=== PATIENT | female | born 1940 | race American Indian/Alaskan Native ===

== ENCOUNTER 2017-04-14 10:12 | Emergency (ER) | payer MEDICARE, OTHER ==
[2017-04-14 10:12] VITALS: BMI 25.0
--- NOTE | 2017-04-14 10:44 | C.PDOC ---
History Of Present Illness 77-year-old female, PMHx includes Anemia, Hypertension, CAD, Asthma, Hypothyroidism, Diabetes, and ESRD, brought to the emergency department for evaluation of light headedness during her dialysis (dialysis was completed). Patient's blood sugar was checked in the field - 83. She was given packets of glucose, with improvement of symptoms. She denies chest pain, shortness of breath, cough, fever, nausea, vomiting, diarrhea. Patient takes Novolog and Lantus for her DM. Nephrology- Herson Dueñas MD. Time Seen by Provider: 04/14/17 10:12 Chief Complaint (Nursing): Dizziness/Lightheaded History Per: Patient History/Exam Limitations: no limitations Onset/Duration Of Symptoms: Days Severity: Mild Past Medical History Reviewed: Historical Data, Nursing Documentation, Vital Signs Vital Signs: Last Vital Signs Temp 97.6 F 04/14/17 11:00 Pulse 75 04/14/17 12:37 Resp 16 04/14/17 12:37 BP 149/85 04/14/17 12:37 Pulse Ox 98 04/19/17 17:39 - Medical History PMH: Anemia, Asthma, CAD, Diabetes, HTN, Hypothyroidism, End Stage Renal Disease (3 x a week m-w-), Chronic Kidney Disease Surgical History: Coronary Stent - [facility] Procedures ASPIRATION SKIN & SUBQ (04/23/14) EXCISION OF RIGHT LOBE LIVER, PERCUTANEOUS APPROACH, DIAGN (04/01/16) FLUOROSCOPY OF GALLBLADDER & BILE DUCT USING L OSM CONTRAST (04/01/16) HEMODIALYSIS (02/17/15) PERFORMANCE OF URINARY FILTRATION, SINGLE (09/02/16) RESECTION OF GALLBLADDER, PERCUTANEOUS ENDOSCOPIC APPROACH (04/01/16) Family History: States: No Known Family Hx - Social History Hx Tobacco Use: No Hx Alcohol Use: No Hx Substance Use: No - Immunization History Hx Tetanus Toxoid Vaccination: No Hx Influenza Vaccination: No Hx Pneumococcal Vaccination: No Review Of Systems Except As Marked, All Systems Reviewed And Found Negative. Constitutional: Negative for: Fever Cardiovascular: Positive for: Light Headedness. Negative for: Chest Pain, Palpitations Respiratory: Negative for: Cough, Shortness of Breath Gastrointestinal: Negative for: Nausea, Vomiting, Abdominal Pain, Diarrhea Musculoskeletal: Negative for: Back Pain Skin: Negative for: Rash Neurological: Negative for: Headache, Dizziness Physical Exam - Physical Exam Appears: Well, Non-toxic, No Acute Distress Skin: Warm, Dry, No Rash Head: Normacephalic Eye(s): bilateral: Normal Inspection, PERRL, EOMI Oral Mucosa: Moist Neck: Normal, Normal ROM Cardiovascular: Rhythm Regular Respiratory: Normal Breath Sounds, No Rales, No Rhonchi, No Wheezing Gastrointestinal/Abdominal: Normal Exam, Bowel Sounds, Soft, No Tenderness Extremity: Normal ROM, Other (AV FISTULA IN RIGHT UPPER EXT WITH PALPABLE THRILL ) Pulses: Left Dorsalis Pedis: Normal, Right Dorsalis Pedis: Normal Neurological/Psych: Oriented x3 ED Course And Treatment - Laboratory Results Result Diagrams: 04/14/17 10:44 04/14/17 10:44 ECG: Interpreted By Me, Viewed By Me (sinus rhythm 66 bpm, PVCs, left axis deviation, no acute ST/T wave changes) O2 Sat by Pulse Oximetry: 98 (RA) Pulse Ox Interpretation: Normal - Radiology CXR: Interpreted by Me, Viewed By Me (no infiltrates/effusions) Progress Note: Bloodwork, EKG, Chest X-Ray ordered and reviewed. Patient requesting something to eat - fed in ED. Reevaluation Time: 12:15 Reassessment Condition: Improved (Patient reassessed, is currently resting comfortably, in no distress/pain. Patient states she feels much better and would like to be discharged home. Vitals are WNL, patient is well appearing and ambulating normally in ED. She was discharged home, instructed to follow up with PMD in 1-2 days. She understands she should return to ED if symptoms return/worsen.) Disposition Counseled Patient/Family Regarding: Studies Performed, Diagnosis, Need For Followup - Disposition Referrals: Herson Dueñas MD [Staff Provider] - Disposition: HOME/ ROUTINE Disposition Time: 12:15 Condition: STABLE Additional Instructions: FOLLOW UP WITH YOUR DOCTOR IN 1-2 DAYS EAT REGULAR MEALS RETURN TO ER IF YOU HAVE ANY CONCERNING SYMPTOMS Instructions: Lightheadedness (ED) Print Language: CYMRO - POA Present On Arrival: None - Clinical Impression Clinical Impression: Lightheadedness - Scribe Statement The provider has reviewed the documentation as recorded by the Scribhuey De León All medical record entries made by the Scribe were at my direction and personally dictated by me. I have reviewed the chart and agree that the record accurately reflects my personal performance of the history, physical exam, medical decision making, and the department course for this patient. I have also personally directed, reviewed, and agree with the discharge instructions and disposition.
--- NOTE | 2017-04-14 10:59 | RAD ---
PROCEDURE: CHEST RADIOGRAPH, 1 VIEW HISTORY: SOB COMPARISON: 09/02/2016 FINDINGS: LUNGS: Poor inspiration with low lung volumes, mild crowded bronchovascular markings and mild bibasilar atelectasis. . Previously noted mild venous congestive changes improved however there may be some mild chronic compensated pulmonary venous congestion. PLEURA: No pneumothorax or pleural fluid seen. CARDIOVASCULAR: Mild cardiomegaly. OSSEOUS STRUCTURES: Degenerative changes both shoulder girdles. Wilder VISUALIZED UPPER ABDOMEN: Normal. OTHER FINDINGS: Re- demonstrated is in situ endovascular stent within the medial aspect soft tissues right upper extremity with adjacent spur-surrounding multiple metallic vascular clips IMPRESSION: Poor inspiration with low lung volumes, mild crowded bronchovascular markings and mild bibasilar atelectasis. . Previously noted mild venous congestive changes improved however there may be some mild chronic compensated pulmonary venous congestion. Cardiomegaly.
[2017-04-14 11:12] LABS: BASO # 0.1 K/uL (0.0-0.2); BASO % 1.7 % (0.0-2.0); EOS # 0.3 K/uL (0.0-0.7); EOS % 5.9 % (0.0-4.0); HEMATOCRIT 36.3 % (34.0-47.0); LYMPH # 1.6 K/uL (1.0-4.3); LYMPH % 26.7 % (20.0-40.0); MEAN CELL VOLUME 78.7 fL (81.0-99.0); MEAN CORPUSCULAR HEMOGLOBIN 25.1 pg (27.0-31.0); MEAN CORPUSCULAR HGB CONC 31.9 g/dL (33.0-37.0); MEAN PLATELET VOLUME 8.9 fL (7.2-11.7); MONO # 0.7 K/uL (0.0-0.8); MONO % 12.5 % (0.0-10.0); NRBC % 0.2 % (0.0-2.0); RED CELL DISTRIBUTION WIDTH 19.8 % (11.5-14.5); WHITE BLOOD COUNT 5.8 K/uL (4.8-10.8)
[2017-04-14 11:27] LABS: POTASSIUM 3.9 mmol/L (3.6-5.2)
[2017-04-14 11:29] LABS: ALB/GLOB RATIO 1.2 (1.0-2.1); TOTAL PROTEIN 8.3 g/dL (6.3-8.3)
[2017-04-14 11:30] LABS: CALCIUM 8.7 mg/dl (8.6-10.4)
[2017-04-14 11:39] VITALS: PULSE 75; TEMP 97.6
[2017-04-14 11:39] LABS: TROPONIN I 0.064 ng/mL (0.00-0.120)
[2017-04-14 12:38] VITALS: BP 149/85; RESP 16; O2SAT 98
--- NOTE | 2017-04-15 18:41 | CARD ---
APPROVED REPORT EKG Measurement Heart [id number] <Conclusion> Sinus rhythm with occasional premature ventricular complexes Cannot rule out Anterior infarct, age undetermined Prolonged QT Abnormal ECG
== END 2017-04-14 12:37 | disposition home or self-care (01) ==
LOC: C.ER 10:12
DX: R42 Dizziness and giddiness (principal); I12.0 Hypertensive chronic kidney disease with stage 5 chronic kidney disease or end stage renal disease; E11.22 Type 2 diabetes mellitus with diabetic chronic kidney disease; N18.6 End stage renal disease; Z99.2 Dependence on renal dialysis

== ENCOUNTER 2017-05-14 09:42 | Observation (INO) | payer MEDICARE, OTHER ==
[2017-05-14 09:42] VITALS: BMI 25.0
--- NOTE | 2017-05-14 10:52 | C.PDOC ---
History Of Present Illness 77 year old patient, with a past medical history of Anemia, Asthma, CAD, Diabetes, HTN, Hypothyroidism, End Stage Renal Disease (M,W,F), BIBA for evaluation of left sided chest pain that began prior to arrival. Patient was at the end of her dialysis session when the pain began (approx 30 min left). She was given Aspirin and SL nitro ICT SECURITY SPECIALIST. Patient states she still has chest pain, but it has decreased in intensity. Patient denies shortness of breath, cough, fever, palpitations, nausea/vomiting. She states she was scheduled for a stress test today by Dr. Lenore Castellanos. Time Seen by Provider: 05/14/17 09:47 Chief Complaint (Nursing): Chest Pain History Per: Patient History/Exam Limitations: no limitations Onset/Duration Of Symptoms: Hrs (prior to arrival) Current Symptoms Are (Timing): Still Present Context: Other Severity: Mild Quality: "Pain" Exacerbating Factors: None Nitro Therapy Administered: 1 (at dialysis), Partial Relief Recent travel outside of the [place]: No Additional History Per: EMS Past Medical History Reviewed: Historical Data, Nursing Documentation, Vital Signs Vital Signs: Last Vital Signs Temp 98.2 F 05/16/17 14:40 Pulse 54 L 05/16/17 16:00 Resp 17 05/16/17 16:00 BP 118/82 05/16/17 16:00 Pulse Ox 97 05/16/17 16:00 - Medical History PMH: Anemia, Asthma, CAD, Diabetes, HTN, Hypothyroidism, End Stage Renal Disease (3 x a week m-w-f), Chronic Kidney Disease Surgical History: Coronary Stent - [facility] Procedures ASPIRATION SKIN & SUBQ (04/23/14) EXCISION OF RIGHT LOBE LIVER, PERCUTANEOUS APPROACH, DIAGN (04/01/16) FLUOROSCOPY OF GALLBLADDER & BILE DUCT USING L OSM CONTRAST (04/01/16) HEMODIALYSIS (02/17/15) PERFORMANCE OF URINARY FILTRATION, SINGLE (09/02/16) RESECTION OF GALLBLADDER, PERCUTANEOUS ENDOSCOPIC APPROACH (04/01/16) Family History: States: No Known Family Hx - Social History Hx Tobacco Use: No Hx Alcohol Use: No Hx Substance Use: No - Immunization History Hx Tetanus Toxoid Vaccination: No Hx Influenza Vaccination: No Hx Pneumococcal Vaccination: No Review Of Systems Except As Marked, All Systems Reviewed And Found Negative. Constitutional: Negative for: Fever Cardiovascular: Positive for: Chest Pain. Negative for: Palpitations Respiratory: Negative for: Cough, Shortness of Breath Gastrointestinal: Negative for: Nausea, Vomiting, Abdominal Pain, Diarrhea Physical Exam - Physical Exam Appears: Well, Non-toxic, No Acute Distress Skin: Warm, Dry Head: Normacephalic Eye(s): bilateral: Normal Inspection Oral Mucosa: Moist Neck: Normal ROM, Supple Cardiovascular: Rhythm Regular Respiratory: Normal Breath Sounds, No Rales, No Rhonchi, No Wheezing Gastrointestinal/Abdominal: Normal Exam, Bowel Sounds, Soft, No Tenderness Extremity: Normal ROM, No Tenderness, No Pedal Edema, No Calf Tenderness, No Swelling Neurological/Psych: Oriented x3, Other (speaking in full sentences) ED Course And Treatment - Laboratory Results Result Diagrams: 05/16/17 08:27 05/16/17 08:27 ECG: Interpreted By Me, Viewed By Me (sinus tachycardia 119 bpm, left axis deviation, PVCs, nonspecific ST elevation V2 - unchanged from prior EKG 04/14/17) ECG Rhythm: Sinus Tachycardia, PVC ECG Interpretation: No Changes From Prior, Abnormal Rate From EC (bpm) O2 Sat by Pulse Oximetry: 100 (room air) Pulse Ox Interpretation: Normal - Other Rad chest x-ray X-Ray: Read By Radiologist (Dilip Daly MD) Interpretation: PROCEDURE: CHEST RADIOGRAPH, 1 VIEW. HISTORY: cp. COMPARISON : Comparison chest 04/14/2017. Comparison chest. FINDINGS: LUNGS: The right lung apex partially obscured by overlying facial soft tissue and mandible artifact. Lung alejandro are otherwise clear. PLEURA: No pneumothorax or pleural fluid seen. CARDIOVASCULAR: Heart size is upper limits of normal/ borderline enlarged. Aorta is slightly ectatic and uncoiled. OSSEOUS STRUCTURES: No significant abnormalities. VISUALIZED UPPER ABDOMEN: Normal. OTHER FINDINGS: Re- demonstrated is in situ vascular stent medial soft tissues proximal right upper extremity. IMPRESSION: Slightly limited study demonstrating no acute cardiopulmonary disease. Progress Note: Blood work, EKG, CXR ordered and reviewed. Patient already given SL nitro and ASA prior to ED arrival. Discussed patient with Dr. Castellanos , patient to be admitted to hospitalist service for chest pain, r/o ACS. - Physician Consult Information Physician Contacted: Justyna Reyez Outcome Of Conversation: Hospitalist accepts patient for obs tele - chest pain, r/o ACS. Disposition - Disposition Disposition: HOSPITALIZED Disposition Time: 13:46 Condition: STABLE - Clinical Impression Clinical Impression: ESRD (end stage renal disease), Chest pain - Scribe Statement The provider has reviewed the documentation as recorded by the Scribe Melony Garcia Provider Attestation: All medical record entries made by the Scribe were at my direction and personally dictated by me. I have reviewed the chart and agree that the record accurately reflects my personal performance of the history, physical exam, medical decision making, and the department course for this patient. I have also personally directed, reviewed, and agree with the discharge instructions and disposition. Decision To Admit - Pt Status Changed To: Hospital Disposition Of: Observation - . Bed Request Type: Telemetry Admitting Physician: Justyna Reyez Patient Diagnosis: Chest pain, ESRD (end stage renal disease)
--- NOTE | 2017-05-14 11:02 | RAD ---
PROCEDURE: CHEST RADIOGRAPH, 1 VIEW HISTORY: cp COMPARISON: Comparison chest 04/14/2017. Comparison chest FINDINGS: LUNGS: The right lung apex partially obscured by overlying facial soft tissue and mandible artifact. Lung alejandro are otherwise clear PLEURA: No pneumothorax or pleural fluid seen. CARDIOVASCULAR: Heart size is upper limits of normal/ borderline enlarged. Aorta is slightly ectatic and uncoiled. OSSEOUS STRUCTURES: No significant abnormalities. VISUALIZED UPPER ABDOMEN: Normal. OTHER FINDINGS: Re- demonstrated is in situ vascular stent medial soft tissues proximal right upper extremity IMPRESSION: Slightly limited study demonstrating no acute cardiopulmonary disease.
[2017-05-14 11:11] LABS: BASO # 0.1 K/uL (0.0-0.2); BASO % 1.6 % (0.0-2.0); EOS # 0.2 K/uL (0.0-0.7); EOS % 5.8 % (0.0-4.0); HEMATOCRIT 37.9 % (34.0-47.0); LYMPH # 0.9 K/uL (1.0-4.3); LYMPH % 21.8 % (20.0-40.0); MEAN CELL VOLUME 82.1 fL (81.0-99.0); MEAN CORPUSCULAR HEMOGLOBIN 25.9 pg (27.0-31.0); MEAN CORPUSCULAR HGB CONC 31.5 g/dL (33.0-37.0); MEAN PLATELET VOLUME 8.2 fL (7.2-11.7); MONO # 0.4 K/uL (0.0-0.8); MONO % 11.1 % (0.0-10.0); NRBC % 0.1 % (0.0-2.0); RED CELL DISTRIBUTION WIDTH 18.3 % (11.5-14.5)
[2017-05-14 11:28] LABS: POTASSIUM 3.9 mmol/L (3.6-5.2)
[2017-05-14 11:31] LABS: ALB/GLOB RATIO 1.3 (1.0-2.1); CALCIUM 8.1 mg/dl (8.6-10.4); TOTAL PROTEIN 7.7 g/dL (6.3-8.3)
[2017-05-14 11:42] LABS: TROPONIN I 0.047 ng/mL (0.00-0.120)
--- NOTE | 2017-05-14 14:10 | CP.PCM.HP ---
<Carole Heart - Last Filed: 05/14/17 16:08> History of Present Illness - History of Present Illness History of Present Illness: CC: chest pain HPI: 77 year old female with extensive PMHx significant for coronary stent placement, HTN, DM, ESRD on HD and CVA presents with chief complaint of chest pain earlier today while at dialysis. Patient states that she was at hemodialysis center when she passed out on the bed. Patient states that she was experiencing some chest pain at the time and was administered 4 baby aspirins . The pain was described as a sharp 9/10 pain without radiation. She denied associations with ambulation, respirations or body positions. EMS was called and patient was brought for evaluation. Patient states that she has never experienced such an occurrence. She states that her symptoms have now resolved. Patient now denies chest pain, palpitaitons, shortness of breath, vision changes, headaches, abdominal pain, nausea paresthesias at this time. PMH: as stated above PSH: AV fistula, AV graft, coronary stent, cholecystectomy, liver cyst drainage Home meds: Amlodipine 10 mg daily, ASA 81 mg daily, Lipitor 20 mg daily, Coreg 3.125 mg daily, Sensipar 30 mg daily, Catapres 0.3 mg PO BID, Nexium 40 mg daily , Cozaar 50 mg PO daily, Trileptal 150 mg PO daily, Calcium acetate 667 mg Po daily, Crestor 10 mg Po daily, Crestor 0 mg daily, Megestrol Acetate 40 mg daily FMH: father had DM and ESRD Social: denied ETOH, ever smoking or drug use Allergies: NKDA PMD: Dr. Liz Alexander Present on Admission - Present on Admission Any Indicators Present on Admission: No Review of Systems - Cardiovascular Cardiovascular: Chest Pain, Syncope. absent: Palpitations - Respiratory Respiratory: absent: Cough - Gastrointestinal Gastrointestinal: Vomiting. absent: Abdominal Pain - Genitourinary Genitourinary: absent: Change in Urinary Stream - Musculoskeletal Musculoskeletal: absent: Muscle Weakness, Numbness - Integumentary Integumentary: Dry Skin - Neurological Neurological: absent: Confusion, Numbness - Psychiatric Psychiatric: absent: Anxiety Past Patient History - Infectious Disease Hx of Infectious Diseases: None - Tetanus Immunizations Tetanus Immunization: Unknown - Past Medical History & Family History Past Medical History?: Yes - Past Social History Smoking Status: Never Smoked Alcohol: None Drugs: Denies Home Situation {Lives}: Alone - CARDIAC Hx Hypertension: Yes - PULMONARY Hx Asthma: Yes - NEUROLOGICAL Hx Neurological Disorder: No - HEENT Hx HEENT Problems: No - RENAL Hx Chronic Kidney Disease: Yes - ENDOCRINE/METABOLIC Hx Hypothyroidism: Yes - HEMATOLOGICAL/ONCOLOGICAL Hx Anemia: Yes - INTEGUMENTARY Hx Dermatological Problems: No - MUSCULOSKELETAL/RHEUMATOLOGICAL Hx Musculoskeletal Disorders: No Hx Falls: No - GASTROINTESTINAL Hx Gastrointestinal Disorders: No - GENITOURINARY/GYNECOLOGICAL Hx Genitourinary Disorders: No - PSYCHIATRIC Hx Substance Use: No - SURGICAL HISTORY Hx Coronary Stent: Yes - ANESTHESIA Hx Anesthesia: Yes Hx Anesthesia Reactions: No Hx Malignant Hyperthermia: No Meds Allergies/Adverse Reactions: Allergies Allergy/AdvReac Type Severity Reaction Status Date / Time No Known Allergies Allergy Verified 04/14/17 10:20 Physical Exam - Constitutional Appears: Non-toxic - Head Exam Head Exam: ATRAUMATIC, NORMAL INSPECTION, NORMOCEPHALIC - Eye Exam Eye Exam: EOMI, Normal appearance, PERRL Pupil Exam: NORMAL ACCOMODATION - ENT Exam ENT Exam: Mucous Membranes Moist, Normal Exam - Neck Exam Neck exam: Positive for: Full Rom - Respiratory Exam Respiratory Exam: NORMAL BREATHING PATTERN. absent: Wheezes - Cardiovascular Exam Cardiovascular Exam: REGULAR RHYTHM, +S1, +S2 - GI/Abdominal Exam GI & Abdominal Exam: Normal Bowel Sounds, Soft - Extremities Exam Extremities exam: Positive for: full ROM, pedal edema (trace), pedal pulses present - Back Exam Back exam: FULL ROM - Neurological Exam Neurological exam: Alert, CN II-XII Intact, Oriented x3 - Psychiatric Exam Psychiatric exam: Normal Affect, Normal Mood - Skin Skin Exam: Dry, Intact, Normal Color, Warm Results - Vital Signs Recent Vital Signs: Last Vital Signs Temp 98.4 F 05/14/17 09:49 Pulse 73 05/14/17 13:25 Resp 18 05/14/17 13:25 BP 159/69 H 05/14/17 13:25 Pulse Ox 100 05/14/17 13:50 - Labs Result Diagrams: 05/14/17 10:48 05/14/17 10:48 Assessment & Plan (1) Chest pain, rule out acute myocardial infarction Assessment and Plan: EKG:Sinus tachy with premature supraventricular complexes noted Troponin 1 negative Hx of coronary stent placement years ago (Pt could not quantify when) ASA 81 mg, Crestor 10 mg F/U HSAWNA 2 and 3 with EKGS F/U Echo, Lipid Panel, Hgb A1c, Thyroid studies Status: Acute (2) ESRD on hemodialysis Assessment and Plan: ESRD on HD M,W,F Had HD on 05/14 Calcium Acetate 667 mg PO TID Consult to Nephrology Dr. Dueñas- F/U Status: Chronic (3) DM type 2 (diabetes mellitus, type 2) Assessment and Plan: Accuchecks ISS F/U Hgb A1c ESRD on HD M,W,F Had HD on 05/14 Status: Chronic (4) Hypertension Assessment and Plan: Continue Home Meds at this time: Amlodipine, Coreg, Cozaar, Catapres Hold parameters for SBP under 110 Continue to monitor BP Status: Chronic (5) Prophylactic measure Assessment and Plan: Heparin SC Q12 PPI 40 mg daily SCDs Status: Acute <Justyna Reyez V - Last Filed: 05/16/17 10:53> Results - Vital Signs Recent Vital Signs: Last Vital Signs Temp 98.1 F 05/16/17 07:10 Pulse 59 L 05/16/17 07:10 Resp 20 05/16/17 07:10 BP 155/69 H 05/16/17 07:10 Pulse Ox 97 05/16/17 07:10 - Labs Result Diagrams: 05/16/17 08:27 05/16/17 08:27 Labs: Laboratory Results - last 24 hr 05/15/17 05/15/17 05/15/17 07:37 11:31 16:02 WBC RBC Hgb Hct MCV MCH MCHC RDW Plt Count MPV Neut % (Auto) Lymph % (Auto) White % (Auto) Eos % (Auto) Baso % (Auto) Neut # Lymph # White # Eos # Baso # Sodium Potassium Chloride Carbon Dioxide Anion Gap BUN Creatinine 7.4 H* D Est GFR ( Amer) Est GFR (Non-Af Amer) POC Glucose (mg/dL) 152 H 94 Random Glucose Calcium Phosphorus Magnesium Total Bilirubin AST ALT Alkaline Phosphatase Total Protein Albumin Globulin Albumin/Globulin Ratio 05/15/17 05/15/17 05/16/17 17:59 21:40 06:44 WBC RBC Hgb Hct MCV MCH MCHC RDW Plt Count MPV Neut % (Auto) Lymph % (Auto) White % (Auto) Eos % (Auto) Baso % (Auto) Neut # Lymph # White # Eos # Baso # Sodium Potassium Chloride Carbon Dioxide Anion Gap BUN Creatinine Est GFR ( Amer) Est GFR (Non-Af Amer) POC Glucose (mg/dL) 206 H 218 H 165 H Random Glucose Calcium Phosphorus Magnesium Total Bilirubin AST ALT Alkaline Phosphatase Total Protein Albumin Globulin Albumin/Globulin Ratio 05/16/17 05/16/17 08:27 08:27 WBC 4.1 L RBC 4.14 Hgb 11.0 Hct 34.4 MCV 82.9 MCH 26.6 L MCHC 32.1 L RDW 18.0 H Plt Count 200 MPV 8.5 Neut % (Auto) 40.9 L Lymph % (Auto) 33.2 White % (Auto) 14.6 H Eos % (Auto) 9.1 H Baso % (Auto) 2.2 H Neut # 1.7 L Lymph # 1.4 White # 0.6 Eos # 0.4 Baso # 0.1 Sodium 134 Potassium 4.9 Chloride 95 L Carbon Dioxide 29 Anion Gap 15 BUN 29 H Creatinine 5.8 H Est GFR ( Amer) 9 Est GFR (Non-Af Amer) 7 POC Glucose (mg/dL) Random Glucose 131 H Calcium 8.2 L Phosphorus 4.8 H Magnesium 2.2 Total Bilirubin 0.6 AST 35 ALT 12 Alkaline Phosphatase 112 Total Protein 6.8 Albumin 3.5 D Globulin 3.3 Albumin/Globulin Ratio 1.1 Attending/Attestation - Attestation I have personally seen and examined this patient.: Yes I have fully participated in the care of the patient.: Yes I have reviewed all pertinent clinical information: Yes Notes (Text): This is late computer entry for 05/14/17. Patient seen, examined and case discussed with day-time resident. Patient seen at bedside, reporting she had chest pain during her dialysis session, which prompted the dialysis to send her to the emergency room for evaluation. Patient's PMD/Secondary Market Manager informed by the emergency room; and was actually scheduled for outpatient stress test the day after but came into the emergency room. Patient has history of CAD with stents, Diabetes, and Hypertension. Discussed admitting orders with admitting resident. Observe patient on telemetry. Consult patient's host hostess for dialysis orders. Will follow-up with patient's production sound mixer/PMD if further cardiac is needed. Assessment & Plan (1) Chest pain Assessment and Plan: * EKG:Sinus tachy with premature supraventricular complexes noted * Troponin 1 negative * Hx of coronary stent placement years ago (Pt could not quantify when) * ASA 81 mg PO daily * Crestor 10 mg PO qHS * F/U SHAWNA 2 and 3 with EKGS * F/U Echo, Lipid Panel, Hgb A1c, Thyroid studies Status: Acute (2) CAD with stent Assessment and Plan: * ASA 81 mg PO daily * Crestor 10 mg PO qHS * F/U SHAWNA 2 and 3 with EKGS * F/U Echo, Lipid Panel, Hgb A1c, Thyroid studies * Amlodipine 10mg PO qdaily * Coreg 6.25mg PO bid * Clonidine 0.3mg PO bid Status: Acute (3) ESRD on hemodialysis Assessment and Plan: * ESRD on HD M,W,F as outpatient * Had HD on 05/14 * Calcium Acetate 667 mg PO TID * Consult to Nephrology Dr. Dueñas- patient's host hostess Status: Chronic (4) DM type 2 (diabetes mellitus, type 2) Assessment and Plan: * Accuchecks QAC and HS * ISS * F/U Hgb A1c Status: Chronic (5) Hypertension Assessment and Plan: * Amlodipine 10mg PO qdaily * Coreg 6.25mg PO bid * Clonidine 0.3mg PO bid * ESRD on MWF * Completed dialysis on admission Status: Chronic (6) Prophylactic measure Assessment and Plan: * Heparin 5000 unit SC Q12 * Protonix 40 mg daily * SCDS b/l Status: Acute
--- NOTE | 2017-05-14 15:54 | CP.PCM.CON ---
History of Present Illness - History of Present Illness History of Present Illness: CC: chest pain HPI: 77 year old female with extensive PMHx significant for coronary stent placement, HTN, DM, ESRD on HD and CVA presents with chief complaint of chest pain earlier today while at dialysis. Patient states that she was at hemodialysis center when she passed out on the bed. Patient states that she was experiencing some chest pain at the time and was administered 4 baby aspirins . The pain was described as a sharp 9/10 pain without radiation. She denied associations with ambulation, respirations or body positions. EMS was called and patient was brought for evaluation. Patient states that she has never experienced such an occurrence. She states that her symptoms have now resolved. Patient now denies chest pain, palpitaitons, shortness of breath, vision changes, headaches, abdominal pain, nausea paresthesias at this time. PMH: as stated above PSH: AV fistula, AV graft, coronary stent, cholecystectomy, liver cyst drainage Home meds: Amlodipine 10 mg daily, ASA 81 mg daily, Lipitor 20 mg daily, Coreg 3.125 mg daily, Sensipar 30 mg daily, Catapres 0.3 mg PO BID, Nexium 40 mg daily , Cozaar 50 mg PO daily, Trileptal 150 mg PO daily, Calcium acetate 667 mg Po daily, Crestor 10 mg Po daily, Crestor 0 mg daily, Megestrol Acetate 40 mg daily FMH: father had DM and ESRD Social: denied ETOH, ever smoking or drug use Allergies: NKDA Dialysis done today. For cardiac evaluation. Will reschedule dialysis as needed. Consult dictated Past Patient History - Infectious Disease Hx of Infectious Diseases: None - Tetanus Immunizations Tetanus Immunization: Unknown - Past Medical History & Family History Past Medical History?: Yes - Past Social History Smoking Status: Never Smoked - CARDIAC Hx Hypertension: Yes - PULMONARY Hx Asthma: Yes - NEUROLOGICAL Hx Neurological Disorder: No - HEENT Hx HEENT Problems: No - RENAL Hx Chronic Kidney Disease: Yes - ENDOCRINE/METABOLIC Hx Hypothyroidism: Yes - HEMATOLOGICAL/ONCOLOGICAL Hx Anemia: Yes - INTEGUMENTARY Hx Dermatological Problems: No - MUSCULOSKELETAL/RHEUMATOLOGICAL Hx Musculoskeletal Disorders: No Hx Falls: No - GASTROINTESTINAL Hx Gastrointestinal Disorders: No - GENITOURINARY/GYNECOLOGICAL Hx Genitourinary Disorders: No - PSYCHIATRIC Hx Substance Use: No - SURGICAL HISTORY Hx Coronary Stent: Yes - ANESTHESIA Hx Anesthesia: Yes Hx Anesthesia Reactions: No Hx Malignant Hyperthermia: No Meds Allergies/Adverse Reactions: Allergies Allergy/AdvReac Type Severity Reaction Status Date / Time No Known Allergies Allergy Verified 04/14/17 10:20 - Medications Medications: Current Medications Amlodipine Besylate (Norvasc) 10 mg PO DAILY [facility] Aspirin (Ecotrin) 81 mg PO DAILY [facility] Carvedilol (Coreg) 3.125 mg PO DAILY [facility] Cinacalcet (Sensipar) 30 mg PO DAILY [facility] Clonidine HCl (Catapres) 0.3 mg PO BID [facility] Heparin Sodium (Porcine) (Heparin) 5,000 units SC Q12 [facility] Home Med (Atorvastatin [Lipitor]) 20 mg PO DAILY [facility] Home Med (Calcium Acetate [Phoslo]) 667 mg PO DAILY [facility] Home Med (Esomeprazole Magnesium [Nexium]) 40 mg PO DAILY [facility] Insulin Aspart (Novolog) 0 unit SC ACHS [facility] PRN Reason: Protocol Oxcarbazepine (Trileptal) 150 mg PO DAILY [facility] Results - Vital Signs Recent Vital Signs: Last Vital Signs Temp 98.4 F 05/14/17 09:49 Pulse 73 05/14/17 13:25 Resp 18 05/14/17 13:25 BP 159/69 H 05/14/17 13:25 Pulse Ox 100 05/14/17 13:50 - Labs Result Diagrams: 05/14/17 10:48 05/14/17 10:48
[2017-05-14] MEDS: (Novolog) Insulin Aspart, Recombinant 100 u/ml 10 ml vial SC SCH ×2 (17:37→22:00)
--- NOTE | 2017-05-14 18:42 | CON ---
DATE: 05/14/2017 HISTORY OF PRESENT ILLNESS: The patient is a 77-year-old female with past medical history of end-sta ge renal disease and known coronary artery disease. She presented with initially chest pain at dialy [facility], received nitroglycerin at dialysis. She had a syncopal episode. It is unclear if this preceded the chest pain or afterwards. She was brought into the Emergency Department by EMS from the dialysi s unit. She received almost a full dialysis today. PAST MEDICAL HISTORY: End-stage renal disease, coronary artery disease for which she is status post coronary stent placement, diabetes mellitus type 2, hypertension, diabetic nephropathy and is status post cerebrovascular accident. PAST SURGICAL HISTORY: Cholecystectomy, the coronary stent, AV graft, a previous AV fistula which fa iled, and liver cyst drainage. MEDICATIONS: Include amlodipine, aspirin, Lipitor, Coreg, Sensipar, Catapres, Nexium, Cozaar, Trilep lenin, calcium acetate, Crestor, Megace recently for poor nutrition. FAMILY HISTORY: Has several children with chronic kidney disease. REVIEW OF SYSTEMS: Significant for chest pain at times with increased activity, but not recently. S he has dyspnea on exertion at 2-3 blocks. No new rashes, no visual disturbances, hearing deficits. No nausea, vomiting, diarrhea. She has little urine output. Other review of systems are all negativ e. PHYSICAL EXAMINATION: VITAL SIGNS: Blood pressure 159/69, pulse 73, temperature 98.4, pulse ox was 100%. HEENT: Anicteric. Mouth was clear. NECK: No JVD. LUNGS: Lung alejandro were clear. HEART: Regular rhythm, no murmur. ABDOMEN: Soft, benign, no mass or organomegaly. EXTREMITIES: She had an upper extremity AV graft with a thrill and bruit. No peripheral edema. NEUROLOGIC: No focal deficits. BLOOD WORK: Showed hemoglobin 11.9, potassium of 3.9, creatinine of 4.8 (that is post-dialysis), emiliano cium 8.1. ProBNP is 30,700. The one troponin was negative. DIAGNOSTIC DATA: She had a chest x-ray. It was a limited study, but no congestive heart failure see n or infiltrate. IMPRESSION: The patient has had a syncopal episode and chest pain earlier. She has end-stage renal disease, history of coronary artery disease, hypertension, diabetes mellitus and a prior history of c erebrovascular accident. PLAN: Will be cardiac workup, possibly a stress test and/or cardiac catheterization and likely echoc ardiogram as well. We will arrange for dialysis on Friday, Friday and Friday. We will follow up. Herson Dueñas MD cc: [id number] TT: 05/14/2017 18:41:45 Confirmation # [id number] Dictation # [id number] kevin
[2017-05-15 07:49] LABS: BASO # 0.1 K/uL (0.0-0.2); EOS # 0.3 K/uL (0.0-0.7); EOS % 6.4 % (0.0-4.0); LYMPH # 1.7 K/uL (1.0-4.3); LYMPH % 32.5 % (20.0-40.0); MEAN CELL VOLUME 81.8 fL (81.0-99.0); MEAN CORPUSCULAR HEMOGLOBIN 26.5 pg (27.0-31.0); MEAN CORPUSCULAR HGB CONC 32.4 g/dL (33.0-37.0); MEAN PLATELET VOLUME 7.7 fL (7.2-11.7); MONO # 0.6 K/uL (0.0-0.8); NRBC % 0.1 % (0.0-2.0); RED CELL DISTRIBUTION WIDTH 18.5 % (11.5-14.5); WHITE BLOOD COUNT 5.4 K/uL (4.8-10.8)
[2017-05-15 08:33] LABS: BILIRUBIN,TOTAL 0.8 mg/dL (0.2-1.3); POTASSIUM 5.5 mmol/L (3.6-5.2)
[2017-05-15 08:34] LABS: ALB/GLOB RATIO 1.2 (1.0-2.1); CALCIUM 8.4 mg/dl (8.6-10.4); PHOSPHOROUS 5.6 mg/dL (2.5-4.5); TOTAL PROTEIN 7.9 g/dL (6.3-8.3)
[2017-05-15 08:35] LABS: MAGNESIUM 2.2 mg/dL (1.6-2.3)
--- NOTE | 2017-05-15 09:12 | CP.PCM.PN ---
<SlyElenaoli - Last Filed: 05/15/17 11:53> Subjective - Date & Time of Evaluation Date of Evaluation: 05/15/17 Time of Evaluation: 07:47 - Subjective Subjective: PGY 1 Medicine Note- Dr. Reyez's service Pt seen and examined in no acute distress. Patient states that she is aware that her blood pressure is elevated. She just received a phone call regarding an appointment that she was to have today. Patient states that she forgot to reschedule yesterday upon arrival here at the hospital. In addition, she just spoke with daughter on the phone who was asking many questions regarding patient 's current stay at the hospital. Patient stated, " I'm dealing with several issues at the moment. You know how family can be". Patient denies subjective fevers or chills, nausea, vomiting, diarrhea or constipation at this time. Objective - Vital Signs/Intake and Output Vital Signs (last 24 hours): Temp Pulse Resp BP Pulse Ox 98.3 F 69 20 186/82 H 96 05/15/17 07:00 05/15/17 07:00 05/15/17 07:00 05/15/17 07:00 05/15/17 07:00 Intake and Output: 05/15/17 05/15/17 06:59 18:59 Intake Total 250 Balance 250 - Medications Medications: Current Medications Amlodipine Besylate (Norvasc) 10 mg PO DAILY [facility] Aspirin (Ecotrin) 81 mg PO DAILY [facility] Calcium Acetate (Phoslo) 667 mg PO TID [facility] Last Admin: 05/14/17 20:24 Dose: 667 mg Carvedilol (Coreg) 3.125 mg PO DAILY [facility] Cinacalcet (Sensipar) 30 mg PO DAILY [facility] Clonidine HCl (Catapres) 0.3 mg PO BID [facility] Last Admin: 05/14/17 20:24 Dose: 0.3 mg Heparin Sodium (Porcine) (Heparin) 5,000 units SC Q12 [facility] Last Admin: 05/14/17 21:56 Dose: 5,000 units Hydralazine HCl (Apresoline) 10 mg IVP Q6H PRN PRN Reason: Systolic Blood Pressure Insulin Aspart (Novolog) 0 unit SC ACHS [facility] PRN Reason: Protocol Last Admin: 05/14/17 22:00 Dose: Not Given Oxcarbazepine (Trileptal) 150 mg PO DAILY [facility] Pantoprazole Sodium (Protonix Ec Tab) 40 mg PO DAILY [facility] Rosuvastatin Calcium (Crestor) 10 mg PO HS [facility] Last Admin: 05/14/17 21:55 Dose: Not Given - Labs Labs: 05/15/17 07:37 05/15/17 07:37 PT 11.0 SECONDS (9.7-12.2) 05/15/17 07:37 INR 1.0 05/15/17 07:37 APTT 29 SECONDS (21-34) 05/15/17 07:37 - Constitutional Appears: Non-toxic, No Acute Distress - Head Exam Head Exam: ATRAUMATIC, NORMAL INSPECTION, NORMOCEPHALIC - Eye Exam Eye Exam: EOMI, Normal appearance, PERRL Pupil Exam: NORMAL ACCOMODATION - ENT Exam ENT Exam: Mucous Membranes Moist - Neck Exam Neck Exam: Full ROM - Respiratory Exam Respiratory Exam: NORMAL BREATHING PATTERN. absent: Wheezes - Cardiovascular Exam Cardiovascular Exam: +S1, +S2 - GI/Abdominal Exam GI & Abdominal Exam: Soft, Normal Bowel Sounds - Extremities Exam Extremities Exam: Full ROM, Normal Capillary Refill - Back Exam Back Exam: Full ROM - Neurological Exam Neurological Exam: Alert, Awake, CN II-XII Intact, Oriented x3 - Psychiatric Exam Psychiatric exam: Normal Affect, Normal Mood - Skin Skin Exam: Dry, Intact, Normal Color, Warm Assessment and Plan (1) Chest pain, rule out acute myocardial infarction Status: Acute (2) ESRD on hemodialysis Status: Chronic (3) DM type 2 (diabetes mellitus, type 2) Status: Chronic (4) Hypertension Status: Chronic (5) Prophylactic measure Status: Acute - Assessment and Plan (Free Text) Assessment: (1) Chest pain, rule out acute myocardial infarction Assessment and Plan: EKG:Sinus tachy with premature supraventricular complexes noted Hx of coronary stent placement years ago (Pt could not quantify when) ASA 81 mg, Crestor 10 mg ROMIs negative x3 EKGS F/U Echo official reading. Lipid Panel WNL, F/U Hgb A1c, Thyroid studies WNL Status: Acute (2) ESRD on hemodialysis Assessment and Plan: ESRD typically on HD M,W,F . Will need dialysis today due to elevated electrolytes. Had HD on 05/14 though likely not complete due to syncopal event. Calcium Acetate 667 mg PO TID Consult to Nephrology Dr. Dueñas- F/U Status: Chronic (3) DM type 2 (diabetes mellitus, type 2) Assessment and Plan: Accbabatunderustam CARBAJAL F/U Hgb A1c Had HD on 05/14 Status: Chronic (4) Hypertension Assessment and Plan: Continue Home Meds at this time: Amlodipine, Coreg, Cozaar, Catapres Hold parameters for SBP under 110 Hydralazine 10 mg IVP Q6 PRN for SBP above 160 Continue to monitor BP Patient BP elevated early this morning- Likely situational in nature. Gave norvasc dose early. Discussed the effects of life stressors on patient. Status: Chronic (5) Prophylactic measure Assessment and Plan: Heparin SC Q12 PPI 40 mg daily [facility] <Justyna Reyez V - Last Filed: 05/16/17 11:02> Objective - Vital Signs/Intake and Output Vital Signs (last 24 hours): Temp Pulse Resp BP Pulse Ox 98.1 F 59 L 20 155/69 H 97 05/16/17 07:10 05/16/17 07:10 05/16/17 07:10 05/16/17 07:10 05/16/17 07:10 - Medications Medications: Current Medications Amlodipine Besylate (Norvasc) 10 mg PO DAILY [facility] Last Admin: 05/15/17 11:50 Dose: Not Given Aspirin (Ecotrin) 81 mg PO DAILY [facility] Last Admin: 05/16/17 09:58 Dose: 81 mg Calcium Acetate (Phoslo) 667 mg PO TID [facility] Last Admin: 05/16/17 09:58 Dose: 667 mg Carvedilol (Coreg) 6.25 mg PO BID [facility] Last Admin: 05/16/17 09:58 Dose: 6.25 mg Cinacalcet (Sensipar) 30 mg PO DAILY [facility] Last Admin: 05/16/17 09:58 Dose: 30 mg Clonidine HCl (Catapres) 0.3 mg PO BID [facility] Last Admin: 05/16/17 09:57 Dose: 0.3 mg Heparin Sodium (Porcine) (Heparin) 5,000 units SC Q12 [facility] Last Admin: 05/16/17 09:57 Dose: 5,000 units Hydralazine HCl (Apresoline) 10 mg IVP Q6H PRN PRN Reason: Systolic Blood Pressure Insulin Aspart (Novolog) 0 unit SC ACHS [facility] PRN Reason: Protocol Last Admin: 05/16/17 08:23 Dose: 2 unit Oxcarbazepine (Trileptal) 150 mg PO DAILY [facility] Last Admin: 05/16/17 09:58 Dose: 150 mg Pantoprazole Sodium (Protonix Ec Tab) 40 mg PO DAILY [facility] Last Admin: 05/16/17 09:58 Dose: 40 mg Rosuvastatin Calcium (Crestor) 10 mg PO HS [facility] Last Admin: 05/15/17 22:22 Dose: 10 mg - Labs Labs: 05/16/17 08:27 05/16/17 08:27 PT 11.0 SECONDS (9.7-12.2) 05/15/17 07:37 INR 1.0 05/15/17 07:37 APTT 29 SECONDS (21-34) 05/15/17 07:37 Attending/Attestation - Attestation I have personally seen and examined this patient.: Yes I have fully participated in the care of the patient.: Yes I have reviewed all pertinent clinical information, including history, physical exam and plan: Yes Notes (Text): This is a late computer entry for 05/15/17. Patient seen this morning. Patient reports she had stressful conversation with her daughter which will influence her blood pressure. Patient denies chest pain , denies shortness of breathe, denies palpitations. Patient scheduled for additional dialysis session given mildly elevated hyperkalemia by nephrology. Patient has completed echocardiogram, awaiting report. Assessment & Plan (1) Chest pain Assessment and Plan: * EKG:Sinus tachy with premature supraventricular complexes noted * Hx of coronary stent placement years ago (Pt could not quantify when) * ASA 81 mg PO daily * Crestor 10 mg PO qHS * SHAWNA X3: negative * F/U Echo: pending * Hgb A1c: 6.1 * Thyroid studies * Lipid Panel: T, chol: 166, LDL: 62, HDL: 66 Status: Acute (2) CAD with stent Assessment and Plan: * ASA 81 mg PO daily * Crestor 10 mg PO qHS * F/U SHAWNA 2 and 3 with EKGS * F/U Echo, Lipid Panel, Hgb A1c, Thyroid studies * Amlodipine 10mg PO qdaily * Coreg 6.25mg PO bid * Clonidine 0.3mg PO bid * Hgb A1c: 6.1 * Lipid Panel: T, chol: 166, LDL: 62, HDL: 66 Status: Acute (3) ESRD on hemodialysis Assessment and Plan: * ESRD on HD M,W,F as outpatient * Had HD on 05/14 * Calcium Acetate 667 mg PO TID * 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
[2017-05-15] MEDS: Pantoprazole 40 mg EC Tab PO SCH (09:28)
[2017-05-15] MEDS: (Novolog) Insulin Aspart, Recombinant 100 u/ml 10 ml vial SC SCH ×3 (09:29→18:00)
[2017-05-15 09:44] LABS: THYROID STIMULATING HORMONE 0.89 mIU/L (0.46-4.68)
--- NOTE | 2017-05-15 09:56 | CP.PCM.PN ---
Subjective - Date & Time of Evaluation Date of Evaluation: 05/15/17 Time of Evaluation: 09:54 - Subjective Subjective: Feels better; no more CPs, no dyspnea. No new complaint For echo now K=5.5 despite HD on 05/14 Objective - Vital Signs/Intake and Output Vital Signs (last 24 hours): Temp Pulse Resp BP Pulse Ox 98.3 F 69 20 186/82 H 96 05/15/17 07:00 05/15/17 07:00 05/15/17 07:00 05/15/17 07:00 05/15/17 07:00 Intake and Output: 05/15/17 05/15/17 06:59 18:59 Intake Total 250 Balance 250 - Medications Medications: Current Medications Amlodipine Besylate (Norvasc) 10 mg PO DAILY [facility] Aspirin (Ecotrin) 81 mg PO DAILY [facility] Last Admin: 05/15/17 09:28 Dose: 81 mg Calcium Acetate (Phoslo) 667 mg PO TID [facility] Last Admin: 05/15/17 09:28 Dose: 667 mg Carvedilol (Coreg) 3.125 mg PO DAILY [facility] Last Admin: 05/15/17 09:28 Dose: 3.125 mg Cinacalcet (Sensipar) 30 mg PO DAILY [facility] Last Admin: 05/15/17 09:28 Dose: 30 mg Clonidine HCl (Catapres) 0.3 mg PO BID [facility] Last Admin: 05/15/17 09:28 Dose: 0.3 mg Heparin Sodium (Porcine) (Heparin) 5,000 units SC Q12 [facility] Last Admin: 05/15/17 09:30 Dose: 5,000 units Hydralazine HCl (Apresoline) 10 mg IVP Q6H PRN PRN Reason: Systolic Blood Pressure Insulin Aspart (Novolog) 0 unit SC ACHS [facility] PRN Reason: Protocol Last Admin: 05/15/17 09:29 Dose: Not Given Oxcarbazepine (Trileptal) 150 mg PO DAILY [facility] Last Admin: 05/15/17 09:28 Dose: 150 mg Pantoprazole Sodium (Protonix Ec Tab) 40 mg PO DAILY [facility] Last Admin: 05/15/17 09:28 Dose: 40 mg Rosuvastatin Calcium (Crestor) 10 mg PO HS [facility] Last Admin: 05/14/17 21:55 Dose: Not Given - Labs Labs: 05/15/17 07:37 05/15/17 07:37 PT 11.0 SECONDS (9.7-12.2) 05/15/17 07:37 INR 1.0 05/15/17 07:37 APTT 29 SECONDS (21-34) 05/15/17 07:37 - Constitutional Appears: No Acute Distress, Chronically Ill - Head Exam Head Exam: ATRAUMATIC, NORMAL INSPECTION - Eye Exam Eye Exam: EOMI, Normal appearance - Neck Exam Neck Exam: Full ROM. absent: Tenderness - Respiratory Exam Respiratory Exam: Clear to Ausculation Bilateral, NORMAL BREATHING PATTERN - Cardiovascular Exam Cardiovascular Exam: REGULAR RHYTHM, +S1 - GI/Abdominal Exam GI & Abdominal Exam: Soft. absent: Tenderness - Extremities Exam Extremities Exam: Normal Inspection. absent: Tenderness - Neurological Exam Neurological Exam: Alert, CN II-XII Intact - Skin Skin Exam: Dry, Warm Assessment and Plan - Assessment and Plan (Free Text) Assessment: ESRD DM 2 HTN CAD New onset CPs Plan: Dialysis today for elevated K Cardio workup
[2017-05-15] MEDS ORDERED: CALCIUM ACETATE 667 MG PO SCH (10:00)
--- NOTE | 2017-05-15 23:17 | CARD ---
APPROVED REPORT EKG Measurement Heart [id number] CT 194P89 [id number] <Conclusion> Normal sinus rhythm Cannot rule out Inferior infarct, age undetermined Abnormal ECG
--- NOTE | 2017-05-15 23:17 | CARD ---
APPROVED REPORT EKG Measurement Heart [id number] MD [id number] <Conclusion> Normal sinus rhythm Left axis deviation Anterior infarct, age undetermined Abnormal ECG
--- NOTE | 2017-05-15 23:18 | CARD ---
APPROVED REPORT EKG Measurement Heart [id number] MN 162P [id number] <Conclusion> Sinus tachycardia with premature supraventricular complexes and with occasional premature ventricular complexes Nonspecific ST abnormality Abnormal ECG
--- NOTE | 2017-05-16 07:09 | CP.PCM.PN ---
Subjective - Date & Time of Evaluation Date of Evaluation: 05/16/17 Time of Evaluation: 07:09 - Subjective Subjective: PGY 1 Medicine Note- Dr. Reyez's service Pt seen and examined at bedside. She is found resting comfortably, in no acute distress. Nursing reports no acute events overnight. Pt denies any episodes of chest pain or palpitations since admission. Pt noted on tele monitor to be bradycardic overnight. BP well controlled. Pt is normally dialysis MWF, but had extra dialysis yesterday due to elevated K. She has no complaints at this time. She admits tolerating diet and moving bowels without issue. Objective - Vital Signs/Intake and Output Vital Signs (last 24 hours): Temp Pulse Resp BP Pulse Ox 97.7 F 53 L 20 121/65 95 05/15/17 23:29 05/16/17 04:29 05/15/17 23:29 05/15/17 23:29 05/15/17 23:29 - Medications Medications: Current Medications Amlodipine Besylate (Norvasc) 10 mg PO DAILY [facility] Last Admin: 05/15/17 11:50 Dose: Not Given Aspirin (Ecotrin) 81 mg PO DAILY [facility] Last Admin: 05/15/17 09:28 Dose: 81 mg Calcium Acetate (Phoslo) 667 mg PO TID [facility] Last Admin: 05/15/17 18:00 Dose: 667 mg Carvedilol (Coreg) 6.25 mg PO BID [facility] Last Admin: 05/15/17 18:01 Dose: 6.25 mg Cinacalcet (Sensipar) 30 mg PO DAILY [facility] Last Admin: 05/15/17 09:28 Dose: 30 mg Clonidine HCl (Catapres) 0.3 mg PO BID [facility] Last Admin: 05/15/17 18:02 Dose: 0.3 mg Heparin Sodium (Porcine) (Heparin) 5,000 units SC Q12 [facility] Last Admin: 05/15/17 22:22 Dose: 5,000 units Hydralazine HCl (Apresoline) 10 mg IVP Q6H PRN PRN Reason: Systolic Blood Pressure Insulin Aspart (Novolog) 0 unit SC ACHS [facility] PRN Reason: Protocol Last Admin: 05/15/17 18:00 Dose: Not Given Oxcarbazepine (Trileptal) 150 mg PO DAILY [facility] Last Admin: 05/15/17 09:28 Dose: 150 mg Pantoprazole Sodium (Protonix Ec Tab) 40 mg PO DAILY [facility] Last Admin: 05/15/17 09:28 Dose: 40 mg Rosuvastatin Calcium (Crestor) 10 mg PO HS [facility] Last Admin: 05/15/17 22:22 Dose: 10 mg - Labs Labs: 05/15/17 07:37 05/15/17 07:37 PT 11.0 SECONDS (9.7-12.2) 05/15/17 07:37 INR 1.0 05/15/17 07:37 APTT 29 SECONDS (21-34) 05/15/17 07:37 - Additional Findings Additional findings: - Constitutional Appears: Non-toxic, No Acute Distress - Head Exam Head Exam: ATRAUMATIC, NORMAL INSPECTION, NORMOCEPHALIC - Eye Exam Eye Exam: EOMI, Normal appearance, PERRL Pupil Exam: NORMAL ACCOMODATION - ENT Exam ENT Exam: Mucous Membranes Moist - Neck Exam Neck Exam: Full ROM - Respiratory Exam Respiratory Exam: NORMAL BREATHING PATTERN. absent: Wheezes - Cardiovascular Exam Cardiovascular Exam: +S1, +S2 - GI/Abdominal Exam GI & Abdominal Exam: Soft, Normal Bowel Sounds - Extremities Exam Extremities Exam: Full ROM, Normal Capillary Refill - Back Exam Back Exam: Full ROM - Neurological Exam Neurological Exam: Alert, Awake, CN II-XII Intact, Oriented x3 - Psychiatric Exam Psychiatric exam: Normal Affect, Normal Mood - Skin Skin Exam: Dry, Intact, Normal Color, Warm Assessment and Plan - Assessment and Plan (Free Text) Plan: (1) Chest pain, rule out acute myocardial infarction Assessment and Plan: EKG:Sinus tachy with premature supraventricular complexes noted Hx of coronary stent placement years ago (Pt could not quantify when) ASA 81 mg, Crestor 10 mg ROMIs negative x3 EKGS Echo (05/16/17): f/u official read Lipid Panel WNL Hgb A1c: 6.2 Thyroid studies WNL (2) ESRD on hemodialysis Assessment and Plan: ESRD typically on HD M,W,F . Had dialysis yesterday due to elevated electrolytes. Calcium Acetate 667 mg PO TID Consult to Nephrology Dr. Dueñas- F/U (3) DM type 2 (diabetes mellitus, type 2) Assessment and Plan: Accuchecks ISS Hgb A1c: 6.1, well controlled Had HD on 05/14 (4) Hypertension Assessment and Plan: Continue Home Meds at this time: Amlodipine, Coreg, Cozaar, Catapres Hold parameters for SBP under 110 Hydralazine 10 mg IVP Q6 PRN for SBP above 160 Continue to monitor BP Discussed the effects of life stressors on patient. (5) Prophylactic measure Assessment and Plan: Heparin SC Q12 PPI 40 mg daily SCDs
[2017-05-16] MEDS: (Novolog) Insulin Aspart, Recombinant 100 u/ml 10 ml vial SC SCH ×3 (08:23→18:54)
[2017-05-16 08:54] LABS: BASO # 0.1 K/uL (0.0-0.2); BASO % 2.2 % (0.0-2.0); EOS # 0.4 K/uL (0.0-0.7); EOS % 9.1 % (0.0-4.0); HEMATOCRIT 34.4 % (34.0-47.0); LYMPH # 1.4 K/uL (1.0-4.3); LYMPH % 33.2 % (20.0-40.0); MEAN CELL VOLUME 82.9 fL (81.0-99.0); MEAN CORPUSCULAR HEMOGLOBIN 26.6 pg (27.0-31.0); MEAN CORPUSCULAR HGB CONC 32.1 g/dL (33.0-37.0); MEAN PLATELET VOLUME 8.5 fL (7.2-11.7); MONO # 0.6 K/uL (0.0-0.8); MONO % 14.6 % (0.0-10.0); WHITE BLOOD COUNT 4.1 K/uL (4.8-10.8)
[2017-05-16 09:40] LABS: POTASSIUM 4.9 mmol/L (3.6-5.2)
[2017-05-16 09:42] LABS: BILIRUBIN,TOTAL 0.6 mg/dL (0.2-1.3)
[2017-05-16 09:43] LABS: ALB/GLOB RATIO 1.1 (1.0-2.1); PHOSPHOROUS 4.8 mg/dL (2.5-4.5); TOTAL PROTEIN 6.8 g/dL (6.3-8.3)
[2017-05-16 09:44] LABS: CALCIUM 8.2 mg/dl (8.6-10.4); MAGNESIUM 2.2 mg/dL (1.6-2.3)
[2017-05-16] MEDS: Pantoprazole 40 mg EC Tab PO SCH (09:58)
--- NOTE | 2017-05-16 13:42 | CP.PCM.PN ---
Subjective - Date & Time of Evaluation Date of Evaluation: 05/16/17 Time of Evaluation: 13:39 - Subjective Subjective: No CPs, no SOB,n, v, d, chills, HAs s/p echo- results pending BP controlled Labs acceptable For dialysis now- limit UF rate as BP drops post HD Objective - Vital Signs/Intake and Output Vital Signs (last 24 hours): Temp Pulse Resp BP Pulse Ox 98.1 F 59 L 20 155/69 H 97 05/16/17 07:10 05/16/17 07:10 05/16/17 07:10 05/16/17 07:10 05/16/17 07:10 - Medications Medications: Current Medications Amlodipine Besylate (Norvasc) 10 mg PO DAILY [facility] Last Admin: 05/15/17 11:50 Dose: Not Given Aspirin (Ecotrin) 81 mg PO DAILY [facility] Last Admin: 05/16/17 09:58 Dose: 81 mg Calcium Acetate (Phoslo) 667 mg PO TID [facility] Last Admin: 05/16/17 09:58 Dose: 667 mg Carvedilol (Coreg) 6.25 mg PO BID [facility] Last Admin: 05/16/17 09:58 Dose: 6.25 mg Cinacalcet (Sensipar) 30 mg PO DAILY [facility] Last Admin: 05/16/17 09:58 Dose: 30 mg Clonidine HCl (Catapres) 0.3 mg PO BID [facility] Last Admin: 05/16/17 09:57 Dose: 0.3 mg Heparin Sodium (Porcine) (Heparin) 5,000 units SC Q12 [facility] Last Admin: 05/16/17 09:57 Dose: 5,000 units Hydralazine HCl (Apresoline) 10 mg IVP Q6H PRN PRN Reason: Systolic Blood Pressure Insulin Aspart (Novolog) 0 unit SC ACHS [facility] PRN Reason: Protocol Last Admin: 05/16/17 12:13 Dose: 1 unit Oxcarbazepine (Trileptal) 150 mg PO DAILY [facility] Last Admin: 05/16/17 09:58 Dose: 150 mg Pantoprazole Sodium (Protonix Ec Tab) 40 mg PO DAILY [facility] Last Admin: 05/16/17 09:58 Dose: 40 mg Rosuvastatin Calcium (Crestor) 10 mg PO HS [facility] Last Admin: 05/15/17 22:22 Dose: 10 mg - Labs Labs: 05/16/17 08:27 05/16/17 08:27 PT 11.0 SECONDS (9.7-12.2) 05/15/17 07:37 INR 1.0 05/15/17 07:37 APTT 29 SECONDS (21-34) 05/15/17 07:37 - Constitutional Appears: No Acute Distress, Chronically Ill - Head Exam Head Exam: ATRAUMATIC, NORMAL INSPECTION - Eye Exam Eye Exam: EOMI, Normal appearance - Neck Exam Neck Exam: Normal Inspection. absent: Tenderness - Respiratory Exam Respiratory Exam: Clear to Ausculation Bilateral, NORMAL BREATHING PATTERN - Cardiovascular Exam Cardiovascular Exam: REGULAR RHYTHM, +S1 - GI/Abdominal Exam GI & Abdominal Exam: Soft. absent: Tenderness - Extremities Exam Extremities Exam: Normal Inspection. absent: Tenderness - Neurological Exam Neurological Exam: Alert, CN II-XII Intact - Skin Skin Exam: Dry, Warm Assessment and Plan (1) Type 2 diabetes mellitus with diabetic nephropathy Status: Acute (2) ESRD on hemodialysis Status: Chronic (3) CAD (coronary artery disease) Status: Acute (4) Chest pain of uncertain etiology Status: Acute - Assessment and Plan (Free Text) Plan: For dialysis now Check echo results Further cardiac workup as per medicine
[2017-05-16 18:53] VITALS: BP 174/70; RESP 20; TEMP 98.4; O2SAT 99
[2017-05-16 19:10] VITALS: PULSE 78
--- NOTE | 2017-05-16 19:56 | CP.PCM.DIS ---
Provider - Provider Date of Admission: 05/14/17 13:46 Attending physician: Justyna Reyez DO Primary care physician: Dr. Petra Alexander (PMD/Cardio) Dr. Reyez (Hospitalist) Consults: Nephrology: Spenser Time Spent in preparation of Discharge (in minutes): 45 Diagnosis - Discharge Diagnosis (1) Chest pain, rule out acute myocardial infarction Status: Acute Comment: Hx of coronary stent. SHAWNA negative x 3; EKG: no acute ST changes (2) ESRD (end stage renal disease) Status: Chronic Comment: Nephro: Dr. Dueñas consulted. MWF dialysis + for elevated K (3) Type 2 diabetes mellitus with diabetic nephropathy Status: Acute Comment: A1C: 6.2, adequate control for diabetic Hospital Course - Lab Results Lab Results: Most Recent Lab Values WBC 4.1 K/uL (4.8-10.8) L 05/16/17 08:27 RBC 4.14 Mil/uL (3.80-5.20) 05/16/17 08:27 Hgb 11.0 g/dL (11.0-16.0) 05/16/17 08:27 Hct 34.4 % (34.0-47.0) 05/16/17 08:27 MCV 82.9 fL (81.0-99.0) 05/16/17 08:27 MCH 26.6 pg (27.0-31.0) L 05/16/17 08:27 MCHC 32.1 g/dL (33.0-37.0) L 05/16/17 08:27 RDW 18.0 % (11.5-14.5) H 05/16/17 08:27 Plt Count 200 K/uL (130-400) 05/16/17 08:27 MPV 8.5 fL (7.2-11.7) 05/16/17 08:27 Neut % (Auto) 40.9 % (50.0-75.0) L 05/16/17 08:27 Lymph % (Auto) 33.2 % (20.0-40.0) 05/16/17 08:27 [place] % (Auto) 14.6 % (0.0-10.0) H 05/16/17 08:27 Eos % (Auto) 9.1 % (0.0-4.0) H 05/16/17 08:27 Baso % (Auto) 2.2 % (0.0-2.0) H 05/16/17 08:27 Neut # 1.7 K/uL (1.8-7.0) L 05/16/17 08:27 Lymph # 1.4 K/uL (1.0-4.3) 05/16/17 08:27 [place] # 0.6 K/uL (0.0-0.8) 05/16/17 08:27 Eos # 0.4 K/uL (0.0-0.7) 05/16/17 08:27 Baso # 0.1 K/uL (0.0-0.2) 05/16/17 08:27 PT 11.0 SECONDS (9.7-12.2) 05/15/17 07:37 INR 1.0 05/15/17 07:37 APTT 29 SECONDS (21-34) 05/15/17 07:37 Sodium 134 mmol/L (132-148) 05/16/17 08:27 Potassium 4.9 mmol/L (3.6-5.2) 05/16/17 08:27 Chloride 95 mmol/L (98-107) L 05/16/17 08:27 Carbon Dioxide 29 mmol/L (22-30) 05/16/17 08:27 Anion Gap 15 (10-20) 05/16/17 08:27 BUN 29 mg/dL (7-17) H 05/16/17 08:27 Creatinine 5.8 MG/DL (0.7-1.2) H 05/16/17 08:27 Est GFR ( Amer) 9 05/16/17 08:27 Est GFR (Non-Af Amer) 7 05/16/17 08:27 POC Glucose (mg/dL) 114 mg/dL (65-110) H 05/16/17 17:35 Random Glucose 131 mg/dL (65-105) H 05/16/17 08:27 Hemoglobin A1c 6.1 % (4.2-6.5) 05/15/17 07:37 Calcium 8.2 mg/dl (8.6-10.4) L 05/16/17 08:27 Phosphorus 4.8 mg/dL (2.5-4.5) H 05/16/17 08:27 Magnesium 2.2 mg/dL (1.6-2.3) 05/16/17 08:27 Total Bilirubin 0.6 mg/dL (0.2-1.3) 05/16/17 08:27 AST 35 U/L (14-36) 05/16/17 08:27 ALT 12 U/L (9-52) 05/16/17 08:27 Alkaline Phosphatase 112 U/L (38-126) 05/16/17 08:27 Total Creatine Kinase 68 U/L (30-135) 05/14/17 23:11 CK-MB (Mass) 2.44 ng/mL (0.0-3.38) 05/14/17 23:11 Troponin I 0.0470 ng/mL (0.00-0.120) 05/14/17 10:48 Troponin I, Quant 0.1150 ng/mL (0.00-0.120) 05/14/17 23:11 NT-Pro-B Natriuret Pep 52361 pg/mL (0-900) H 05/14/17 10:48 Total Protein 6.8 g/dL (6.3-8.3) 05/16/17 08:27 Albumin 3.5 g/dL (3.5-5.0) D 05/16/17 08:27 Globulin 3.3 gm/dL (2.2-3.9) 05/16/17 08:27 Albumin/Globulin Ratio 1.1 (1.0-2.1) 05/16/17 08:27 Triglycerides 66 mg/dL (0-149) 05/15/17 07:37 Cholesterol 148 mg/dL (0-199) 05/15/17 07:37 LDL Cholesterol Direct 62 mg/dL (0-129) 05/15/17 07:37 HDL Cholesterol 60 mg/dL (30-70) 05/15/17 07:37 Free T4 1.22 ng/dL (0.78-2.19) 05/15/17 07:37 TSH 3rd Generation 0.89 mIU/L (0.46-4.68) 05/15/17 07:37 - Hospital Course Hospital Course: On admission: 77 year old female with extensive PMHx significant for coronary stent placement , HTN, DM, ESRD on HD and CVA presents with chief complaint of chest pain earlier today while at dialysis. Patient states that she was at hemodialysis center when she passed out on the bed. Patient states that she was experiencing some chest pain at the time and was administered 4 baby aspirins . The pain was described as a sharp 9/10 pain without radiation. She denied associations with ambulation, respirations or body positions. EMS was called and patient was brought for evaluation. Patient states that she has never experienced such an occurrence. She states that her symptoms have now resolved. Patient now denies chest pain, palpitaitons, shortness of breath, vision changes, headaches, abdominal pain, nausea paresthesias at this time. Hospital course: Pt admitted on 05/14/17 for chest pain. EKG on presentation showed sinus tach w/ premature supraventricular complexes. SHAWNA panel negative x 3. Pt given 325mg ASA in field, 81mg daily. Chronic HTN controlled with Amlodipine, Coreg, Clonidine, over course. Chronic T2DM treated with insulin sliding scale over course. Pt was maintained on MWF dialysis schedule, with additional dialysis on due to high serum potassium, supervised by nephrology cosmetic sales consultant, Dr. Dueñas. ECHO showed moderate concentric LVH, EF was WNL. With no additional chest pain, pt was discharged on 05/16, after dialysis. - Date & Time of H&P Date of H&P: 05/14/17 Time of H&P: 14:10 Discharge Exam - Additional Findings Additional findings: - Constitutional Appears: Non-toxic, No Acute Distress - Head Exam Head Exam: ATRAUMATIC, NORMAL INSPECTION, NORMOCEPHALIC - Eye Exam Eye Exam: EOMI, Normal appearance, PERRL Pupil Exam: NORMAL ACCOMODATION - ENT Exam ENT Exam: Mucous Membranes Moist - Neck Exam Neck Exam: Full ROM - Respiratory Exam Respiratory Exam: NORMAL BREATHING PATTERN. absent: Wheezes - Cardiovascular Exam Cardiovascular Exam: +S1, +S2 - GI/Abdominal Exam GI & Abdominal Exam: Soft, Normal Bowel Sounds - Extremities Exam Extremities Exam: Full ROM, Normal Capillary Refill - Back Exam Back Exam: Full ROM - Neurological Exam Neurological Exam: Alert, Awake, CN II-XII Intact, Oriented x3 - Psychiatric Exam Psychiatric exam: Normal Affect, Normal Mood - Skin Skin Exam: Dry, Intact, Normal Color, Warm Discharge Plan - Follow Up Plan Condition: GOOD Disposition: HOME/ ROUTINE Instructions: Chest Pain (DC), Hemodialysis (DC), Renal Failure Diet (DC), Dialysis Diet (DC), End Stage Kidney Disease (DC) Additional Instructions: Patient is stable for discharge per Dr. Reyez. Patient may resume her home medications. She has not been prescribed any medications. Patient is make an appointment with her PMD/Pit Inspector Dr. Castellanos, within one week of discharge for follow-up. She should also make an appointment to follow up with specialist, Dr. Dueñas to continue evaluation of her end stage renal disease. She is advised to return to the emergency department if symptoms return or worsen. These instructions were given to the pt in [place]ian. Patient expressed verbal understanding of these instructions. Prescribed medications: NONE Referrals: Herson Dueñas MD [Staff Provider] - Liz Castellanos MD [Staff Provider] -
--- NOTE | 2017-05-17 09:45 | CARD ---
APPROVED REPORT EXAM: Two-dimensional and M-mode echocardiogram with Doppler and color Doppler. Other Information Quality : Rhythm : NSR INDICATION CAD Chest Pain Congestive Heart Failure RISK FACTORS Hypertension Hyperlipidemia Diabetes M-Mode DIMENSIONS RVDd2.50 (2.1-3.2cm)Left Atrium (MM)4.65 (2.5-4.0cm) IVSd1.48 (0.7-1.1cm)Aortic Root2.77 (2.2-3.7cm) LVDd5.15 (4.0-5.6cm)Aortic Cusp Exc.1.64 (1.5-2.0cm) PWd1.52 (0.7-1.1cm)FS (%) 38 % LVDs3.20 (2.0-3.8cm)LVEF (%)68 (>50%) Aortic Valve AoV Peak Wkxsdekb389.1cm/Margareth Peak GR.12mmHg Mitral Valve MV E Hpzjcrfz846.5cm/sMV A Uohavcoy13.2cm/sE/A ratio1.8 TDI E/Lateral E'0.0E/Medial E'0.0 Tricuspid Valve TR Peak Jdsxajsq112ts/sTR Peak Gr.79cbQnIPPZ72skXw LEFT VENTRICLE There is mild to moderate concentric left ventricular hypertrophy. Left ventricle systolic function is normal with Ejection Fraction of 65-70%. There is normal LV segmental wall motion. The left ventricular diastolic function is normal. No left ventricle thrombus noted on this study. RIGHT VENTRICLE The right ventricle is normal size. The right ventricular systolic function is normal. ATRIA The left atrium is mildly dilated. The right atrium size is normal. AORTIC VALVE The aortic valve is mildly to moderately sclerotic. The aortic valve is trileaflet. No aortic regurgitation is present. There is no aortic valvular stenosis. MITRAL VALVE Mitral annular calcification is mild to moderate. There is no evidence of mitral valve prolapse. There is no mitral valve stenosis. Mitral regurgitation is trace to mild. TRICUSPID VALVE The tricuspid valve is normal in structure. There is mild to moderate tricuspid regurgitation. Right ventricular systolic pressure is estimated at 50-60 mmHg. There is moderate pulmonary hypertension. There is no tricuspid valve prolapse or vegetation. There is no tricuspid valve stenosis. PULMONIC VALVE The pulmonic valve is not well visualized. There is trace pulmonic valvular regurgitation. GREAT VESSELS The aortic root is normal in size. The IVC is normal in size and collapses >50% with inspiration. PERICARDIAL EFFUSION There is no pericardial effusion. There is no pleural effusion. <Conclusion> There is mild to moderate concentric left ventricular hypertrophy. Left ventricle systolic function is normal with Ejection Fraction of 65-70%. The left ventricular diastolic function is normal. The right ventricular size and systolic function are normal. The left atrium is mildly dilated. The right atrium size is normal. Mitral regurgitation is trace to mild. There is mild to moderate tricuspid regurgitation. There is moderate pulmonary hypertension.
== END 2017-05-16 21:30 | disposition home or self-care (01) ==
LOC: C.ER 09:42 → C.9E 13:46 → C.6T 17:00
PROVIDERS: ADMIT Hospitalist; ATTEND Hospitalist
DX: E11.22 Type 2 diabetes mellitus with diabetic chronic kidney disease (principal); I13.11 Hypertensive heart and chronic kidney disease without heart failure, with stage 5 chronic kidney disease, or end stage renal disease; N18.6 End stage renal disease; Z79.4 Long term (current) use of insulin; I25.10 Atherosclerotic heart disease of native coronary artery without angina pectoris
CPT/HCPCS: 36415; 71010; 80053; 80061; 82550; 82553; 82948; 83036; 83735; 83880; 84100; 84439; 84443; 84484; 85025; 85610; 85730; 93005; 93306; 96372; 99285; G0257; G0378; J1644

== ENCOUNTER 2017-05-26 08:57 | Inpatient (IN) | payer MEDICARE, OTHER ==
[2017-05-26 08:57] VITALS: BMI 25.0
--- NOTE | 2017-05-26 09:55 | C.PDOC ---
History Of Present Illness 77 y/o F c PMHx DM, CAD s/p stent, ESRD on HD MWF, presents to the emergency department with complaints of chest pain, shortness of breath and nausea. Patient went to normally scheduled dialysis this morning and completed one hour , after which shedeveloped these symptoms, which lasted for a few seconds.. In ED, patient states she feels well and is hungry. Denies abdominal pain, fevers, palpitations, bleeding or black stool. Patient noted to be in atrial fibrillation by EMS, which she denies a Hx of. Time Seen by Provider: 05/26/17 09:32 Chief Complaint (Nursing): Shortness Of Breath Past Medical History Vital Signs: Last Vital Signs Temp 97.8 F 05/26/17 09:09 Pulse 63 05/26/17 14:50 Resp 20 05/26/17 14:50 BP 149/61 05/26/17 14:50 Pulse Ox 100 05/26/17 14:50 - Medical History PMH: Anemia, Asthma, CAD, Diabetes, HTN, Hypothyroidism, End Stage Renal Disease (3 x a week -w-), Chronic Kidney Disease Denies: Kidney Stones Surgical History: Coronary Stent - [facility] Procedures ASPIRATION SKIN & SUBQ (04/23/14) EXCISION OF RIGHT LOBE LIVER, PERCUTANEOUS APPROACH, DIAGN (04/01/16) FLUOROSCOPY OF GALLBLADDER & BILE DUCT USING L OSM CONTRAST (04/01/16) HEMODIALYSIS (02/17/15) PERFORMANCE OF URINARY FILTRATION, SINGLE (09/02/16) RESECTION OF GALLBLADDER, PERCUTANEOUS ENDOSCOPIC APPROACH (04/01/16) Family History: States: Unknown Family Hx - Social History Hx Tobacco Use: No Hx Alcohol Use: No Hx Substance Use: No - Immunization History Hx Tetanus Toxoid Vaccination: No Hx Influenza Vaccination: No Hx Pneumococcal Vaccination: No Review Of Systems Except As Marked, All Systems Reviewed And Found Negative. Constitutional: Negative for: Fever Cardiovascular: Positive for: Chest Pain Respiratory: Positive for: Shortness of Breath. Negative for: Cough Gastrointestinal: Positive for: Nausea. Negative for: Vomiting, Abdominal Pain Musculoskeletal: Negative for: Back Pain Skin: Negative for: Rash Neurological: Negative for: Weakness, Numbness, Headache, Dizziness Physical Exam - Physical Exam Additional Physical Exam Comments: Constitutional: No acute distress. Head: Normocephalic. Atraumatic. Eyes: PERRL. EOMI ENT: Moist mucous membranes. Neck: Supple. Cardiovascular: Irregularly irregular. Radial pulses 2+ bilaterally. Chest: No tenderness. Respiratory: Clear to auscultation bilaterally. GI: Soft. Nontender. Nondistended. Back: No CVA tenderness. No midline tenderness. Musculoskeletal: No tenderness or swelling of extremities. Skin: No rash. Neurologic: Alert, no focal deficit. ED Course And Treatment - Laboratory Results Result Diagrams: 05/26/17 10:01 05/26/17 10:01 O2 Sat by Pulse Oximetry: 100 Medical Decision Making Medical Decision Making: Plan: * EKG * Labs * Chest X-Ray * Aspirin * Reassess and Disposition EKG Rate 105bpm Rhythm Atrial Fibrillation Interpret: PVCs. No ST elevations. CXR no acute disease. Dr. Dueñas accepts consult for nephrology. Dr. Cesar Garcia accepts patient to medical service. Disposition - Disposition Disposition: HOSPITALIZED Disposition Time: 11:50 Condition: FAIR - Clinical Impression Clinical Impression: New onset atrial fibrillation - PA / LIFE TRAINER / Resident Statement MD/DO has reviewed & agrees with the documentation as recorded. - Scribe Statement The provider has reviewed the documentation as recorded by the Scribe (Darlin De León) All medical record entries made by the Scribe were at my direction and personally dictated by me. I have reviewed the chart and agree that the record accurately reflects my personal performance of the history, physical exam, medical decision making, and the department course for this patient. I have also personally directed, reviewed, and agree with the discharge instructions and disposition.
[2017-05-26 10:13] LABS: BASO # 0.1 K/uL (0.0-0.2); BASO % 1.3 % (0.0-2.0); EOS # 0.3 K/uL (0.0-0.7); EOS % 5.6 % (0.0-4.0); HEMATOCRIT 34.5 % (34.0-47.0); INR 0.9; LYMPH # 1.1 K/uL (1.0-4.3); LYMPH % 20.1 % (20.0-40.0); MEAN CORPUSCULAR HEMOGLOBIN 26.6 pg (27.0-31.0); MEAN CORPUSCULAR HGB CONC 32.8 g/dL (33.0-37.0); MEAN PLATELET VOLUME 9.2 fL (7.2-11.7); MONO # 0.7 K/uL (0.0-0.8); MONO % 12.4 % (0.0-10.0); RED CELL DISTRIBUTION WIDTH 16.9 % (11.5-14.5); WHITE BLOOD COUNT 5.6 K/uL (4.8-10.8)
[2017-05-26 10:31] LABS: POTASSIUM 3.4 mmol/L (3.6-5.2)
[2017-05-26 10:33] LABS: BILIRUBIN,TOTAL 0.8 mg/dL (0.2-1.3)
[2017-05-26 10:34] LABS: ALB/GLOB RATIO 1.1 (1.0-2.1); CALCIUM 8.6 mg/dl (8.6-10.4); TOTAL PROTEIN 7.2 g/dL (6.3-8.3)
[2017-05-26 10:45] LABS: TROPONIN I 0.047 ng/mL (0.00-0.120)
--- NOTE | 2017-05-26 11:35 | RAD ---
HISTORY: new onset afib COMPARISON: 05/14/2017 FINDINGS: LUNGS: Mild venous congestion. Patchy left basilar airspace opacity with question trace left pleural effusion. Bilateral hilar prominence. PLEURA: No significant pleural effusion identified, no pneumothorax apparent. CARDIOVASCULAR: Mild cardiomegaly. OSSEOUS STRUCTURES: No significant abnormalities. VISUALIZED UPPER ABDOMEN: Normal. OTHER FINDINGS: Right axillary stent in place. IMPRESSION: Mild venous congestion. Patchy left basilar airspace opacity with question trace left pleural effusion. Bilateral hilar prominence.
--- NOTE | 2017-05-26 13:14 | CP.PCM.CON ---
History of Present Illness - History of Present Illness History of Present Illness: 77 y/o F c PMHx DM, CAD s/p stent, ESRD on HD MWF, presents to the emergency department with complaints of chest pain, shortness of breath and nausea. Patient went to normally scheduled dialysis this morning and completed one hour , after which shedeveloped these symptoms, which lasted for a few seconds.. In ED, patient states she feels well and is hungry. Denies abdominal pain, fevers, palpitations, bleeding or black stool. Patient noted to be in atrial fibrillation by EMS, which she denies a Hx of. PMH: ESRD DIABETIC NEPHROPATHY CAD CHF EPISODES PSH: CARDIAC STENT AVF CONSULT DICTATED ADMITTED FOR NEW ONSET AFIB Past Patient History - Infectious Disease Hx of Infectious Diseases: None - Tetanus Immunizations Tetanus Immunization: Unknown - Past Medical History & Family History Past Medical History?: Yes - Past Social History Smoking Status: Never Smoked - CARDIAC Hx Hypertension: Yes - PULMONARY Hx Asthma: Yes - NEUROLOGICAL Hx Neurological Disorder: No - HEENT Hx HEENT Problems: Yes Other/Comment: wear eyeglasses - RENAL Hx Chronic Kidney Disease: Yes Hx Kidney Stones: No - ENDOCRINE/METABOLIC Hx Hypothyroidism: Yes - HEMATOLOGICAL/ONCOLOGICAL Hx Anemia: Yes - INTEGUMENTARY Hx Dermatological Problems: No - MUSCULOSKELETAL/RHEUMATOLOGICAL Hx Musculoskeletal Disorders: No Hx Falls: No - GASTROINTESTINAL Hx Gastrointestinal Disorders: No - GENITOURINARY/GYNECOLOGICAL Hx Genitourinary Disorders: No - PSYCHIATRIC Hx Substance Use: No - SURGICAL HISTORY Hx Coronary Stent: Yes - ANESTHESIA Hx Anesthesia: Yes Hx Anesthesia Reactions: No Hx Malignant Hyperthermia: No Meds Allergies/Adverse Reactions: Allergies Allergy/AdvReac Type Severity Reaction Status Date / Time No Known Allergies Allergy Verified 05/26/17 09:13 Results - Vital Signs Recent Vital Signs: Last Vital Signs Temp 97.8 F 05/26/17 09:09 Pulse 65 05/26/17 12:40 Resp 20 05/26/17 12:40 BP 144/59 L 05/26/17 12:40 Pulse Ox 97 05/26/17 12:40 - Labs Result Diagrams: 05/26/17 10:01 05/26/17 10:01 Labs: Laboratory Results - last 24 hr 05/26/17 05/26/17 05/26/17 10:01 10:01 10:01 WBC 5.6 RBC 4.26 Hgb 11.3 Hct 34.5 MCV 81.0 MCH 26.6 L MCHC 32.8 L RDW 16.9 H Plt Count 238 MPV 9.2 Neut % (Auto) 60.6 Lymph % (Auto) 20.1 [place] % (Auto) 12.4 H Eos % (Auto) 5.6 H Baso % (Auto) 1.3 Neut # 3.4 Lymph # 1.1 [place] # 0.7 Eos # 0.3 Baso # 0.1 PT 10.6 INR 0.9 APTT 29 Sodium 133 Potassium 3.4 L Chloride 88 L Carbon Dioxide 32 H Anion Gap 16 BUN 38 H Creatinine 5.4 H Est GFR ( Amer) 9 Est GFR (Non-Af Amer) 8 Random Glucose 122 H Calcium 8.6 Total Bilirubin 0.8 AST 35 ALT 20 Alkaline Phosphatase 159 H D Total Creatine Kinase 99 CK-MB (Mass) 2.27 Troponin I 0.0470 Total Protein 7.2 Albumin 3.9 Globulin 3.4 Albumin/Globulin Ratio 1.1 Lipase 132
--- NOTE | 2017-05-26 17:02 | CON ---
DATE: 05/26/2017 The patient is a 77-year-old woman with end-stage renal disease. The patient had di alysis today for approximately 2 hours, when she had some chest pain. She was found to be tachycardi c and in atrial fibrillation. This is a new onset atrial fibrillation. Was sent to the Emergency De partment. She is being admitted for new onset atrial fibrillation. PAST MEDICAL HISTORY: She has past medical history of end-stage renal disease, diabetic nephropathy, coronary artery disease, and has had recent congestive heart failure episode. PAST SURGICAL HISTORY: Cardiac stent placement, AV fistula placement. SOCIAL HISTORY: Negative for smoking, alcohol abuse, illicit drug use. FAMILY HISTORY: Significant for son on maintenance hemodialysis. REVIEW OF SYSTEMS: She was well recently, but did have dyspnea on exertion a few weeks ago, which duckworth s improved with improvement with dialysis, fluid removal. She has had no chest pain except for today . She has no new rashes. No nausea, vomiting, diarrhea. No visual disturbance, hearing deficits. Other review of systems are all negative. MEDICATIONS: Include antihyperglycemic medication, a blood pressure medication, and aspirin 325 vinicio y, and PhosLo 1 tablet t.i.d. The patient cannot remember the names for medications. PHYSICAL EXAMINATION: GENERAL: She is a well-developed female in no acute distress. VITAL SIGNS: Blood pressure 144/59, temperature 97.8, pulse now is 72 at bedside, and rhythm is regu lar. Pulse ox 97% on room air. HEENT: Anicteric. Mouth was clear. NECK: No JVD. LUNGS: Lung alejandro were clear. HEART: Regular rhythm, no murmur. ABDOMEN: Soft, benign. No mass or organomegaly. EXTREMITIES: No peripheral edema. She has a left upper extremity AV fistula with a thrill and a bru it. NEUROLOGIC: No focal deficits. LABORATORY DATA: Blood work shows hemoglobin 11.3, potassium 3.4. That is post-dialysis. Creatinin e 5.4. Troponin is normal. IMPRESSION: New onset atrial fibrillation, coronary artery disease, history of congestive heart fail ure, end-stage renal disease. PLAN: Would be workup for new onset atrial fibrillation as per cardiology. Will have dialysis done Friday, Friday, Friday. Will follow up. Herson Dueñas MD cc: [id number] TT: 05/26/2017 17:01:50 Confirmation # [id number] Dictation # [id number] dn
--- NOTE | 2017-05-26 19:30 | CP.PCM.HP ---
Past Patient History - Infectious Disease Hx of Infectious Diseases: None - Tetanus Immunizations Tetanus Immunization: Unknown - Past Medical History & Family History Past Medical History?: Yes - Past Social History Smoking Status: Never Smoked - CARDIAC Hx Cardiac Disorders: Yes Hx Hypertension: Yes - PULMONARY Hx Respiratory Disorders: Yes Hx Asthma: Yes - NEUROLOGICAL Hx Neurological Disorder: No - HEENT Hx HEENT Problems: Yes Other/Comment: wear eyeglasses - RENAL Hx Chronic Kidney Disease: Yes Date of Last Dialysis Treatment: 05/14/17 Hx Kidney Stones: No - ENDOCRINE/METABOLIC Hx Endocrine Disorders: Yes Hx Hypothyroidism: Yes - HEMATOLOGICAL/ONCOLOGICAL Hx Blood Disorders: Yes Hx Anemia: Yes - INTEGUMENTARY Hx Dermatological Problems: No - MUSCULOSKELETAL/RHEUMATOLOGICAL Hx Musculoskeletal Disorders: No Hx Falls: No - GASTROINTESTINAL Hx Gastrointestinal Disorders: No - GENITOURINARY/GYNECOLOGICAL Hx Genitourinary Disorders: No - PSYCHIATRIC Hx Psychophysiologic Disorder: No Hx Substance Use: No - SURGICAL HISTORY Hx Surgeries: Yes Hx Coronary Stent: Yes - ANESTHESIA Hx Anesthesia: Yes Hx Anesthesia Reactions: No Hx Malignant Hyperthermia: No Meds Allergies/Adverse Reactions: Allergies Allergy/AdvReac Type Severity Reaction Status Date / Time No Known Allergies Allergy Verified 05/26/17 09:13 Results - Vital Signs Recent Vital Signs: Last Vital Signs Temp 98.6 F 05/26/17 17:15 Pulse 66 05/26/17 17:15 Resp 20 05/26/17 17:15 BP 159/64 H 05/26/17 16:17 Pulse Ox 100 05/26/17 17:15 - Labs Result Diagrams: 05/26/17 10:01 05/26/17 10:01 Labs: Laboratory Results - last 24 hr 05/26/17 17:28 POC Glucose (mg/dL) 169 H Assessment & Plan - Assessment and Plan (Free Text) Plan: protonix elquis dr.cooper dr.voudourous mccray same as ordered prpotoonix home emd reconciliation as ordered
[2017-05-26] MEDS: (Novolog) Insulin Aspart, Recombinant 100 u/ml 10 ml vial SC SCH (22:04)
[2017-05-27] MEDS: (Novolog) Insulin Aspart, Recombinant 100 u/ml 10 ml vial SC SCH ×4 (07:58→21:57)
[2017-05-27] MEDS: Pantoprazole 40 mg EC Tab PO SCH (09:47)
--- NOTE | 2017-05-27 10:54 | CP.PCM.PN ---
Subjective - Date & Time of Evaluation Date of Evaluation: 05/27/17 Time of Evaluation: 10:52 - Subjective Subjective: seen and examined feels well, new onset a fib, rate controlled Objective - Vital Signs/Intake and Output Vital Signs (last 24 hours): Temp Pulse Resp BP Pulse Ox 97.7 F 60 18 145/70 97 05/27/17 07:20 05/27/17 10:21 05/27/17 07:20 05/27/17 10:21 05/27/17 07:20 Intake and Output: 05/27/17 05/27/17 06:59 18:59 Intake Total 10 Balance 10 - Medications Medications: Current Medications Amlodipine Besylate (Norvasc) 10 mg PO DAILY [facility] Last Admin: 05/27/17 10:22 Dose: 10 mg Apixaban (Eliquis) 2.5 mg PO BID [facility] Last Admin: 05/27/17 09:47 Dose: 2.5 mg Aspirin (Ecotrin) 81 mg PO DAILY [facility] Last Admin: 05/27/17 09:47 Dose: 81 mg Calcium Acetate (Phoslo) 667 mg PO DAILY [facility] Last Admin: 05/27/17 09:47 Dose: 667 mg Carvedilol (Coreg) 3.125 mg PO Q12 [facility] Last Admin: 05/27/17 09:29 Dose: Not Given Cinacalcet (Sensipar) 30 mg PO DAILY [facility] Last Admin: 05/27/17 09:47 Dose: 30 mg Clonidine HCl (Catapres) 0.3 mg PO BID [facility] Last Admin: 05/27/17 09:28 Dose: Not Given Insulin Aspart (Novolog) 0 unit SC [facility] PRN Reason: Protocol Last Admin: 05/27/17 07:58 Dose: Not Given Losartan Potassium (Cozaar) 150 mg PO DAILY [facility] Last Admin: 05/27/17 10:22 Dose: 150 mg Pantoprazole Sodium (Protonix Ec Tab) 40 mg PO DAILY [facility] Last Admin: 05/27/17 09:47 Dose: 40 mg Rosuvastatin Calcium (Crestor) 10 mg PO HS [facility] Last Admin: 05/26/17 21:22 Dose: 10 mg - Labs Labs: PT 10.6 SECONDS (9.7-12.2) 05/26/17 10:01 INR 0.9 05/26/17 10:01 APTT 29 SECONDS (21-34) 05/26/17 10:01 - Constitutional Appears: Non-toxic, No Acute Distress, Chronically Ill - Head Exam Head Exam: NORMAL INSPECTION - Eye Exam Eye Exam: Normal appearance - ENT Exam ENT Exam: Mucous Membranes Moist, Normal Exam - Neck Exam Neck Exam: Normal Inspection - Respiratory Exam Respiratory Exam: Clear to Ausculation Bilateral - Cardiovascular Exam Cardiovascular Exam: REGULAR RHYTHM, RRR - GI/Abdominal Exam GI & Abdominal Exam: Distended, Soft, Normal Bowel Sounds - Extremities Exam Extremities Exam: Normal Inspection Assessment and Plan (1) New onset atrial fibrillation Status: Acute (2) Anemia of renal disease Status: Acute (3) CAD (coronary artery disease) Status: Acute (4) ESRD (end stage renal disease) on dialysis Status: Acute (5) Hypertensive urgency Status: Acute - Assessment and Plan (Free Text) Assessment: hd tomorrow and mwf bp improved cardiac work up
--- NOTE | 2017-05-27 11:13 | CP.PCM.CON ---
History of Present Illness - History of Present Illness History of Present Illness: Consult Note for Dr. Terrazas Reason for Consult: New Onset A-fib 77 y/o F with PMH of CAD s/p stent placement, HTN, DM, ESRD, and CVA presented to the hospital on 05/26/17 for chest pain and shortness of breath. The patient was undergoing dialysis when she acutely became short of breath and began experiencing chest pain. The pain was substernal and intense. The patient denied any radiation of pain. Pt immediately stopped dialysis and was brought to the hospital. Pt states she had a similar episode 2 weeks ago in which she was brought to the hospital and stayed for several days. On admission, EKG showed A-fib with RVR. This morning, patient is no longer in A-fib on the monitor. Pt states she feels fine with no complaints. Denies CP, SOB, N/V/D. PMH: CAD s/p stent placement, HTN, DM, ESRD, and CVA PSH: AV fistula, AV graft, coronary stent, cholecystectomy FMH: DM Social Hx: Denies alcohol, tobacco, or illicit drug use Allergies: NKDA Medications: See MAR Review of Systems - Constitutional Constitutional: Fatigue. absent: Fever - EENT Eyes: absent: Blurred Vision, Change in Vision - Cardiovascular Cardiovascular: Chest Pain, Irregular Heart Rhythm - Respiratory Respiratory: Dyspnea. absent: Cough - Gastrointestinal Gastrointestinal: absent: Abdominal Pain, Diarrhea, Vomiting - Genitourinary Genitourinary: absent: Dysuria, Hematuria - Integumentary Integumentary: absent: New Lesions, Rash - Neurological Neurological: absent: Numbness, Syncope, Tingling Past Patient History - Infectious Disease Hx of Infectious Diseases: None - Tetanus Immunizations Tetanus Immunization: Unknown - Past Medical History & Family History Past Medical History?: Yes - Past Social History Smoking Status: Never Smoked - CARDIAC Hx Cardiac Disorders: Yes Hx Hypertension: Yes - PULMONARY Hx Respiratory Disorders: Yes Hx Asthma: Yes - NEUROLOGICAL Hx Neurological Disorder: No - HEENT Hx HEENT Problems: Yes Other/Comment: wear eyeglasses - RENAL Hx Chronic Kidney Disease: Yes Date of Last Dialysis Treatment: 05/14/17 Hx Kidney Stones: No - ENDOCRINE/METABOLIC Hx Endocrine Disorders: Yes Hx Hypothyroidism: Yes - HEMATOLOGICAL/ONCOLOGICAL Hx Blood Disorders: Yes Hx Anemia: Yes - INTEGUMENTARY Hx Dermatological Problems: No - MUSCULOSKELETAL/RHEUMATOLOGICAL Hx Musculoskeletal Disorders: No Hx Falls: No - GASTROINTESTINAL Hx Gastrointestinal Disorders: No - GENITOURINARY/GYNECOLOGICAL Hx Genitourinary Disorders: No - PSYCHIATRIC Hx Psychophysiologic Disorder: No Hx Substance Use: No - SURGICAL HISTORY Hx Surgeries: Yes Hx Coronary Stent: Yes - ANESTHESIA Hx Anesthesia: Yes Hx Anesthesia Reactions: No Hx Malignant Hyperthermia: No Meds Allergies/Adverse Reactions: Allergies Allergy/AdvReac Type Severity Reaction Status Date / Time No Known Allergies Allergy Verified 05/26/17 09:13 - Medications Medications: Current Medications Amlodipine Besylate (Norvasc) 10 mg PO DAILY [facility] Last Admin: 05/27/17 10:22 Dose: 10 mg Apixaban (Eliquis) 2.5 mg PO BID [facility] Last Admin: 05/27/17 09:47 Dose: 2.5 mg Aspirin (Ecotrin) 81 mg PO DAILY [facility] Last Admin: 05/27/17 09:47 Dose: 81 mg Calcium Acetate (Phoslo) 667 mg PO DAILY [facility] Last Admin: 05/27/17 09:47 Dose: 667 mg Carvedilol (Coreg) 3.125 mg PO Q12 [facility] Last Admin: 05/27/17 09:29 Dose: Not Given Cinacalcet (Sensipar) 30 mg PO DAILY [facility] Last Admin: 05/27/17 09:47 Dose: 30 mg Clonidine HCl (Catapres) 0.3 mg PO BID [facility] Last Admin: 05/27/17 09:28 Dose: Not Given Insulin Aspart (Novolog) 0 unit SC ACHS [facility] PRN Reason: Protocol Last Admin: 05/27/17 07:58 Dose: Not Given Losartan Potassium (Cozaar) 150 mg PO DAILY [facility] Last Admin: 05/27/17 10:22 Dose: 150 mg Pantoprazole Sodium (Protonix Ec Tab) 40 mg PO DAILY [facility] Last Admin: 05/27/17 09:47 Dose: 40 mg Rosuvastatin Calcium (Crestor) 10 mg PO HS [facility] Last Admin: 05/26/17 21:22 Dose: 10 mg Physical Exam - Constitutional Appears: Well, No Acute Distress - Head Exam Head Exam: ATRAUMATIC, NORMAL INSPECTION, NORMOCEPHALIC - ENT Exam ENT Exam: Mucous Membranes Moist - Respiratory Exam Respiratory Exam: Clear to Auscultation Bilateral, NORMAL BREATHING PATTERN - Cardiovascular Exam Cardiovascular Exam: RRR, +S1, +S2 - GI/Abdominal Exam GI & Abdominal Exam: Normal Bowel Sounds, Soft. absent: Tenderness - Extremities Exam Extremities exam: Positive for: normal inspection. Negative for: calf tenderness, pedal edema - Neurological Exam Neurological exam: Alert, Oriented x3 - Skin Skin Exam: Intact, Normal Color, Warm Results - Vital Signs Recent Vital Signs: Last Vital Signs Temp 97.7 F 05/27/17 07:20 Pulse 60 05/27/17 10:21 Resp 18 05/27/17 07:20 BP 145/70 05/27/17 10:21 Pulse Ox 97 05/27/17 07:20 - Labs Result Diagrams: 05/28/17 07:16 05/28/17 07:16 Labs: Laboratory Results - last 24 hr 05/26/17 05/26/17 05/27/17 17:28 21:14 06:38 POC Glucose (mg/dL) 169 H 158 H 106 Assessment & Plan (1) New onset atrial fibrillation Assessment and Plan: Pt now in sinus rhythm No further intervention needed at this time Pt is clear for discharge from cardiology perspective Status: Acute
--- NOTE | 2017-05-27 12:43 | CARD ---
APPROVED REPORT EKG Measurement Heart [id number] <Conclusion> Atrial fibrillation with rapid ventricular response with premature ventricular or aberrantly conducted complexes Cannot rule out Inferior infarct, age undetermined Abnormal ECG
--- NOTE | 2017-05-27 14:37 | CP.PCM.PN ---
Subjective - Date & Time of Evaluation Date of Evaluation: 05/27/17 Time of Evaluation: 13:00 - Subjective Subjective: clinically same Objective - Vital Signs/Intake and Output Vital Signs (last 24 hours): Temp Pulse Resp BP Pulse Ox 98.1 F 67 18 163/70 H 95 05/27/17 13:41 05/27/17 13:41 05/27/17 13:41 05/27/17 13:41 05/27/17 13:41 Intake and Output: 05/27/17 05/27/17 06:59 18:59 Intake Total 10 Balance 10 - Medications Medications: Current Medications Amlodipine Besylate (Norvasc) 10 mg PO DAILY [facility] Last Admin: 05/27/17 10:22 Dose: 10 mg Apixaban (Eliquis) 2.5 mg PO BID [facility] Last Admin: 05/27/17 09:47 Dose: 2.5 mg Aspirin (Ecotrin) 81 mg PO DAILY [facility] Last Admin: 05/27/17 09:47 Dose: 81 mg Calcium Acetate (Phoslo) 667 mg PO DAILY [facility] Last Admin: 05/27/17 09:47 Dose: 667 mg Carvedilol (Coreg) 3.125 mg PO Q12 [facility] Last Admin: 05/27/17 09:29 Dose: Not Given Cinacalcet (Sensipar) 30 mg PO DAILY [facility] Last Admin: 05/27/17 09:47 Dose: 30 mg Clonidine HCl (Catapres) 0.3 mg PO BID [facility] Last Admin: 05/27/17 09:28 Dose: Not Given Insulin Aspart (Novolog) 0 unit SC ACHS [facility] PRN Reason: Protocol Last Admin: 05/27/17 13:27 Dose: 3 unit Losartan Potassium (Cozaar) 150 mg PO DAILY [facility] Last Admin: 05/27/17 10:22 Dose: 150 mg Pantoprazole Sodium (Protonix Ec Tab) 40 mg PO DAILY [facility] Last Admin: 05/27/17 09:47 Dose: 40 mg Rosuvastatin Calcium (Crestor) 10 mg PO HS [facility] Last Admin: 05/26/17 21:22 Dose: 10 mg - Labs Labs: PT 10.6 SECONDS (9.7-12.2) 05/26/17 10:01 INR 0.9 05/26/17 10:01 APTT 29 SECONDS (21-34) 05/26/17 10:01 - Constitutional Appears: Well - Head Exam Head Exam: ATRAUMATIC, NORMAL INSPECTION, NORMOCEPHALIC - Eye Exam Eye Exam: EOMI, Normal appearance, PERRL Pupil Exam: NORMAL ACCOMODATION, PERRL - ENT Exam ENT Exam: Mucous Membranes Moist, Normal Exam - Neck Exam Neck Exam: Full ROM, Normal Inspection. absent: Lymphadenopathy - Respiratory Exam Respiratory Exam: Decreased Breath Sounds - Cardiovascular Exam Cardiovascular Exam: REGULAR RHYTHM, +S1, +S2 - GI/Abdominal Exam GI & Abdominal Exam: Soft, Diminished Bowel Sounds - Rectal Exam Rectal Exam: Deferred
[2017-05-28 07:38] LABS: BASO # 0.1 K/uL (0.0-0.2); BASO % 1.1 % (0.0-2.0); EOS # 0.6 K/uL (0.0-0.7); EOS % 8.5 % (0.0-4.0); HEMATOCRIT 33.1 % (34.0-47.0); LYMPH # 1.5 K/uL (1.0-4.3); LYMPH % 21.3 % (20.0-40.0); MEAN CELL VOLUME 80.4 fL (81.0-99.0); MEAN CORPUSCULAR HEMOGLOBIN 25.9 pg (27.0-31.0); MEAN CORPUSCULAR HGB CONC 32.2 g/dL (33.0-37.0); MONO # 0.7 K/uL (0.0-0.8); MONO % 9.8 % (0.0-10.0); NRBC % 0.1 % (0.0-2.0); RED CELL DISTRIBUTION WIDTH 16.7 % (11.5-14.5); WHITE BLOOD COUNT 7.1 K/uL (4.8-10.8)
[2017-05-28] MEDS: (Novolog) Insulin Aspart, Recombinant 100 u/ml 10 ml vial SC SCH ×4 (07:51→22:00)
[2017-05-28 08:06] LABS: POTASSIUM 5.3 mmol/L (3.6-5.2)
[2017-05-28 08:08] LABS: BILIRUBIN,TOTAL 0.6 mg/dL (0.2-1.3); TOTAL PROTEIN 6.9 g/dL (6.3-8.3)
[2017-05-28 08:09] LABS: CALCIUM 8.4 mg/dl (8.6-10.4)
[2017-05-28] MEDS: Pantoprazole 40 mg EC Tab PO SCH (14:19)
--- NOTE | 2017-05-28 14:33 | CP.PCM.PN ---
Subjective - Date & Time of Evaluation Date of Evaluation: 05/28/17 Time of Evaluation: 14:31 - Subjective Subjective: Had run of AFib again Stable dialysis today; UF 2000ml HTN still elevated not dyspneic Objective - Vital Signs/Intake and Output Vital Signs (last 24 hours): Temp Pulse Resp BP Pulse Ox 98.6 F 68 18 181/75 H 99 05/28/17 13:50 05/28/17 13:50 05/28/17 13:50 05/28/17 13:50 05/28/17 13:50 - Medications Medications: Current Medications Amlodipine Besylate (Norvasc) 10 mg PO DAILY [facility] Last Admin: 05/28/17 14:19 Dose: 10 mg Apixaban (Eliquis) 2.5 mg PO BID [facility] Last Admin: 05/28/17 14:17 Dose: 2.5 mg Aspirin (Ecotrin) 81 mg PO DAILY [facility] Last Admin: 05/28/17 14:17 Dose: 81 mg Calcium Acetate (Phoslo) 667 mg PO DAILY [facility] Last Admin: 05/28/17 14:18 Dose: 667 mg Carvedilol (Coreg) 3.125 mg PO DAILY [facility] Last Admin: 05/28/17 14:19 Dose: 3.125 mg Cinacalcet (Sensipar) 30 mg PO DAILY [facility] Last Admin: 05/28/17 14:18 Dose: 30 mg Clonidine HCl (Catapres) 0.3 mg PO BID [facility] Last Admin: 05/28/17 11:00 Dose: Not Given Insulin Aspart (Novolog) 0 unit SC ACHS [facility] PRN Reason: Protocol Last Admin: 05/28/17 13:51 Dose: 1 unit Losartan Potassium (Cozaar) 150 mg PO DAILY [facility] Last Admin: 05/28/17 14:18 Dose: 150 mg Pantoprazole Sodium (Protonix Ec Tab) 40 mg PO DAILY [facility] Last Admin: 05/28/17 14:19 Dose: 40 mg Rosuvastatin Calcium (Crestor) 10 mg PO HS [facility] Last Admin: 05/27/17 21:29 Dose: 10 mg - Labs Labs: 05/28/17 07:16 05/28/17 07:16 PT 10.6 SECONDS (9.7-12.2) 05/26/17 10:01 INR 0.9 05/26/17 10:01 APTT 29 SECONDS (21-34) 05/26/17 10:01 - Constitutional Appears: No Acute Distress, Chronically Ill - Head Exam Head Exam: ATRAUMATIC, NORMAL INSPECTION - Eye Exam Eye Exam: EOMI, Normal appearance - Respiratory Exam Respiratory Exam: Clear to Ausculation Bilateral, NORMAL BREATHING PATTERN - Cardiovascular Exam Cardiovascular Exam: REGULAR RHYTHM, +S1 - GI/Abdominal Exam GI & Abdominal Exam: Soft. absent: Tenderness - Extremities Exam Extremities Exam: Normal Inspection. absent: Tenderness - Neurological Exam Neurological Exam: Alert, CN II-XII Intact - Skin Skin Exam: Dry, Warm Assessment and Plan (1) New onset atrial fibrillation Status: Acute (2) CAD (coronary artery disease) Status: Acute (3) Type 2 diabetes mellitus with diabetic nephropathy Status: Acute (4) ESRD (end stage renal disease) on dialysis Status: Acute - Assessment and Plan (Free Text) Plan: Increase carvedilol dose Monitor AFib
--- NOTE | 2017-05-28 15:07 | CP.PCM.PN ---
Subjective - Date & Time of Evaluation Date of Evaluation: 05/28/17 Time of Evaluation: 15:05 - Subjective Subjective: Progress Note for Dr. Terrazas Pt seen and examined at bedside. Pt doing well overnight with no acute events as per nursing. Pt states she has no complaints this morning. Pt did become bradycardic in the 40's at one point, but quickly came up to a normal rate. Denies CP, SOB, N/V/D. Objective - Vital Signs/Intake and Output Vital Signs (last 24 hours): Temp Pulse Resp BP Pulse Ox 98.6 F 68 18 181/75 H 99 05/28/17 13:50 05/28/17 13:50 05/28/17 13:50 05/28/17 13:50 05/28/17 13:50 - Medications Medications: Current Medications Amlodipine Besylate (Norvasc) 10 mg PO DAILY [facility] Last Admin: 05/28/17 14:19 Dose: 10 mg Apixaban (Eliquis) 2.5 mg PO BID [facility] Last Admin: 05/28/17 14:17 Dose: 2.5 mg Aspirin (Ecotrin) 81 mg PO DAILY [facility] Last Admin: 05/28/17 14:17 Dose: 81 mg Calcium Acetate (Phoslo) 667 mg PO TIDCC [facility] Carvedilol (Coreg) 6.25 mg PO BID [facility] Cinacalcet (Sensipar) 30 mg PO DAILY [facility] Last Admin: 05/28/17 14:18 Dose: 30 mg Clonidine HCl (Catapres) 0.3 mg PO BID [facility] Last Admin: 05/28/17 11:00 Dose: Not Given Insulin Aspart (Novolog) 0 unit SC ACHS [facility] PRN Reason: Protocol Last Admin: 05/28/17 13:51 Dose: 1 unit Losartan Potassium (Cozaar) 150 mg PO DAILY [facility] Last Admin: 05/28/17 14:18 Dose: 150 mg Pantoprazole Sodium (Protonix Ec Tab) 40 mg PO DAILY [facility] Last Admin: 05/28/17 14:19 Dose: 40 mg Rosuvastatin Calcium (Crestor) 10 mg PO HS [facility] Last Admin: 05/27/17 21:29 Dose: 10 mg - Labs Labs: 05/28/17 07:16 05/28/17 07:16 PT 10.6 SECONDS (9.7-12.2) 05/26/17 10:01 INR 0.9 05/26/17 10:01 APTT 29 SECONDS (21-34) 05/26/17 10:01 - Constitutional Appears: Well, No Acute Distress - Head Exam Head Exam: ATRAUMATIC, NORMAL INSPECTION, NORMOCEPHALIC - ENT Exam ENT Exam: Mucous Membranes Moist - Respiratory Exam Respiratory Exam: Clear to Ausculation Bilateral, NORMAL BREATHING PATTERN - Cardiovascular Exam Cardiovascular Exam: RRR, +S1, +S2 - GI/Abdominal Exam GI & Abdominal Exam: Soft, Normal Bowel Sounds. absent: Tenderness - Extremities Exam Extremities Exam: absent: Calf Tenderness, Pedal Edema - Neurological Exam Neurological Exam: Alert, Awake, Oriented x3 - Skin Skin Exam: Intact, Normal Color, Warm Assessment and Plan (1) New onset atrial fibrillation Assessment & Plan: NSR on monitor Patient clear for discharge Continue home medication regimen Status: Acute
[2017-05-28 15:26] VITALS: RESP 20
--- NOTE | 2017-05-28 18:09 | CP.PCM.PN ---
Subjective - Date & Time of Evaluation Date of Evaluation: 05/28/17 Time of Evaluation: 12:00 - Subjective Subjective: clinically same Objective - Vital Signs/Intake and Output Vital Signs (last 24 hours): Temp Pulse Resp BP Pulse Ox 98 F 68 20 132/65 100 05/28/17 15:25 05/28/17 15:25 05/28/17 15:25 05/28/17 15:25 05/28/17 15:25 Intake and Output: 05/28/17 05/28/17 06:59 18:59 Intake Total 240 Balance 240 - Medications Medications: Current Medications Amlodipine Besylate (Norvasc) 10 mg PO DAILY [facility] Last Admin: 05/28/17 14:19 Dose: 10 mg Apixaban (Eliquis) 2.5 mg PO BID [facility] Last Admin: 05/28/17 17:16 Dose: 2.5 mg Aspirin (Ecotrin) 81 mg PO DAILY [facility] Last Admin: 05/28/17 14:17 Dose: 81 mg Calcium Acetate (Phoslo) 667 mg PO [facility] Last Admin: 05/28/17 17:16 Dose: 667 mg Carvedilol (Coreg) 6.25 mg PO BID [facility] Last Admin: 05/28/17 17:16 Dose: 6.25 mg Cinacalcet (Sensipar) 30 mg PO DAILY [facility] Last Admin: 05/28/17 14:18 Dose: 30 mg Clonidine HCl (Catapres) 0.3 mg PO BID [facility] Last Admin: 05/28/17 17:16 Dose: 0.3 mg Insulin Aspart (Novolog) 0 unit SC A[facility]S [facility] PRN Reason: Protocol Last Admin: 05/28/17 17:16 Dose: 3 unit Losartan Potassium (Cozaar) 150 mg PO DAILY [facility] Last Admin: 05/28/17 14:18 Dose: 150 mg Pantoprazole Sodium (Protonix Ec Tab) 40 mg PO DAILY [facility] Last Admin: 05/28/17 14:19 Dose: 40 mg Rosuvastatin Calcium (Crestor) 10 mg PO HS [facility] Last Admin: 05/27/17 21:29 Dose: 10 mg - Labs Labs: 05/28/17 07:16 05/28/17 07:16 PT 10.6 SECONDS (9.7-12.2) 05/26/17 10:01 INR 0.9 05/26/17 10:01 APTT 29 SECONDS (21-34) 05/26/17 10:01 - Constitutional Appears: Well - Head Exam Head Exam: ATRAUMATIC, NORMAL INSPECTION, NORMOCEPHALIC - Eye Exam Eye Exam: EOMI, Normal appearance, PERRL Pupil Exam: NORMAL ACCOMODATION, PERRL - ENT Exam ENT Exam: Mucous Membranes Moist, Normal Exam - Neck Exam Neck Exam: Full ROM, Normal Inspection. absent: Lymphadenopathy - Respiratory Exam Respiratory Exam: Decreased Breath Sounds - Cardiovascular Exam Cardiovascular Exam: REGULAR RHYTHM, +S1, +S2 - GI/Abdominal Exam GI & Abdominal Exam: Soft, Diminished Bowel Sounds - Rectal Exam Rectal Exam: Deferred
[2017-05-29] MEDS: (Novolog) Insulin Aspart, Recombinant 100 u/ml 10 ml vial SC SCH ×2 (08:12→12:57)
--- NOTE | 2017-05-29 09:22 | CP.PCM.PN ---
Subjective - Date & Time of Evaluation Date of Evaluation: 05/29/17 Time of Evaluation: 09:21 - Subjective Subjective: PGY2 Medicine Note- Dr. Garcia's service: Patient seen and examined. Patient denies palpitations. Patient states she feels well, ready for DC. Objective - Vital Signs/Intake and Output Vital Signs (last 24 hours): Temp Pulse Resp BP Pulse Ox 98.2 F 73 20 169/75 H 96 05/28/17 23:15 05/29/17 06:16 05/28/17 23:15 05/29/17 06:16 05/28/17 23:15 Intake and Output: 05/29/17 05/29/17 06:59 18:59 Intake Total 100 Balance 100 - Medications Medications: Current Medications Amlodipine Besylate (Norvasc) 10 mg PO DAILY [facility] Last Admin: 05/28/17 14:19 Dose: 10 mg Apixaban (Eliquis) 2.5 mg PO BID [facility] Last Admin: 05/28/17 17:16 Dose: 2.5 mg Aspirin (Ecotrin) 81 mg PO DAILY [facility] Last Admin: 05/28/17 14:17 Dose: 81 mg Calcium Acetate (Phoslo) 667 mg PO TIDCC [facility] Last Admin: 05/29/17 08:23 Dose: 667 mg Carvedilol (Coreg) 6.25 mg PO BID [facility] Last Admin: 05/28/17 17:16 Dose: 6.25 mg Cinacalcet (Sensipar) 30 mg PO DAILY [facility] Last Admin: 05/28/17 14:18 Dose: 30 mg Clonidine HCl (Catapres) 0.3 mg PO BID [facility] Last Admin: 05/28/17 17:16 Dose: 0.3 mg Insulin Aspart (Novolog) 0 unit SC [facility] PRN Reason: Protocol Last Admin: 05/29/17 08:12 Dose: Not Given Losartan Potassium (Cozaar) 150 mg PO DAILY [facility] Last Admin: 05/28/17 14:18 Dose: 150 mg Pantoprazole Sodium (Protonix Ec Tab) 40 mg PO DAILY [facility] Last Admin: 05/28/17 14:19 Dose: 40 mg Rosuvastatin Calcium (Crestor) 10 mg PO HS [facility] Last Admin: 05/28/17 21:31 Dose: 10 mg - Labs Labs: 05/28/17 07:16 05/28/17 07:16 PT 10.6 SECONDS (9.7-12.2) 05/26/17 10:01 INR 0.9 05/26/17 10:01 APTT 29 SECONDS (21-34) 05/26/17 10:01 - Constitutional Appears: Non-toxic, No Acute Distress - Head Exam Head Exam: ATRAUMATIC, NORMOCEPHALIC - Eye Exam Eye Exam: EOMI - ENT Exam ENT Exam: Mucous Membranes Moist - Respiratory Exam Respiratory Exam: Clear to Ausculation Bilateral, NORMAL BREATHING PATTERN - Cardiovascular Exam Cardiovascular Exam: +S1, +S2 - GI/Abdominal Exam GI & Abdominal Exam: Soft, Normal Bowel Sounds. absent: Tenderness - Extremities Exam Extremities Exam: Normal Inspection. absent: Pedal Edema Additional comments: AVF with palpable thrill - Neurological Exam Neurological Exam: Alert, Awake - Psychiatric Exam Psychiatric exam: Normal Affect - Skin Skin Exam: Warm Assessment and Plan - Assessment and Plan (Free Text) Assessment: (1) New onset atrial fibrillation Assessment & Plan: NSR on monitor Patient clear for discharge per cardiology Continue home medication regimen: coreg 6.25mg BID continue eliquis 2.5mg PO BID, ASA 81mg daily (2) HTN Assessment & Plan: continue clonidine 0.3mg PO BID, cozaar 150mg daily, norvasc 10mg (3) ESRD on HD Assessment & Plan: continue dialysis MWF nephrology, Dr. Dueñas on board- help appreciated continue sensipar 30mg PO daily, phoslo 667mg PO TIDCC (4) HLD Assessment & Plan: continue crestor 10mg PO HS (5) Diabetes Assessment & Plan: continue ISS, monitor (6) Prophylaxis Assessment & Plan: continue protonix 40mg daily All medical management per Dr. Garcia Patient is stable for discharge home per Dr. Garcia. Patient is to follow up wither Dr. Garcia and her PMD Dr. Liz Castellanos. Patient is to stop taking coreg 3.125mg twice a day and instead take 6.25mg twice a day. Patient is also being given Eliquis 2.5mg BID. Patient is to resume other home medications. Patient is to resume home dialysis schedule and follow up with her manufacturer's service representative. This was explained to the patient who understands and agrees.
--- NOTE | 2017-05-29 10:53 | CP.PCM.PN ---
Subjective - Date & Time of Evaluation Date of Evaluation: 05/29/17 Time of Evaluation: 10:40 - Subjective Subjective: clinically same Objective - Vital Signs/Intake and Output Vital Signs (last 24 hours): Temp Pulse Resp BP Pulse Ox 98.2 F 73 20 169/75 H 96 05/28/17 23:15 05/29/17 06:16 05/28/17 23:15 05/29/17 06:16 05/28/17 23:15 Intake and Output: 05/29/17 05/29/17 06:59 18:59 Intake Total 100 Balance 100 - Medications Medications: Current Medications Amlodipine Besylate (Norvasc) 10 mg PO DAILY [facility] Last Admin: 05/28/17 14:19 Dose: 10 mg Apixaban (Eliquis) 2.5 mg PO BID [facility] Last Admin: 05/28/17 17:16 Dose: 2.5 mg Aspirin (Ecotrin) 81 mg PO DAILY [facility] Last Admin: 05/28/17 14:17 Dose: 81 mg Calcium Acetate (Phoslo) 667 mg PO TIDCC [facility] Last Admin: 05/29/17 08:23 Dose: 667 mg Carvedilol (Coreg) 6.25 mg PO BID [facility] Last Admin: 05/28/17 17:16 Dose: 6.25 mg Cinacalcet (Sensipar) 30 mg PO DAILY [facility] Last Admin: 05/28/17 14:18 Dose: 30 mg Clonidine HCl (Catapres) 0.3 mg PO BID [facility] Last Admin: 05/28/17 17:16 Dose: 0.3 mg Insulin Aspart (Novolog) 0 unit SC [facility] PRN Reason: Protocol Last Admin: 05/29/17 08:12 Dose: Not Given Losartan Potassium (Cozaar) 150 mg PO DAILY [facility] Last Admin: 05/28/17 14:18 Dose: 150 mg Pantoprazole Sodium (Protonix Ec Tab) 40 mg PO DAILY [facility] Last Admin: 05/28/17 14:19 Dose: 40 mg Rosuvastatin Calcium (Crestor) 10 mg PO HS [facility] Last Admin: 05/28/17 21:31 Dose: 10 mg - Labs Labs: 05/28/17 07:16 05/28/17 07:16 PT 10.6 SECONDS (9.7-12.2) 05/26/17 10:01 INR 0.9 05/26/17 10:01 APTT 29 SECONDS (21-34) 05/26/17 10:01 - Constitutional Appears: Well - Head Exam Head Exam: ATRAUMATIC, NORMAL INSPECTION, NORMOCEPHALIC - Eye Exam Eye Exam: EOMI, Normal appearance, PERRL Pupil Exam: NORMAL ACCOMODATION, PERRL - ENT Exam ENT Exam: Mucous Membranes Moist, Normal Exam - Neck Exam Neck Exam: Full ROM, Normal Inspection. absent: Lymphadenopathy - Respiratory Exam Respiratory Exam: Decreased Breath Sounds - Cardiovascular Exam Cardiovascular Exam: REGULAR RHYTHM, +S1, +S2 - GI/Abdominal Exam GI & Abdominal Exam: Soft, Diminished Bowel Sounds - Rectal Exam Rectal Exam: Deferred
[2017-05-29] MEDS: Pantoprazole 40 mg EC Tab PO SCH (11:16)
[2017-05-29 13:55] VITALS: BP 137/69; PULSE 56; TEMP 97.6; O2SAT 98
--- NOTE | 2017-05-29 14:49 | CP.PCM.PN ---
Subjective - Date & Time of Evaluation Date of Evaluation: 05/29/17 Time of Evaluation: 14:46 - Subjective Subjective: feels well no complaints palpitations resolved Objective - Vital Signs/Intake and Output Vital Signs (last 24 hours): Temp Pulse Resp BP Pulse Ox 97.6 F 56 L 20 137/69 98 05/29/17 13:54 05/29/17 13:54 05/29/17 13:54 05/29/17 13:54 05/29/17 13:54 Intake and Output: 05/29/17 05/29/17 06:59 18:59 Intake Total 100 Balance 100 - Medications Medications: Current Medications Amlodipine Besylate (Norvasc) 10 mg PO DAILY [facility] Last Admin: 05/29/17 11:16 Dose: 10 mg Apixaban (Eliquis) 2.5 mg PO BID [facility] Last Admin: 05/29/17 11:17 Dose: 2.5 mg Aspirin (Ecotrin) 81 mg PO DAILY [facility] Last Admin: 05/29/17 11:16 Dose: 81 mg Calcium Acetate (Phoslo) 667 mg PO TIDCC [facility] Last Admin: 05/29/17 12:58 Dose: 667 mg Carvedilol (Coreg) 6.25 mg PO BID [facility] Last Admin: 05/29/17 11:16 Dose: 6.25 mg Cinacalcet (Sensipar) 30 mg PO DAILY [facility] Last Admin: 05/29/17 11:16 Dose: 30 mg Clonidine HCl (Catapres) 0.3 mg PO BID [facility] Last Admin: 05/29/17 11:21 Dose: 0.3 mg Insulin Aspart (Novolog) 0 unit SC [facility] PRN Reason: Protocol Last Admin: 05/29/17 12:57 Dose: 1 unit Losartan Potassium (Cozaar) 150 mg PO DAILY [facility] Last Admin: 05/29/17 11:16 Dose: 150 mg Pantoprazole Sodium (Protonix Ec Tab) 40 mg PO DAILY [facility] Last Admin: 05/29/17 11:16 Dose: 40 mg Rosuvastatin Calcium (Crestor) 10 mg PO HS [facility] Last Admin: 05/28/17 21:31 Dose: 10 mg - Labs Labs: 05/28/17 07:16 05/28/17 07:16 PT 10.6 SECONDS (9.7-12.2) 05/26/17 10:01 INR 0.9 05/26/17 10:01 APTT 29 SECONDS (21-34) 05/26/17 10:01 - Constitutional Appears: Non-toxic, No Acute Distress - Head Exam Head Exam: NORMAL INSPECTION - Eye Exam Eye Exam: Normal appearance - ENT Exam ENT Exam: Mucous Membranes Moist, Normal Exam - Neck Exam Neck Exam: Normal Inspection - Respiratory Exam Respiratory Exam: Clear to Ausculation Bilateral, NORMAL BREATHING PATTERN - Cardiovascular Exam Cardiovascular Exam: RRR - GI/Abdominal Exam GI & Abdominal Exam: Distended, Soft - Extremities Exam Extremities Exam: Normal Inspection - Neurological Exam Neurological Exam: Alert, Oriented x3 - Psychiatric Exam Psychiatric exam: Normal Affect Assessment and Plan (1) New onset atrial fibrillation Status: Acute (2) Anemia of renal disease Status: Acute (3) CAD (coronary artery disease) Status: Acute (4) ESRD (end stage renal disease) on dialysis Status: Acute (5) Hypertensive urgency Status: Acute - Assessment and Plan (Free Text) Assessment: maintain hd mwf stable from renal standpoint
== END 2017-05-29 15:25 | disposition home or self-care (01) | DRG 308 ==
LOC: C.ER 08:57 → C.6T 14:06 → C.5T 16:40 → C.9E 16:53 → C.6T 16:54
PROVIDERS: ADMIT Internal Medicine Nephrology; ATTEND Internal Medicine Nephrology
PROC: 5A1D60Z (ICD-10-PCS; principal; 2017-05-26)
DX: I48.91 Unspecified atrial fibrillation (principal); N18.6 End stage renal disease; I13.2 Hypertensive heart and chronic kidney disease with heart failure and with stage 5 chronic kidney disease, or end stage renal disease; E11.21 Type 2 diabetes mellitus with diabetic nephropathy; D64.9 Anemia, unspecified; I25.10 Atherosclerotic heart disease of native coronary artery without angina pectoris; E11.22 Type 2 diabetes mellitus with diabetic chronic kidney disease; E03.9 Hypothyroidism, unspecified; I50.9 Heart failure, unspecified; I16.0 Hypertensive urgency; Z99.2 Dependence on renal dialysis; J45.909 Unspecified asthma, uncomplicated

== ENCOUNTER 2017-08-06 00:30 | Emergency (ER) | payer MEDICARE, OTHER ==
[2017-08-06 00:30] VITALS: BMI 25.0
--- NOTE | 2017-08-06 02:08 | C.PDOC ---
History Of Present Illness 77 y/o female c/o pain and swelling to the right wrist after falling [employer]. Denies LOC, head injury, weakness, numbness, or any other complaints. Time Seen by Provider: 08/06/17 01:02 Chief Complaint (Nursing): Finger,Hand,&Wrist History Per: Patient History/Exam Limitations: no limitations Onset/Duration Of Symptoms: Hrs Current Symptoms Are (Timing): Still Present Severity: Mild Exacerbating Factor(s): Movement Recent travel outside of the [place]: No Additional History Per: Patient Past Medical History Reviewed: Historical Data, Nursing Documentation, Vital Signs Vital Signs: Last Vital Signs Temp 97.5 F L 08/06/17 02:24 Pulse 79 08/06/17 02:24 Resp 18 08/06/17 02:24 BP 129/74 08/06/17 02:24 Pulse Ox 96 08/06/17 06:14 - Medical History PMH: Anemia, Asthma, CAD, Diabetes, HTN, Hypothyroidism, End Stage Renal Disease , Chronic Kidney Disease Denies: Kidney Stones Surgical History: Coronary Stent - [facility] Procedures ASPIRATION SKIN & SUBQ (04/23/14) EXCISION OF RIGHT LOBE LIVER, PERCUTANEOUS APPROACH, DIAGN (04/01/16) FLUOROSCOPY OF GALLBLADDER & BILE DUCT USING L OSM CONTRAST (04/01/16) HEMODIALYSIS (02/17/15) PERFORMANCE OF URINARY FILTRATION, MULTIPLE (05/26/17) PERFORMANCE OF URINARY FILTRATION, SINGLE (09/02/16) RESECTION OF GALLBLADDER, PERCUTANEOUS ENDOSCOPIC APPROACH (04/01/16) Family History: States: Unknown Family Hx - Social History Hx Tobacco Use: No Hx Alcohol Use: No Hx Substance Use: No - Immunization History Hx Tetanus Toxoid Vaccination: No Hx Influenza Vaccination: Yes Hx Pneumococcal Vaccination: Yes Review Of Systems Constitutional: Negative for: Other (Head injury) Musculoskeletal: Positive for: Hand Pain (Pain and swelling to the right wrist) Neurological: Negative for: Weakness, Numbness, Other (LOC) Physical Exam - Physical Exam Appears: Non-toxic, No Acute Distress Skin: Warm, Dry Head: Atraumatic, Normacephalic Eye(s): bilateral: Normal Inspection Extremity: Tenderness (Tenderness to the dorsal aspect of the right wrist.), Capillary Refill (<2secs), No Deformity, Swelling (to dorsal aspect of right wrist) Pulses: Left Radial: Normal, Right Radial: Normal Neurological/Psych: Oriented x3, Normal Motor, Normal Sensation ED Course And Treatment O2 Sat by Pulse Oximetry: 96 (RA) Pulse Ox Interpretation: Normal Progress Note: Plans: XRAy right wrist, Tylenol. XRAY right wrist shows questionable fracture to the distal radius. Pt placed in a volar splint and sling by CP and checked by me. Patient is in no acute distress and was instructed to follow up with Orthopedist for further evaluation and to return if symptoms worsens. Orthopedic Time Out: Side verified Procedure: Splint Type: Short, Volar Location: Right, Hand Consent obtained: Verbal Performed by: Mid-level Provider (by CP and checked by me) Diagnosis: Fracture Type: Non-displaced Location: Right, Volar Disposition Counseled Patient/Family Regarding: Studies Performed, Diagnosis, Need For Followup, Rx Given - Disposition Referrals: Yuriy Jimenez MD [Staff Provider] - Disposition: HOME/ ROUTINE Disposition Time: 02:05 Condition: STABLE Additional Instructions: Keep splnt until Hand doctor follwo up Apply ICE Tylenol for pain Wear sling for support Return to ER if worse Instructions: SUSPECTED FRACTURE (ED) Forms: Simple Admit (Slovak) - Clinical Impression Clinical Impression: Suspected fracture of bone, Right wrist injury - Scribe Statement The provider has reviewed the documentation as recorded by the Scribe Helio og All medical record entries made by the Scribe were at my direction and personally dictated by me. I have reviewed the chart and agree that the record accurately reflects my personal performance of the history, physical exam, medical decision making, and the department course for this patient. I have also personally directed, reviewed, and agree with the discharge instructions and disposition.
[2017-08-06 02:25] VITALS: BP 129/74; PULSE 79; RESP 18; TEMP 97.5
[2017-08-06 06:09] VITALS: O2SAT 96
--- NOTE | 2017-08-06 10:40 | RAD ---
PROCEDURE: Right Wrist Radiographs. HISTORY: pain, s/p fall COMPARISON: None. FINDINGS: BONES: Cortical lucency is questioned parallel to the plane of the the shaft of the distal right radius at the level of the epiphysis and metaphysis, potentially comminuted. Follow-up CT or MRI is advised for better characterization. A present this is likely an articular fracture. Degenerative cysts are identified at the trapezium and base of the 1st metacarpal bone which are likely degenerative. 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 The navicular bone appears intact. SOFT TISSUES: Creche Attendant calcification is seen at the renals ulnar side of the distal forearm and wrist soft tissues. OTHER FINDINGS: None. IMPRESSION: There is a likely nondisplaced articular fracture of the distal radius which is likely affecting the radiocarpal joint. No dislocation. Follow-up CT is advised for confirmation or MRI.
== END 2017-08-06 02:24 | disposition home or self-care (01) ==
LOC: C.ER 00:30
DX: S69.91XA Unspecified injury of right wrist, hand and finger(s), initial encounter (principal); W19.XXXA Unspecified fall, initial encounter

== ENCOUNTER 2017-08-06 08:05 | Emergency (ER) | payer MEDICARE, OTHER ==
[2017-08-06 08:06] VITALS: BMI 25.0
[2017-08-06] MEDS ORDERED: Acetaminophen-Codeine 300/30 mg Tab PO STA (08:42)
[2017-08-06 08:55] LABS: BASO # 0.1 K/uL (0.0-0.2); BASO % 1.4 % (0.0-2.0); EOS # 0.6 K/uL (0.0-0.7); EOS % 5.7 % (0.0-4.0); HEMATOCRIT 36.3 % (34.0-47.0); LYMPH # 1.5 K/uL (1.0-4.3); LYMPH % 15.7 % (20.0-40.0); MEAN CORPUSCULAR HEMOGLOBIN 25.1 pg (27.0-31.0); MEAN CORPUSCULAR HGB CONC 32.3 g/dL (33.0-37.0); MEAN PLATELET VOLUME 8.8 fL (7.2-11.7); MONO # 1.2 K/uL (0.0-0.8); MONO % 12.2 % (0.0-10.0); NRBC % 0.1 % (0.0-2.0); RED CELL DISTRIBUTION WIDTH 17.6 % (11.5-14.5); WHITE BLOOD COUNT 9.6 K/uL (4.8-10.8)
[2017-08-06 08:59] LABS: MEAN CELL VOLUME 77.8 fL (81.0-99.0)
[2017-08-06] MEDS ORDERED: Acetaminophen-Codeine 300/30 mg Tab PO ONE (09:03)
[2017-08-06 09:06] LABS: POTASSIUM 3.4 mmol/L (3.6-5.2)
[2017-08-06 09:09] LABS: ALB/GLOB RATIO 1.2 (1.0-2.1); BILIRUBIN,TOTAL 0.7 mg/dL (0.2-1.3); CALCIUM 8.9 mg/dl (8.6-10.4); TOTAL PROTEIN 8.1 g/dL (6.3-8.3)
--- NOTE | 2017-08-06 09:58 | C.PDOC ---
History Of Present Illness 77 year old female, with PMHx of ESRD on HD, presents to ED for evaluation of mild lower abdominal pain, and nausea that began 2 hours into her dialysis session this morning. Pt states her symptoms have now improved, and does not have abdominal pain or nausea at this time. Pt also complains of right arm pain , was seen overnight in our ED for a fall, and was found to have wrist fracture. Pt was discharged home with prescription of Tylenol, which she has been taking without relief. Patient denies chest pain, shortness of breath, vomiting, diarrhea, fever. Notes she still makes some urine occasionally. Time Seen by Provider: 08/06/17 08:07 Chief Complaint (Nursing): Abdominal Pain History Per: Patient History/Exam Limitations: no limitations Onset/Duration Of Symptoms: Days Current Symptoms Are (Timing): Better Severity: Mild Location Of Pain/Discomfort: Suprapubic Radiation Of Pain To:: None Quality Of Discomfort: "Pain" Associated Symptoms: Nausea. denies: Vomiting, Loss Of Appetite, Back Pain, Chest Pain, Constipation, Urinary Symptoms Exacerbating Factors: None Alleviating Factors: None Additional History Per: Patient Abnormal Vaginal Bleeding: No Past Medical History Reviewed: Historical Data, Nursing Documentation, Vital Signs Vital Signs: Last Vital Signs Temp 97.9 F 08/06/17 10:56 Pulse 75 08/06/17 10:56 Resp 18 08/06/17 10:56 BP 170/65 H 08/06/17 10:56 Pulse Ox 98 08/06/17 11:50 - Medical History PMH: Anemia, Asthma, CAD, Diabetes, HTN, Hypothyroidism, End Stage Renal Disease , Chronic Kidney Disease Surgical History: Coronary Stent - [facility] Procedures ASPIRATION SKIN & SUBQ (04/23/14) EXCISION OF RIGHT LOBE LIVER, PERCUTANEOUS APPROACH, DIAGN (04/01/16) FLUOROSCOPY OF GALLBLADDER & BILE DUCT USING L OSM CONTRAST (04/01/16) HEMODIALYSIS (02/17/15) PERFORMANCE OF URINARY FILTRATION, MULTIPLE (05/26/17) PERFORMANCE OF URINARY FILTRATION, SINGLE (09/02/16) RESECTION OF GALLBLADDER, PERCUTANEOUS ENDOSCOPIC APPROACH (04/01/16) Family History: States: No Known Family Hx - Social History Hx Tobacco Use: No Hx Alcohol Use: No Hx Substance Use: No - Immunization History Hx Tetanus Toxoid Vaccination: No Hx Influenza Vaccination: Yes Hx Pneumococcal Vaccination: Yes Review Of Systems Except As Marked, All Systems Reviewed And Found Negative. Constitutional: Negative for: Fever, Chills Cardiovascular: Negative for: Chest Pain, Palpitations Respiratory: Negative for: Shortness of Breath Gastrointestinal: Positive for: Nausea, Abdominal Pain. Negative for: Vomiting , Diarrhea Musculoskeletal: Positive for: Arm Pain (right) Neurological: Negative for: Weakness, Numbness Physical Exam - Physical Exam Appears: Well, Non-toxic, No Acute Distress Skin: Normal Color, Warm, Dry, No Rash Head: Normacephalic Oral Mucosa: Moist Neck: Normal, Supple Cardiovascular: Rhythm Regular Respiratory: Normal Breath Sounds, No Rales, No Rhonchi, No Wheezing Gastrointestinal/Abdominal: Bowel Sounds, Soft, Tenderness (mild suprapubic TTP) , No Distention, No Guarding, No Rebound, Other ((-) McBurney's) Back: No CVA Tenderness Extremity: Normal ROM, Pedal Edema (+2 pitting edema to b/l lower extremities), Capillary Refill (<2 sec.), No Deformity, Other (Right foreram in splint, Left arm: AV fistula with palpable thrill) Pulses: Left Radial: Normal, Right Radial: Normal Neurological/Psych: Oriented x3, Normal Motor ED Course And Treatment - Laboratory Results Result Diagrams: 08/06/17 08:49 08/06/17 08:49 O2 Sat by Pulse Oximetry: 98 (on RA) Pulse Ox Interpretation: Normal Progress Note: Blood work, UA ordered and reviewed. Pror ED visit reviewed, patient diagnosed with distal radius fx. Pt was given PO Tylenol#3. UA (+) for UTI, PO Ciprofloxacin given. Reevaluation Time: 11:00 Reassessment Condition: Improved (On reassessment, patient is resting comfortably, in no current pain/distress. She states her pain has resolved and she feels better. On exam, abdomen is soft and nontender. UA (+) for UTI - patient given Rxs for Ciprofloxacin and Tylenol. She was instructed to follow up with PMD in 1-2 days, and with orthopedics within 1 week as instructed during earlier ED visit. She understands she should return to ED if symptoms worsen.) Disposition Counseled Patient/Family Regarding: Studies Performed, Diagnosis, Need For Followup, Rx Given - Disposition Referrals: [facility] [Outside] Disposition: HOME/ ROUTINE Disposition Time: 11:00 Condition: STABLE Additional Instructions: FOLLOW UP WITH YOUR DOCTOR IN 1-2 DAYS, AND WITH ORTHOPEDICS PREVIOUSLY INSTRUCTED (DURING PRIOR VISIT) USE MEDICATIONS DIRECTED RETURN TO ER IF SYMPTOMS WORSEN Prescriptions: Acetaminophen with Codeine [Tylenol with Codeine #3 Tablet] 1 each PO Q6 PRN # 15 tablet PRN Reason: pain Ciprofloxacin [Cipro] 1 tab PO BID #14 tab Instructions: Urinary Tract Infection in Women (ED), Arthralgia (ED) Forms: Tiller (Kyrgyz) Print Language: DANISH - Clinical Impression Clinical Impression: UTI (urinary tract infection), Right wrist pain, Distal radius fracture - Scribe Statement The provider has reviewed the documentation as recorded by the Mauraibhuey Garcia All medical record entries made by the Placido were at my direction and personally dictated by me. I have reviewed the chart and agree that the record accurately reflects my personal performance of the history, physical exam, medical decision making, and the department course for this patient. I have also personally directed, reviewed, and agree with the discharge instructions and disposition.
[2017-08-06 10:45] LABS: RBC URINE 5 /hpf (0-3); URINE BILIRUBIN NEGATIVE (NEGATIVE); URINE BLOOD 2+ (NEGATIVE); URINE COLOR Yellow (YELLOW); URINE GLUCOSE (UA) NORMAL (Normal); URINE KETONE TRACE mg/dL (NEGATIVE); URINE LEUKOCYTE ESTERASE 3+ Leu/uL (Negative); URINE PROTEIN 2+ mg/dL (NEGATIVE); URINE UROBILINOGEN NORMAL mg/dL (0.2-1.0); WBC CLUMPS MOD /hpf; WBC URINE 62 /hpf (0-5)
[2017-08-06 10:57] VITALS: BP 170/65; PULSE 75; RESP 18; TEMP 97.9
[2017-08-06 10:58] VITALS: O2SAT 98
== END 2017-08-06 13:08 | disposition home or self-care (01) ==
LOC: C.ER 08:05
DX: N39.0 Urinary tract infection, site not specified (principal); S52.501A Unspecified fracture of the lower end of right radius, initial encounter for closed fracture; W19.XXXA Unspecified fall, initial encounter; M25.531 Pain in right wrist; I12.0 Hypertensive chronic kidney disease with stage 5 chronic kidney disease or end stage renal disease; N18.6 End stage renal disease; Z99.2 Dependence on renal dialysis

== ENCOUNTER 2017-08-10 23:46 | Emergency (ER) | payer MEDICARE, OTHER ==
[2017-08-10 23:47] VITALS: BMI 25.0
[2017-08-11 00:11] VITALS: TEMP 94; O2SAT 100
--- NOTE | 2017-08-11 00:14 | C.PDOC ---
History Of Present Illness Patient presents to the ER with a complaint of feeling nauseous. Patient states she is a Friday, Friday, Friday dialysis patient, she notes she only ate 3 potato pancakes today and took her medications on an empty stomach. Patient reports her blood sugar at home was 88; denies chest pain, palpitations, or SOB. Time Seen by Provider: 08/11/17 00:14 Chief Complaint (Nursing): Abdominal Pain History Per: Patient History/Exam Limitations: no limitations Onset/Duration Of Symptoms: Hrs Current Symptoms Are (Timing): Still Present Severity: Moderate Pain Scale Rating Of: 4 Quality Of Discomfort: Unable To Describe Associated Symptoms: Nausea. denies: Fever, Chills, Vomiting Exacerbating Factors: None Alleviating Factors: None Recent travel outside of the [place]: No Abnormal Vaginal Bleeding: No Past Medical History Reviewed: Historical Data, Nursing Documentation, Vital Signs Vital Signs: Last Vital Signs Temp 94 F L 08/11/17 00:00 Pulse 120 H 08/11/17 01:11 Resp 17 08/11/17 01:11 BP 166/64 H 08/11/17 01:11 Pulse Ox 100 08/11/17 01:11 - Medical History PMH: Anemia, Asthma, Atrial Fibrillation, CAD, Diabetes, HTN, Hypothyroidism, End Stage Renal Disease, Chronic Kidney Disease Surgical History: Coronary Stent - [facility] Procedures ASPIRATION SKIN & SUBQ (04/23/14) EXCISION OF RIGHT LOBE LIVER, PERCUTANEOUS APPROACH, DIAGN (04/01/16) FLUOROSCOPY OF GALLBLADDER & BILE DUCT USING L OSM CONTRAST (04/01/16) HEMODIALYSIS (02/17/15) PERFORMANCE OF URINARY FILTRATION, MULTIPLE (05/26/17) PERFORMANCE OF URINARY FILTRATION, SINGLE (09/02/16) RESECTION OF GALLBLADDER, PERCUTANEOUS ENDOSCOPIC APPROACH (04/01/16) Family History: States: Unknown Family Hx - Social History Hx Tobacco Use: No Hx Alcohol Use: No Hx Substance Use: No - Immunization History Hx Tetanus Toxoid Vaccination: No Hx Influenza Vaccination: Yes Hx Pneumococcal Vaccination: Yes Review Of Systems Constitutional: Negative for: Fever, Chills Cardiovascular: Negative for: Chest Pain, Palpitations Respiratory: Negative for: Shortness of Breath Gastrointestinal: Positive for: Nausea. Negative for: Vomiting Physical Exam - Physical Exam Appears: Non-toxic Skin: Warm, Dry Head: Normacephalic Oral Mucosa: Moist Teeth: Edentulous Chest: Symmetrical Cardiovascular: Rhythm Regular Respiratory: No Rales, No Rhonchi, No Wheezing Gastrointestinal/Abdominal: Soft, No Tenderness, Distention (Mildly), Other ( Tympanic to percussion) Extremity: Other (Right hand in splint from prior fall with wrist fracture. Right dialysis shunt with good thrill and bruit) Neurological/Psych: Oriented x3 ED Course And Treatment - Laboratory Results Result Diagrams: 08/11/17 00:42 08/11/17 00:42 ECG: Interpreted By Me, Viewed By Me ECG Rhythm: Sinus Rhythm (70), Nonspecific Changes O2 Sat by Pulse Oximetry: 100 (Room air) Pulse Ox Interpretation: Normal - Radiology CXR: Interpreted by Me Progress Note: EKG and blood work ordered. Pepcid and zofran administered. 1: 37 AM pt feels fine and wants to go home so she can have her HD Reevaluation Time: 01:35 Reassessment Condition: Improved Medical Decision Making Medical Decision Making: Upon provider reevaluation patient is feeling better, is medically stable, and requires no further treatment in the ED at this time. Patient will be discharged home with Rx for zofran . Counseling was provided and all questions were answered regarding diagnosis and need for follow up withdr monae. There is agreement to discharge plan. Return if symptoms persist or worsen Disposition Counseled Patient/Family Regarding: Studies Performed, Diagnosis, Need For Followup, Rx Given - Disposition Referrals: Ab Monae MD [Staff Provider] - Disposition: HOME/ ROUTINE Disposition Time: 00:14 Condition: FAIR Prescriptions: Ondansetron ODT [Zofran ODT] 1 odt PO BID PRN #10 odt PRN Reason: Nausea/Vomiting Instructions: Acute Nausea and Vomiting (ED) Forms: iGlue (Hungarian) - Clinical Impression Clinical Impression: Nausea & vomiting - Scribe Statement The provider has reviewed the documentation as recorded by the Scribe Nikita Fabian All medical record entries made by the Scribe were at my direction and personally dictated by me. I have reviewed the chart and agree that the record accurately reflects my personal performance of the history, physical exam, medical decision making, and the department course for this patient. I have also personally directed, reviewed, and agree with the discharge instructions and disposition.
[2017-08-11 00:45] LABS: BASO # 0.1 K/uL (0.0-0.2); BASO % 1.1 % (0.0-2.0); EOS # 0.2 K/uL (0.0-0.7); EOS % 1.9 % (0.0-4.0); HEMATOCRIT 39.9 % (34.0-47.0); LYMPH # 1.3 K/uL (1.0-4.3); MEAN CELL VOLUME 78.6 fL (81.0-99.0); MEAN CORPUSCULAR HEMOGLOBIN 24.7 pg (27.0-31.0); MEAN CORPUSCULAR HGB CONC 31.4 g/dL (33.0-37.0); MEAN PLATELET VOLUME 8.6 fL (7.2-11.7); MONO # 0.9 K/uL (0.0-0.8); MONO % 6.9 % (0.0-10.0); RED CELL DISTRIBUTION WIDTH 17.8 % (11.5-14.5); WHITE BLOOD COUNT 12.5 K/uL (4.8-10.8)
[2017-08-11 00:56] LABS: ALB/GLOB RATIO 1.2 (1.0-2.1); BILIRUBIN,TOTAL 0.8 mg/dL (0.2-1.3); CALCIUM 9.2 mg/dl (8.6-10.4); POTASSIUM 4.8 mmol/L (3.6-5.2); TOTAL PROTEIN 8.5 g/dL (6.3-8.3)
[2017-08-11 01:11] VITALS: BP 166/64; PULSE 120; RESP 17
== END 2017-08-11 01:59 | disposition home or self-care (01) ==
LOC: C.ER 23:46
DX: R11.2 Nausea with vomiting, unspecified (principal); I12.0 Hypertensive chronic kidney disease with stage 5 chronic kidney disease or end stage renal disease; N18.6 End stage renal disease; Z99.2 Dependence on renal dialysis; I48.91 Unspecified atrial fibrillation; I25.10 Atherosclerotic heart disease of native coronary artery without angina pectoris; E11.9 Type 2 diabetes mellitus without complications
CPT/HCPCS: 80053; 83690; 85025; 96374; 96375; 99285; J2405

== ENCOUNTER 2017-08-20 04:57 | Observation (INO) | payer MEDICARE, OTHER ==
[2017-08-20 04:58] VITALS: BMI 25.0
--- NOTE | 2017-08-20 05:24 | C.PDOC ---
History Of Present Illness The patient presents to the ED for evaluation of abdominal pain and constipation which began around 2 days ago. Patient states she has not had a bowel movement in 2 days. Patient has history of ESRD and attends M-W-F dialysis. Patient states she has not attended dialysis because of her abdominal pain. Patient denies fever, chills, nausea, vomiting. Time Seen by Provider: 08/20/17 05:24 Chief Complaint (Nursing): Abdominal Pain History Per: Patient History/Exam Limitations: no limitations Onset/Duration Of Symptoms: Days (2) Current Symptoms Are (Timing): Still Present Severity: Mild Pain Scale Rating Of: 3 Location Of Pain/Discomfort: Diffuse Radiation Of Pain To:: None Quality Of Discomfort: "Pain" Associated Symptoms: Constipation. denies: Fever, Chills, Nausea, Vomiting Exacerbating Factors: None Alleviating Factors: None Last Bowel Movement: Days Ago (2) Recent travel outside of the [place]: No Additional History Per: Patient Abnormal Vaginal Bleeding: No Past Medical History Reviewed: Historical Data, Nursing Documentation, Vital Signs Vital Signs: Last Vital Signs Temp 99.4 F 08/20/17 05:28 Pulse 71 08/20/17 05:28 Resp 20 08/20/17 05:28 BP 122/66 08/20/17 05:28 Pulse Ox 97 08/20/17 06:26 - Medical History PMH: Anemia, Asthma, Atrial Fibrillation, CAD, Diabetes, HTN, Hypothyroidism, End Stage Renal Disease, Chronic Kidney Disease Denies: Kidney Stones Surgical History: Coronary Stent - [facility] Procedures ASPIRATION SKIN & SUBQ (04/23/14) EXCISION OF RIGHT LOBE LIVER, PERCUTANEOUS APPROACH, DIAGN (04/01/16) FLUOROSCOPY OF GALLBLADDER & BILE DUCT USING L OSM CONTRAST (04/01/16) HEMODIALYSIS (02/17/15) PERFORMANCE OF URINARY FILTRATION, MULTIPLE (05/26/17) PERFORMANCE OF URINARY FILTRATION, SINGLE (09/02/16) RESECTION OF GALLBLADDER, PERCUTANEOUS ENDOSCOPIC APPROACH (04/01/16) Family History: States: Unknown Family Hx - Social History Hx Tobacco Use: No Hx Alcohol Use: No Hx Substance Use: No - Immunization History Hx Tetanus Toxoid Vaccination: No Hx Influenza Vaccination: Yes Hx Pneumococcal Vaccination: Yes Review Of Systems Constitutional: Negative for: Fever, Chills Cardiovascular: Negative for: Chest Pain, Palpitations Respiratory: Negative for: Cough, Shortness of Breath Gastrointestinal: Positive for: Abdominal Pain, Constipation. Negative for: Nausea, Vomiting, Diarrhea Genitourinary: Negative for: Dysuria, Frequency, Hematuria Musculoskeletal: Negative for: Back Pain Skin: Negative for: Rash, Lesions, Jaundice, Bruising Neurological: Negative for: Weakness, Numbness Physical Exam - Physical Exam Appears: Non-toxic, No Acute Distress Skin: Warm, Dry Head: Normacephalic Eye(s): bilateral: Normal Inspection Oral Mucosa: Moist Neck: Supple Chest: Symmetrical, No Deformity, No Tenderness Cardiovascular: Rhythm Regular, No Murmur Respiratory: No Rales, Rhonchi (scattered ), No Wheezing, Other (speaking in complete sentences ) Gastrointestinal/Abdominal: Soft, No Tenderness, Distention, No Guarding, No Rebound, Other (tympanic to percussion ) Extremity: Pedal Edema (trace), Capillary Refill (less than 2 seconds ), Other ( right upper extremity: Cast in place. Dialysis graft with good thrill and bruit ) Neurological/Psych: Oriented x3 Gait: Steady ED Course And Treatment - Laboratory Results Result Diagrams: 08/20/17 06:26 ECG: Interpreted By Me, Viewed By Me ECG Rhythm: Sinus Rhythm (71), Nonspecific Changes (pvc's) O2 Sat by Pulse Oximetry: 97 (on RA) Pulse Ox Interpretation: Normal - Radiology CXR: Interpreted by Me, Viewed By Me CXR Interpretation: No: Infiltrates, Fracture, Pnemothorax - Other Rad obst X-Ray: Interpreted by Me, Viewed By Me Interpretation: lots of stool no obstr Progress Note: labs, EKG, obstructive series abdomen ordered and reviewed. Patient received Protonix IVP. Disposition Counseled Patient/Family Regarding: Studies Performed, Diagnosis - Disposition Disposition Time: 05:24 Condition: FAIR Forms: [employer] (Faroese) - Clinical Impression Clinical Impression: Abdominal pain, Constipation, ESRD needing dialysis - Scribe Statement The provider has reviewed the documentation as recorded by the Scribe (Taylor Garcia) Provider Attestation: All medical record entries made by the Scribe were at my direction and personally dictated by me. I have reviewed the chart and agree that the record accurately reflects my personal performance of the history, physical exam, medical decision making, and the department course for this patient. I have also personally directed, reviewed, and agree with the discharge instructions and disposition. Physician Patient Turnover Patient Signed Over To: Karla Das Handoff Comments: pending labs, and dispostion
[2017-08-20 06:30] LABS: BASO # 0.1 K/uL (0.0-0.2); BASO % 1.4 % (0.0-2.0); EOS # 0.4 K/uL (0.0-0.7); EOS % 4.4 % (0.0-4.0); HEMATOCRIT 32.5 % (34.0-47.0); LYMPH # 1.4 K/uL (1.0-4.3); LYMPH % 16.2 % (20.0-40.0); MEAN CELL VOLUME 77.9 fL (81.0-99.0); MEAN CORPUSCULAR HEMOGLOBIN 25.5 pg (27.0-31.0); MEAN CORPUSCULAR HGB CONC 32.7 g/dL (33.0-37.0); MEAN PLATELET VOLUME 8.4 fL (7.2-11.7); MONO # 0.9 K/uL (0.0-0.8); MONO % 10.8 % (0.0-10.0); RED CELL DISTRIBUTION WIDTH 17.9 % (11.5-14.5); WHITE BLOOD COUNT 8.6 K/uL (4.8-10.8)
[2017-08-20 06:44] LABS: ALB/GLOB RATIO 1.3 (1.0-2.1); BILIRUBIN,TOTAL 0.8 mg/dL (0.2-1.3); CALCIUM 8.8 mg/dl (8.6-10.4); POTASSIUM 4.5 mmol/L (3.6-5.2); TOTAL PROTEIN 7.3 g/dL (6.3-8.3)
--- NOTE | 2017-08-20 09:31 | RAD ---
PROCEDURE: Radiographs of the chest and abdomen (obstructive series) HISTORY: abd pain COMPARISON: No prior. TECHNIQUE: AP radiograph of the chest, with upright and supine radiographs of the abdomen. FINDINGS: CHEST: Lungs: No evidence of acute pulmonary disease. Cardiovascular: The cardiac silhouette is mildly enlarged. Mild pulmonary vascular congestion noted. Pleura: No pleural fluid. No pneumothorax. Other findings: None. ABDOMEN AND PELVIS: Bowel: Moderate constipation is noted. No radiographic evidence of small bowel obstruction. Free air: None. Bones: Advanced degenerative changes. Other findings: Status post cholecystectomy. IMPRESSION: Moderate constipation. No radiographic evidence of small bowel obstruction. Prominent size of the heart and possible LUIS DANIEL mild pulmonary vascular congestion.
--- NOTE | 2017-08-20 15:29 | CP.PCM.CON ---
History of Present Illness - History of Present Illness History of Present Illness: 77 y/o AA female on dialysis about 14 years admitted with fecal impaction. Unable to get enema in ED due to impaction On dialysis now- routine treatment; has had fluid overload in past due to missed dialysis. PMH: ESRD HTN DM 2 S/P CVA CAD PSH: AV F AND AV GRAFT CORONARY STENTS Review of Systems - Constitutional Constitutional: Daytime Sleepiness, Lethargy, Weight Loss - EENT Eyes: absent: As Per HPI, Blind Spots, Blurred Vision, Change in Vision, Decreased Night Vision, Diplopia, Discharge, Dry Eye, Exophthalmos, Floaters, Irritation, Itchy Eyes, Loss of Peripheral Vision, Pain, Photophobia, Requires Corrective Lenses, Sees Flashes, Spots in Vision, Tunnel Vision, Other Visual Disturbances, Loss of Vision, Other Ears: absent: As Per HPI, Decreased Hearing, Ear Discharge, Ear Pain, Tinnitus, Abnormal Hearing, Disequilibrium, Dizziness, Other Nose/Mouth/Throat: absent: As Per HPI, Epistaxis, Nasal Congestion, Nasal Discharge, Nasal Obstruction, Nasal Trauma, Nose Pain, Post Nasal Drip, Sinus Pain, Sinus Pressure, Bleeding Gums, Change in Voice, Dental Pain, Dry Mouth, Dysphagia, Halitosis, Hoarsness, Lip Swelling, Mouth Lesions, Mouth Pain, Odynophagia, Sore Throat, Throat Swelling, Tongue Swelling, Facial Pain, Neck Pain, Neck Mass, Other - Cardiovascular Cardiovascular: Dyspnea on Exertion, Leg Edema - Respiratory Respiratory: Cough, Dyspnea on Exertion - Gastrointestinal Gastrointestinal: Constipation, Early Satiety - Genitourinary Genitourinary: As Per HPI - Musculoskeletal Musculoskeletal: Muscle Cramps, Muscle Weakness - Integumentary Integumentary: absent: As Per HPI, Acne, Alopecia, Bleeding Lesions, Change in Hair, Change in Nails, Change in Pigmentation, Changing Lesions, Dry Skin, Erythema, Furuncle, Hirsutism, Lesions, New Lesions, Non-Healing Lesions, Photosensitivity, Pruritus, Rash, Skin Pain, Skin Ulcer, Sores, Striae, Swelling , Unusual Bruising, Wounds, Jaundice, Other - Neurological Neurological: Weakness Past Patient History - Infectious Disease Hx of Infectious Diseases: None - Tetanus Immunizations Tetanus Immunization: Unknown - Past Medical History & Family History Past Medical History?: Yes Pertinent Family History: SON ON DIALYSIS - Past Social History Smoking Status: Never Smoked Chewing Tobacco Use: No Cigar Use: No Alcohol: None Drugs: Denies Home Situation {Lives}: Alone - CARDIAC Hx Atrial Fibrillation: Yes Hx Hypertension: Yes - PULMONARY Hx Asthma: Yes - NEUROLOGICAL Hx Neurological Disorder: No - HEENT Hx HEENT Problems: Yes Other/Comment: wear eyeglasses - RENAL Hx Chronic Kidney Disease: Yes Hx Kidney Stones: No - ENDOCRINE/METABOLIC Hx Hypothyroidism: Yes - HEMATOLOGICAL/ONCOLOGICAL Hx Anemia: Yes - INTEGUMENTARY Hx Dermatological Problems: No - MUSCULOSKELETAL/RHEUMATOLOGICAL Hx Musculoskeletal Disorders: No Hx Falls: No - GASTROINTESTINAL Hx Gastrointestinal Disorders: No - GENITOURINARY/GYNECOLOGICAL Hx Genitourinary Disorders: No - PSYCHIATRIC Hx Substance Use: No - SURGICAL HISTORY Hx Coronary Stent: Yes - ANESTHESIA Hx Anesthesia: Yes Hx Anesthesia Reactions: No Hx Malignant Hyperthermia: No Meds Allergies/Adverse Reactions: Allergies Allergy/AdvReac Type Severity Reaction Status Date / Time No Known Allergies Allergy Verified 08/06/17 08:15 - Medications Medications: Current Medications Amlodipine Besylate (Norvasc) 10 mg PO DAILY [facility] Aspirin (Ecotrin) 81 mg PO DAILY [facility] Calcium Acetate (Phoslo) 667 mg PO DAILY [facility] Carvedilol (Coreg) 3.125 mg PO BID [facility] Cinacalcet (Sensipar) 30 mg PO DAILY [facility] Clonidine HCl (Catapres) 0.2 mg PO BID [facility] Losartan Potassium (Cozaar) 150 mg PO DAILY [facility] Oxcarbazepine (Trileptal) 150 mg PO DAILY [facility] Physical Exam - Constitutional Appears: Non-toxic, Chronically Ill - Head Exam Head Exam: ATRAUMATIC, NORMAL INSPECTION - Eye Exam Eye Exam: EOMI, Normal appearance - Neck Exam Neck exam: Positive for: Normal Inspection. Negative for: Tenderness - Respiratory Exam Respiratory Exam: Clear to Auscultation Bilateral, NORMAL BREATHING PATTERN - Cardiovascular Exam Cardiovascular Exam: REGULAR RHYTHM, JVD - GI/Abdominal Exam GI & Abdominal Exam: Soft. absent: Tenderness - Extremities Exam Extremities exam: Positive for: normal inspection. Negative for: tenderness - Neurological Exam Neurological exam: Alert, CN II-XII Intact - Skin Skin Exam: Dry, Warm Results - Vital Signs Recent Vital Signs: Last Vital Signs Temp 98.2 F 08/20/17 10:05 Pulse 71 08/20/17 10:05 Resp 18 08/20/17 10:05 BP 154/74 H 08/20/17 10:05 Pulse Ox 96 08/20/17 10:05 - Labs Result Diagrams: 08/20/17 06:26 08/20/17 06:26 Labs: Laboratory Results - last 24 hr 08/20/17 08/20/17 08/20/17 06:26 06:26 06:26 WBC 8.6 RBC 4.18 Hgb 10.6 L Hct 32.5 L MCV 77.9 L MCH 25.5 L MCHC 32.7 L RDW 17.9 H Plt Count 240 MPV 8.4 Neut % (Auto) 67.2 Lymph % (Auto) 16.2 L Ceiba % (Auto) 10.8 H Eos % (Auto) 4.4 H Baso % (Auto) 1.4 Neut # 5.8 Lymph # 1.4 Ceiba # 0.9 H Eos # 0.4 Baso # 0.1 PT 10.9 INR 1.0 APTT 31 Sodium 137 Potassium 4.5 Chloride 90 L Carbon Dioxide 32 H Anion Gap 20 BUN 28 H Creatinine 7.6 H* Est GFR ( Amer) 6 Est GFR (Non-Af Amer) 5 Random Glucose 141 H Calcium 8.8 Total Bilirubin 0.8 AST 35 ALT 27 Alkaline Phosphatase 117 Total Protein 7.3 Albumin 4.0 Globulin 3.2 Albumin/Globulin Ratio 1.3 Lipase 35 Assessment & Plan (1) Abdominal pain Status: Acute (2) Constipation Status: Acute (3) ESRD needing dialysis Status: Acute (4) CAD (coronary artery disease) Status: Acute (5) CHF (congestive heart failure) Status: Acute (6) DM type 2 causing ESRD Status: Acute (7) Diabetes mellitus Status: Acute (8) Hypertension Status: Chronic - Assessment and Plan (Free Text) Plan: Dialysis MWF hold binders due to constipation trial mineral oil, lactulose might need manual disimpaction
[2017-08-20 18:59] VITALS: O2SAT 97
--- NOTE | 2017-08-20 23:29 | CP.PCM.HP ---
History of Present Illness - History of Present Illness History of Present Illness: 77 years old female came to the ED at [facility], complaining of abdominal pain for the past 2 days[address]scan of the abdomen reveals fecal impaction. The patient denies any fever, nausea, vomiting. She is known to have an IDDM, an ESRD on HD, a HPTN, she sustained a fracture of the right radius from a fall at home on 08/06/2017. Present on Admission - Present on Admission Any Indicators Present on Admission: No Review of Systems - Gastrointestinal Gastrointestinal: Abdominal Pain, Constipation Past Patient History - Infectious Disease Hx of Infectious Diseases: None - Tetanus Immunizations Tetanus Immunization: Unknown - Past Medical History & Family History Past Medical History?: Yes - Past Social History Smoking Status: Never Smoked Alcohol: None Home Situation {Lives}: Alone - CARDIAC Hx Atrial Fibrillation: Yes Hx Hypertension: Yes - PULMONARY Hx Asthma: Yes - NEUROLOGICAL Hx Neurological Disorder: No - HEENT Hx HEENT Problems: Yes Other/Comment: wear eyeglasses - RENAL Hx Chronic Kidney Disease: Yes Hx Dialysis: Yes Type of Dialysis Access: arterioveous shunt right upper arm Date of Last Dialysis Treatment: 08/20/17 Hx Kidney Stones: No Hx Renal Failure: Yes - ENDOCRINE/METABOLIC Hx Diabetes Mellitus Type 1: Yes Hx Diabetes Mellitus Type 2: Yes Hx Hypothyroidism: Yes - HEMATOLOGICAL/ONCOLOGICAL Hx Anemia: Yes - INTEGUMENTARY Hx Dermatological Problems: No - MUSCULOSKELETAL/RHEUMATOLOGICAL Hx Musculoskeletal Disorders: No Hx Falls: Yes (2 weeks ago) Hx Fractures: Yes (right wrist w/soft cast s/p fall 2 weeks ago) - GASTROINTESTINAL Hx Gastrointestinal Disorders: No Hx Constipation: Yes - GENITOURINARY/GYNECOLOGICAL Hx Genitourinary Disorders: No - PSYCHIATRIC Hx Substance Use: No - SURGICAL HISTORY Hx Arteriovenous Shunt: Yes Hx Coronary Stent: Yes - ANESTHESIA Hx Anesthesia: Yes Hx Anesthesia Reactions: No Hx Malignant Hyperthermia: No Meds Allergies/Adverse Reactions: Allergies Allergy/AdvReac Type Severity Reaction Status Date / Time No Known Allergies Allergy Verified 08/06/17 08:15 Physical Exam - Constitutional Appears: No Acute Distress, Chronically Ill - Head Exam Head Exam: NORMAL INSPECTION - Eye Exam Eye Exam: Normal appearance - ENT Exam ENT Exam: Normal Exam - Neck Exam Neck exam: Positive for: Normal Inspection - Respiratory Exam Respiratory Exam: Clear to Auscultation Bilateral - Cardiovascular Exam Cardiovascular Exam: REGULAR RHYTHM - GI/Abdominal Exam GI & Abdominal Exam: Distended, Hypoactive Bowel Sounds - Rectal Exam Rectal Exam: Deferred - Extremities Exam Additional comments: Right forearm under plaster. - Back Exam Back exam: NORMAL INSPECTION - Neurological Exam Neurological exam: Alert, Oriented x3 - Psychiatric Exam Psychiatric exam: Anxious - Skin Skin Exam: Dry, Intact, Normal Color, Warm Results - Vital Signs Recent Vital Signs: Last Vital Signs Temp 98.6 F 08/20/17 18:00 Pulse 80 08/20/17 18:00 Resp 20 08/20/17 18:00 BP 179/73 H 08/20/17 18:00 Pulse Ox 97 08/20/17 18:00 - Labs Result Diagrams: 08/20/17 06:26 08/20/17 06:26 Labs: Laboratory Results - last 24 hr 08/20/17 08/20/17 08/20/17 06:26 06:26 06:26 WBC 8.6 RBC 4.18 Hgb 10.6 L Hct 32.5 L MCV 77.9 L MCH 25.5 L MCHC 32.7 L RDW 17.9 H Plt Count 240 MPV 8.4 Neut % (Auto) 67.2 Lymph % (Auto) 16.2 L Barron % (Auto) 10.8 H Eos % (Auto) 4.4 H Baso % (Auto) 1.4 Neut # 5.8 Lymph # 1.4 Barron # 0.9 H Eos # 0.4 Baso # 0.1 PT 10.9 INR 1.0 APTT 31 Sodium 137 Potassium 4.5 Chloride 90 L Carbon Dioxide 32 H Anion Gap 20 BUN 28 H Creatinine 7.6 H* Est GFR ( Amer) 6 Est GFR (Non-Af Amer) 5 POC Glucose (mg/dL) Random Glucose 141 H Calcium 8.8 Total Bilirubin 0.8 AST 35 ALT 27 Alkaline Phosphatase 117 Total Protein 7.3 Albumin 4.0 Globulin 3.2 Albumin/Globulin Ratio 1.3 Lipase 35 Hep Bs Antigen Hep Bs Antibody Hepatitis C Antibody 08/20/17 08/20/17 08/20/17 17:16 18:21 18:21 WBC RBC Hgb Hct MCV MCH MCHC RDW Plt Count MPV Neut % (Auto) Lymph % (Auto) Barron % (Auto) Eos % (Auto) Baso % (Auto) Neut # Lymph # Barron # Eos # Baso # PT INR APTT Sodium Potassium Chloride Carbon Dioxide Anion Gap BUN Creatinine Est GFR ( Amer) Est GFR (Non-Af Amer) POC Glucose (mg/dL) 110 Random Glucose Calcium Total Bilirubin AST ALT Alkaline Phosphatase Total Protein Albumin Globulin Albumin/Globulin Ratio Lipase Hep Bs Antigen Negative Hep Bs Antibody Negative Hepatitis C Antibody Negative 08/20/17 21:11 WBC RBC Hgb Hct MCV MCH MCHC RDW Plt Count MPV Neut % (Auto) Lymph % (Auto) Barron % (Auto) Eos % (Auto) Baso % (Auto) Neut # Lymph # Barron # Eos # Baso # PT INR APTT Sodium Potassium Chloride Carbon Dioxide Anion Gap BUN Creatinine Est GFR ( Amer) Est GFR (Non-Af Amer) POC Glucose (mg/dL) 217 H Random Glucose Calcium Total Bilirubin AST ALT Alkaline Phosphatase Total Protein Albumin Globulin Albumin/Globulin Ratio Lipase Hep Bs Antigen Hep Bs Antibody Hepatitis C Antibody Assessment & Plan (1) Fecal impaction Assessment and Plan: Try Lactulose enema. Status: Acute (2) ESRD needing dialysis Assessment and Plan: As per Dr Dueñas. Status: Acute (3) Insulin dependent diabetes mellitus Assessment and Plan: Cover blood glucose according to Accucheck findings. Status: Acute (4) Hypertension Assessment and Plan: To continue same home meds. Status: Acute Decision To Admit - Pt Status Changed To: Hospital Disposition Of: Observation - . Bed Request Type: Regular Admitting Physician: Ab Monae
[2017-08-21] MEDS: (Novolog) Insulin Aspart, Recombinant 100 u/ml 10 ml vial SC SCH ×3 (08:30→18:03)
[2017-08-21 09:29] VITALS: PULSE 60
--- NOTE | 2017-08-21 09:32 | CP.PCM.PN ---
Subjective - Date & Time of Evaluation Date of Evaluation: 08/21/17 Time of Evaluation: 09:31 - Subjective Subjective: in endoscopy, couldnt be examined labile bp hd yesterday Objective - Vital Signs/Intake and Output Vital Signs (last 24 hours): Temp Pulse Resp BP Pulse Ox 98 F 60 21 171/77 H 97 08/21/17 09:28 08/21/17 09:28 08/21/17 09:28 08/21/17 09:28 08/21/17 09:28 Intake and Output: 08/21/17 08/21/17 06:59 18:59 Intake Total 750 Balance 750 - Medications Medications: Current Medications Amlodipine Besylate (Norvasc) 10 mg PO DAILY [facility] Last Admin: 08/21/17 09:28 Dose: 10 mg Aspirin (Ecotrin) 81 mg PO DAILY [facility] Last Admin: 08/21/17 09:24 Dose: 81 mg Carvedilol (Coreg) 3.125 mg PO BID [facility] Last Admin: 08/21/17 09:24 Dose: 3.125 mg Cinacalcet (Sensipar) 30 mg PO DAILY [facility] Last Admin: 08/21/17 09:28 Dose: 30 mg Clonidine HCl (Catapres) 0.2 mg PO BID [facility] Last Admin: 08/21/17 09:23 Dose: 0.2 mg Heparin Sodium (Porcine) (Heparin) 5,000 units SC Q12 [facility] Last Admin: 08/21/17 09:25 Dose: 5,000 units Insulin Aspart (Novolog) 0 unit SC ACHS [facility] PRN Reason: Protocol Last Admin: 08/21/17 08:30 Dose: 1 unit Lactulose (Enulose) 20 gm PO Q2H [facility] Last Admin: 08/21/17 08:47 Dose: Not Given Losartan Potassium (Cozaar) 150 mg PO DAILY [facility] Last Admin: 08/21/17 09:24 Dose: 150 mg Mineral Oil (Mineral Oil 30ml) 30 ml PO ONCE [facility] Oxcarbazepine (Trileptal) 150 mg PO DAILY [facility] Last Admin: 08/21/17 09:24 Dose: 150 mg - Labs Labs: 08/20/17 06:26 08/20/17 06:26 PT 10.9 SECONDS (9.7-12.2) 08/20/17 06:26 INR 1.0 08/20/17 06:26 APTT 31 SECONDS (21-34) 08/20/17 06:26 Assessment and Plan (1) Constipation Status: Acute (2) ESRD needing dialysis Status: Acute (3) Fecal impaction Status: Acute (4) Hypertension Status: Acute (5) Insulin dependent diabetes mellitus Status: Acute - Assessment and Plan (Free Text) Assessment: maintain hd mwf GI management
[2017-08-21 16:37] VITALS: BP 165/77
[2017-08-21 16:42] VITALS: RESP 20; TEMP 98.9
== END 2017-08-21 20:40 | disposition home or self-care (01) ==
LOC: C.ER 04:57 → C.9E 07:43 → C.3T 16:34
PROVIDERS: ADMIT Internal Medicine Cardiovascular Disease; ATTEND Internal Medicine Cardiovascular Disease
DX: K56.41 Fecal impaction (principal); N18.6 End stage renal disease; I12.0 Hypertensive chronic kidney disease with stage 5 chronic kidney disease or end stage renal disease; E11.22 Type 2 diabetes mellitus with diabetic chronic kidney disease; J45.909 Unspecified asthma, uncomplicated; I48.91 Unspecified atrial fibrillation; I25.10 Atherosclerotic heart disease of native coronary artery without angina pectoris; E03.9 Hypothyroidism, unspecified; Z79.4 Long term (current) use of insulin; Z91.81 History of falling; Z95.5 Presence of coronary angioplasty implant and graft; Z86.73 Personal history of transient ischemic attack (TIA), and cerebral infarction without residual deficits; Z99.2 Dependence on renal dialysis
CPT/HCPCS: 74022; 80053; 82948; 83690; 85025; 85610; 85730; 86706; 86803; 87340; 96374; 97162; 99285; C9113; G0257; G0378; G8978; G8979; J1644

== ENCOUNTER 2017-12-05 17:10 | Emergency (ER) | payer MEDICARE, OTHER ==
[2017-12-05 17:18] VITALS: BMI 27.5
[2017-12-05 17:25] VITALS: TEMP 98.3
--- NOTE | 2017-12-05 18:09 | C.PDOC ---
History Of Present Illness 77 year old female presents to ED for evaluation of mild headache s/p slip and fall earlier today. Pt states that she slipped while walking on an icy sidewalk , hitting the back of her head. Denies LOC, neck pain, dizziness, weakness, numbness, nausea, vomiting, or any other associated symptoms at this time. - HPI Time Seen by Provider: 12/05/17 17:39 Chief Complaint (Nursing): Trauma History Per: Patient History/Exam Limitations: no limitations Onset/Duration Of Symptoms: Hrs Injury Occurred (Timing): Hours Ago: Location Of Injury: Posterior: Head Recent travel outside of the [place]: No Additional History Per: Patient - Fall Fall:Prior To Injury: Slipped Past Medical History Reviewed: Historical Data, Nursing Documentation, Vital Signs Vital Signs: Last Vital Signs Temp 98.3 F 12/05/17 17:18 Pulse 107 H 12/05/17 17:18 Resp 18 12/05/17 17:18 BP 131/84 12/05/17 17:18 Pulse Ox 100 12/05/17 19:37 - Medical History PMH: Anemia, Arthritis (R HAND FX), Asthma, Atrial Fibrillation, CAD, Diabetes, Fractures (right wrist w/soft cast s/p fall 2 weeks ago), HTN, Hypothyroidism, End Stage Renal Disease, Chronic Kidney Disease Denies: Kidney Stones Surgical History: Coronary Stent - [facility] Procedures ASPIRATION SKIN & SUBQ (04/23/14) EXCISION OF RIGHT LOBE LIVER, PERCUTANEOUS APPROACH, DIAGN (04/01/16) FLUOROSCOPY OF GALLBLADDER & BILE DUCT USING L OSM CONTRAST (04/01/16) HEMODIALYSIS (02/17/15) PERFORMANCE OF URINARY FILTRATION, MULTIPLE (05/26/17) PERFORMANCE OF URINARY FILTRATION, SINGLE (09/02/16) RESECTION OF GALLBLADDER, PERCUTANEOUS ENDOSCOPIC APPROACH (04/01/16) Family History: States: Unknown Family Hx - Social History Hx Tobacco Use: No Hx Alcohol Use: No Hx Substance Use: No - Immunization History Hx Tetanus Toxoid Vaccination: No Hx Influenza Vaccination: Yes Hx Pneumococcal Vaccination: Yes Review Of Systems Except As Marked, All Systems Reviewed And Found Negative. Constitutional: Negative for: Fever, Chills Eyes: Negative for: Vision Change Cardiovascular: Negative for: Chest Pain, Palpitations Respiratory: Negative for: Shortness of Breath Gastrointestinal: Negative for: Nausea, Vomiting Neurological: Positive for: Headache. Negative for: Weakness, Numbness, Dizziness Physical Exam - Physical Exam Appears: Non-toxic, No Acute Distress Skin: Normal Color, Warm, Dry Head: Normacephalic, No Tenderness, No Swelling Eye(s): bilateral: Normal Inspection, EOMI Oral Mucosa: Moist Neck: Normal ROM, No Midline Cervical Tenderness, No Paracervical Tenderness, Supple Cardiovascular: Rhythm Regular Respiratory: Normal Breath Sounds Extremity: Normal ROM, No Deformity Neurological/Psych: Oriented x3, Normal Speech, Normal Cognition, No Other (no focal deficits) Gait: Steady ED Course And Treatment O2 Sat by Pulse Oximetry: 100 (RA) Pulse Ox Interpretation: Normal - CT Scan/US Head CT Other Rad Studies (CT/US): Read By Radiologist, Radiology Report Reviewed CT/US Interpretation: PROCEDURE: CT scan brain dated 12/05/2017. HISTORY: Status post fall with headache. COMPARISON: Comparison made with prior CT scan brain 02/17/2015. TECHNIQUE: Axial computed tomography images were obtained through the head/brain without intravenous contrast. Radiation dose: Total exam DLP = 848.838 mGy-cm. This CT exam was performed using one or more of the following dose reduction techniques: Automated exposure control, adjustment of the mA and/or kV according to patient size, and/or use of iterative reconstruction technique. FINDINGS: HEMORRHAGE: No acute parenchymal, subarachnoid or extra-axial hemorrhage. BRAIN: Moderate to significant diffuse/ confluent chronic white matter ischemic changes again seen extending peripherally into the deep and subcortical white matter both cerebral hemispheres. There also appears to be some extension of these changes into the white matter tracts of both basal nuclei. Few scattered chronic bilateral basal nuclei lacunar type infarcts also noted. Moderate generalized volume loss. Dense vascular calcifications both carotid siphons and vertebral arteries. VENTRICLES: No obstructive hydrocephalus. CALVARIUM: No acute calvarial fractures. PARANASAL SINUSES: Minor mucosal thickening seen within left chamber sphenoid sinus which is associate with a small elliptical shaped calcification that may represent an osteoma or bone island. MASTOID AIR CELLS: Unremarkable as visualized. No inflammatory changes. OTHER FINDINGS: Changes of bilateral cataract surgery. IMPRESSION: No acute intracranial hemorrhage. Moderate to fairly significant diffuse/confluent chronic white matter ischemic changes extending peripherally into the deep and subcortical white matter both cerebral hemispheres. There also appears to be some extension of these changes into the white matter tracts of both basal nuclei. Few scattered chronic bilateral basal nuclei lacunar type infarcts also noted. Progress Note: Head CT ordered and reviewed. On reassessment, patient is resting comfortably, is tolerating PO, and pain has improved. Patient has no neurologic deficit, photophobia, rash, fever, or nuchal rigidity. Patient was instructed to follow up with physician/clinic in 1-2 days. Disposition Counseled Patient/Family Regarding: Diagnosis, Need For Followup, Rx Given - Disposition Disposition: HOME/ ROUTINE Disposition Time: 19:33 Condition: STABLE Additional Instructions: Please follow up with PMD in 1-2 days Tylenol for headache Return to ER if severe headache, dizziness, vomiting, weakness, lethargy or worse Advised to stay with family member overnight for concussion precautions Instructions: Head Injury (ED) Forms: [employer] [facility] ([place]an) - Clinical Impression Clinical Impression: Head injury - PA / MAINTENANCE SUPERINTENDENT / Resident Statement MD/DO has reviewed & agrees with the documentation as recorded. - Scribe Statement The provider has reviewed the documentation as recorded by the Mauraibhuey Garcia All medical record entries made by the Mauraibhuey were at my direction and personally dictated by me. I have reviewed the chart and agree that the record accurately reflects my personal performance of the history, physical exam, medical decision making, and the department course for this patient. I have also personally directed, reviewed, and agree with the discharge instructions and disposition.
--- NOTE | 2017-12-05 18:58 | CT ---
PROCEDURE: CT scan brain dated 12/05/2017. HISTORY: Status post fall with headache. COMPARISON: Comparison made with prior CT scan brain 02/17/2015. TECHNIQUE: Axial computed tomography images were obtained through the head/brain without intravenous contrast. Radiation dose: Total exam DLP = 848.838 mGy-cm. This CT exam was performed using one or more of the following dose reduction techniques: Automated exposure control, adjustment of the mA and/or kV according to patient size, and/or use of iterative reconstruction technique. FINDINGS: HEMORRHAGE: No acute parenchymal, subarachnoid or extra-axial hemorrhage. BRAIN: Moderate to significant diffuse/ confluent chronic white matter ischemic changes again seen extending peripherally into the deep and subcortical white matter both cerebral hemispheres. There also appears to be some extension of these changes into the white matter tracts of both basal nuclei. Few scattered chronic bilateral basal nuclei lacunar type infarcts also noted. Moderate generalized volume loss. Dense vascular calcifications both carotid siphons and vertebral arteries. VENTRICLES: No obstructive hydrocephalus. CALVARIUM: No acute calvarial fractures. PARANASAL SINUSES: Minor mucosal thickening seen within left chamber sphenoid sinus which is associate with a small elliptical shaped calcification that may represent an osteoma or bone island. MASTOID AIR CELLS: Unremarkable as visualized. No inflammatory changes. OTHER FINDINGS: Changes of bilateral cataract surgery. IMPRESSION: No acute intracranial hemorrhage. Moderate to fairly significant diffuse/confluent chronic white matter ischemic changes extending peripherally into the deep and subcortical white matter both cerebral hemispheres. There also appears to be some extension of these changes into the white matter tracts of both basal nuclei. Few scattered chronic bilateral basal nuclei lacunar type infarcts also noted.
[2017-12-05 20:05] VITALS: BP 128/76; PULSE 73; RESP 16; O2SAT 98
== END 2017-12-05 20:05 | disposition home or self-care (01) ==
LOC: C.ER 17:10
DX: S09.90XA Unspecified injury of head, initial encounter (principal); W00.0XXA Fall on same level due to ice and snow, initial encounter; Y92.480 Sidewalk as the place of occurrence of the external cause

== ENCOUNTER 2017-12-29 04:09 | Emergency (ER) | payer MEDICARE, OTHER ==
[2017-12-29 04:17] VITALS: BMI 28.3
[2017-12-29 04:28] VITALS: TEMP 99
[2017-12-29 04:52] LABS: BASO # 0.1 K/uL (0.0-0.2); BASO % 0.7 % (0.0-2.0); EOS # 0.2 K/uL (0.0-0.7); HEMOGLOBIN 11.2 g/dL (11.0-16.0); LYMPH % 12.6 % (20.0-40.0); MEAN CELL VOLUME 78.1 fL (81.0-99.0); MEAN CORPUSCULAR HEMOGLOBIN 25.4 pg (27.0-31.0); MEAN CORPUSCULAR HGB CONC 32.5 g/dL (33.0-37.0); MONO # 0.8 K/uL (0.0-0.8); MONO % 9.7 % (0.0-10.0); NEUT # 6.2 K/uL (1.8-7.0); NRBC % 0.1 % (0.0-2.0); RBC 4.4 Mil/uL (3.80-5.20); RED CELL DISTRIBUTION WIDTH 20.2 % (11.5-14.5); WHITE BLOOD COUNT 8.2 K/uL (4.8-10.8)
[2017-12-29 05:19] LABS: TROPONIN I 0.059 ng/mL (0.00-0.120)
--- NOTE | 2017-12-29 05:21 | CT ---
EXAM: CT Neck Without Intravenous Contrast CLINICAL HISTORY: 77 years old, female; Pain; Neck pain; Additional info: Left lateral neck pain TECHNIQUE: Axial computed tomography images of the neck without intravenous contrast. All CT scans at this facility use one or more dose reduction techniques, viz.: automated exposure control; ma/kV adjustment per patient size (including targeted exams where dose is matched to indication; i.e. head); or iterative reconstruction technique. 238 images are submitted. Coronal and sagittal reformatted images were created and reviewed. COMPARISON: No relevant prior studies available. FINDINGS: Nasopharynx: Unremarkable. Oropharynx: Unremarkable. No significant tonsillar enlargement. Hypopharynx: Unremarkable. Larynx: Unremarkable. Normal epiglottis. Trachea: Unremarkable. Retropharyngeal space: Unremarkable. Submandibular/parotid glands: Fatty infiltration of parotid glands. 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 Correlation with thyroid function test and patient's clinical history is recommended. Bones/joints: Multilevel degenerative disc disease. There is anterolisthesis of C. lobe 4 over C5 measuring 3 mm. There is retrolisthesis of C6 over C7 at measuring 4 mm. No acute fracture. Facet arthritis. Soft tissues: Unremarkable. Vasculature: The visualized portions of vein appears unremarkable. Vascular calcifications. Lymph nodes: Unremarkable. No lymphadenopathy. Sinuses: Patchy sphenoid sinus disease. Dental: Edentulous maxilla and mandible. Lung apices: The visualized portions of lung apices are clear. IMPRESSION: No acute findings on this unenhanced CT scan of the neck.
[2017-12-29 05:25] LABS: ALB/GLOB RATIO 1.2 (1.0-2.1); ALBUMIN 3.9 g/dL (3.5-5.0); CALCIUM 7.9 mg/dl (8.6-10.4)
[2017-12-29 06:02] VITALS: BP 125/75; PULSE 98; RESP 24; O2SAT 98
--- NOTE | 2017-12-29 06:09 | C.PDOC ---
History Of Present Illness Pt c/o left sided neck pain. Denies injury. Time Seen by Provider: 12/29/17 04:28 Chief Complaint (Nursing): Medical Clearance History Per: Patient Onset/Duration Of Symptoms: Hrs (since last night) Current Symptoms Are (Timing): Still Present Quality Of Discomfort: "Pain" Severity: Moderate Associated Symptoms: None Exacerbating Factor(s): Turning, Movement Additional History Per: Prior Records Past Medical History Reviewed: Historical Data, Nursing Documentation, Vital Signs Vital Signs: Last Vital Signs Temp 99.0 F 12/29/17 04:22 Pulse 98 H 12/29/17 06:01 Resp 24 12/29/17 06:01 BP 125/75 12/29/17 06:01 Pulse Ox 98 12/29/17 06:11 - Medical History PMH: Anemia, Arthritis (R HAND FX), Asthma, Atrial Fibrillation, CAD, Diabetes, Fractures (right wrist w/soft cast s/p fall 2 weeks ago), HTN, Hypothyroidism, End Stage Renal Disease (on dialysis M/W/F), Chronic Kidney Disease Surgical History: Coronary Stent - [facility] Procedures ASPIRATION SKIN & SUBQ (04/23/14) EXCISION OF RIGHT LOBE LIVER, PERCUTANEOUS APPROACH, DIAGN (04/01/16) FLUOROSCOPY OF GALLBLADDER & BILE DUCT USING L OSM CONTRAST (04/01/16) HEMODIALYSIS (02/17/15) PERFORMANCE OF URINARY FILTRATION, MULTIPLE (05/26/17) PERFORMANCE OF URINARY FILTRATION, SINGLE (09/02/16) RESECTION OF GALLBLADDER, PERCUTANEOUS ENDOSCOPIC APPROACH (04/01/16) Family History: States: Unknown Family Hx - Social History Hx Tobacco Use: No Hx Alcohol Use: No Hx Substance Use: No - Immunization History Hx Tetanus Toxoid Vaccination: No Hx Influenza Vaccination: Yes Hx Pneumococcal Vaccination: Yes Review Of Systems Except As Marked, All Systems Reviewed And Found Negative. Constitutional: Negative for: Fever, Weakness ENT: Negative for: Ear Pain, Ear Discharge, Throat Pain, Throat Swelling Cardiovascular: Negative for: Chest Pain Respiratory: Negative for: Shortness of Breath Gastrointestinal: Negative for: Nausea, Vomiting, Abdominal Pain Musculoskeletal: Positive for: Neck Pain. Negative for: Arm Pain, Back Pain Skin: Negative for: Rash Neurological: Negative for: Weakness, Numbness, Headache Physical Exam - Physical Exam Appears: No Acute Distress, Chronically Ill Skin: Normal Color, Warm, Dry, No Rash Head: Atraumatic, Normacephalic Eye(s): bilateral: PERRL, EOMI Ear(s): Bilateral: Normal Throat: Normal Neck: Normal ROM, No Midline Cervical Tenderness, No Step Off Deformity, Supple , Other (tenderness along the left SCM muscle) Lymphatic: No Adenopathy Cardiovascular: Rhythm Regular Respiratory: Normal Breath Sounds, No Accessory Muscle Use Gastrointestinal/Abdominal: Soft, No Tenderness Back: No CVA Tenderness, No Vertebral Tenderness Extremity: Normal ROM Pulses: Left Radial: Normal Neurological/Psych: Oriented x3, Normal Speech, Normal Motor, Normal Sensation ED Course And Treatment - Laboratory Results Result Diagrams: 12/29/17 04:48 12/29/17 04:48 ECG: Interpreted By Me, Viewed By Me ECG Rhythm: Sinus Rhythm, PVC, Nonspecific Changes Rate From EC O2 Sat by Pulse Oximetry: 98 Pulse Ox Interpretation: Normal - CT Scan/US CT neck Other Rad Studies (CT/US): Read By Radiologist, Radiology Report Reviewed CT/US Interpretation: IMPRESSION: No acute findings on this unenhanced CT scan of the neck. Progress Note: Pt feels better. We contacted her dialysis center and they will dialyse her today. We arranged for transportation for her from here to ther dialysis center. Reassessment Condition: Improved Disposition Counseled Patient/Family Regarding: Studies Performed, Diagnosis, Need For Followup - Disposition Disposition: HOME/ ROUTINE Disposition Time: 06:17 Condition: IMPROVED Additional Instructions: Follow up with your doctor within 2 days for further evaluation and treatment. Return to the ER if you develop fever, redness, swelling, weakness, numbness, worsening of symptoms or if you have any other concerns. Instructions: Cervical Strain (DC) Forms: [facility] (Welsh) - Clinical Impression Clinical Impression: ESRD needing dialysis, Neck pain on left side
== END 2017-12-29 06:28 | disposition home or self-care (01) ==
LOC: C.ER 04:09
DX: M54.2 Cervicalgia (principal); I12.0 Hypertensive chronic kidney disease with stage 5 chronic kidney disease or end stage renal disease; N18.6 End stage renal disease; Z99.2 Dependence on renal dialysis; I48.91 Unspecified atrial fibrillation; I25.10 Atherosclerotic heart disease of native coronary artery without angina pectoris; E03.9 Hypothyroidism, unspecified

== ENCOUNTER 2018-01-02 13:11 | Emergency (ER) | payer MEDICARE, OTHER ==
[2018-01-02 13:11] VITALS: BMI 28.3
[2018-01-02 13:20] VITALS: TEMP 97.7; O2SAT 100
[2018-01-02] MEDS ORDERED: Aluminum Hydroxide/Magnesium Hydroxide Susp (30 mL) PO STA (13:47)
--- NOTE | 2018-01-02 13:53 | C.PDOC ---
History Of Present Illness 77 y/o female presents to the ER complaining of stomach pain which began today after she came back home from dialysis. Patient states that she had 2 episodes of vomiting today as she vomited cornbread. Patient states that she has some diarrhea. Patient does not have any other complaints. Chief Complaint (Nursing): Abdominal Pain History Per: Patient History/Exam Limitations: no limitations Onset/Duration Of Symptoms: Hrs Current Symptoms Are (Timing): Still Present Severity: Moderate Past Medical History Reviewed: Historical Data, Nursing Documentation, Vital Signs Vital Signs: Last Vital Signs Temp 97.7 F 01/02/18 13:19 Pulse 74 01/02/18 17:15 Resp 20 01/02/18 17:15 BP 186/80 H 01/02/18 17:15 Pulse Ox 100 01/02/18 17:43 - Medical History PMH: Anemia, Arthritis (R HAND FX), Asthma, Atrial Fibrillation, CAD, Diabetes, Fractures (right wrist w/soft cast s/p fall 2 weeks ago), HTN, Hyperlipidemia, Hypothyroidism, End Stage Renal Disease (on dialysis M/W/F), Chronic Kidney Disease Denies: Kidney Stones Surgical History: Coronary Stent - [facility] Procedures ASPIRATION SKIN & SUBQ (04/23/14) EXCISION OF RIGHT LOBE LIVER, PERCUTANEOUS APPROACH, DIAGN (04/01/16) FLUOROSCOPY OF GALLBLADDER & BILE DUCT USING L OSM CONTRAST (04/01/16) HEMODIALYSIS (02/17/15) PERFORMANCE OF URINARY FILTRATION, MULTIPLE (05/26/17) PERFORMANCE OF URINARY FILTRATION, SINGLE (09/02/16) RESECTION OF GALLBLADDER, PERCUTANEOUS ENDOSCOPIC APPROACH (04/01/16) Family History: States: No Known Family Hx - Social History Hx Tobacco Use: No Hx Alcohol Use: No Hx Substance Use: No - Immunization History Hx Tetanus Toxoid Vaccination: No Hx Influenza Vaccination: Yes Hx Pneumococcal Vaccination: Yes Review Of Systems Except As Marked, All Systems Reviewed And Found Negative. Constitutional: Negative for: Fever, Chills Gastrointestinal: Positive for: Vomiting, Abdominal Pain, Diarrhea. Negative for: Nausea Physical Exam - Physical Exam Appears: Non-toxic, No Acute Distress Skin: Normal Color, Warm Head: Atraumatic, Normacephalic Eye(s): bilateral: Normal Inspection Nose: Normal Oral Mucosa: Moist Neck: Supple Chest: Symmetrical Cardiovascular: Rhythm Regular Respiratory: Normal Breath Sounds, No Accessory Muscle Use, No Rales, No Rhonchi , No Wheezing Gastrointestinal/Abdominal: Normal Exam, Soft, Tenderness (epigastric tenderness ), Guarding, No Rebound, Other (midline laparoscopy scar) Extremity: Normal ROM, Pedal Edema (2+ bilateral pedal edema) Neurological/Psych: Oriented x3, Normal Speech, Normal Motor, Normal Sensation ED Course And Treatment - Laboratory Results Result Diagrams: 01/02/18 14:01 01/02/18 14:01 O2 Sat by Pulse Oximetry: 100 (RA) Pulse Ox Interpretation: Normal Medical Decision Making Medical Decision Making: Plan: --Labs --Zofran Disposition - Disposition Disposition: HOME/ ROUTINE Disposition Time: 17:37 Condition: FAIR Additional Instructions: Take antacids as prescribed.Return for any worsening of symptoms Instructions: Epigastric Pain (ED) Forms: [facility] ([place]inean) - Clinical Impression Clinical Impression: Epigastric abdominal pain - Scribe Statement The provider has reviewed the documentation as recorded by the Placido Pepe Provider Attestation: All medical record entries made by the Placido were at my direction and personally dictated by me. I have reviewed the chart and agree that the record accurately reflects my personal performance of the history, physical exam, medical decision making, and the department course for this patient. I have also personally directed, reviewed, and agree with the discharge instructions and disposition.
[2018-01-02 14:03] LABS: BASO % 0.6 % (0.0-2.0); EOS % 0.6 % (0.0-4.0); HEMOGLOBIN 12.1 g/dL (11.0-16.0); LYMPH # 0.9 K/uL (1.0-4.3); LYMPH % 12.3 % (20.0-40.0); MEAN CELL VOLUME 77.1 fL (81.0-99.0); MEAN CORPUSCULAR HEMOGLOBIN 25.9 pg (27.0-31.0); MEAN CORPUSCULAR HGB CONC 33.6 g/dL (33.0-37.0); MEAN PLATELET VOLUME 7.9 fL (7.2-11.7); MONO # 0.7 K/uL (0.0-0.8); MONO % 9.1 % (0.0-10.0); NEUT # 5.9 K/uL (1.8-7.0); NEUT % 77.4 % (50.0-75.0); RBC 4.67 Mil/uL (3.80-5.20); RED CELL DISTRIBUTION WIDTH 19.8 % (11.5-14.5); WHITE BLOOD COUNT 7.7 K/uL (4.8-10.8)
[2018-01-02] MEDS ORDERED: Aluminum Hydroxide/Magnesium Hydroxide Susp (30 mL) ONE (14:12)
[2018-01-02] MEDS ORDERED: Morphine 4 MG/ML VIAL ONE (14:12)
[2018-01-02 14:22] LABS: ALB/GLOB RATIO 1.1 (1.0-2.1); ALBUMIN 4.4 g/dL (3.5-5.0); CALCIUM 8.7 mg/dl (8.6-10.4)
[2018-01-02] MEDS ORDERED: (Novolin R) Insulin Human Regular 100 units/ml vial IV ONE (14:48)
[2018-01-02] MEDS: PROCHLORPERAZINE PO STA ×2 (15:15→15:31)
[2018-01-02] MEDS ORDERED: (Novolin R) Insulin Human Regular 100 units/ml vial ONE (15:20)
[2018-01-02 19:50] VITALS: BP 179/78; PULSE 80; RESP 18
== END 2018-01-02 20:43 | disposition home or self-care (01) ==
LOC: C.ER 13:11
DX: R10.13 Epigastric pain (principal); I12.0 Hypertensive chronic kidney disease with stage 5 chronic kidney disease or end stage renal disease; E11.22 Type 2 diabetes mellitus with diabetic chronic kidney disease; N18.6 End stage renal disease; Z99.2 Dependence on renal dialysis
CPT/HCPCS: 80053; 82948; 83690; 85025; 96374; 96375; 99284; C9113; J0780; J2270; J2405

== ENCOUNTER 2018-03-18 16:52 | Emergency (ER) | payer MEDICARE, OTHER ==
[2018-03-18 16:53] VITALS: BMI 28.3
[2018-03-18 17:08] VITALS: BP 165/66; PULSE 67; RESP 18; TEMP 98.5; O2SAT 96
--- NOTE | 2018-03-18 17:19 | C.PDOC ---
History Of Present Illness 78 y/o F c PMHx DM p/w low glucometer reading at home. Patient states glucometer read 22. She denies any symptoms including lethargy, drowsiness, dyspnea, palpitations, diaphoresis, confusion. She denies ingesting anything whatsoever prior to coming to ED. Fingerstick here 200+, which patient states is normal for her. She states home glucomter reading must have been in error and feels comfortable to go home. Time Seen by Provider: 03/18/18 17:15 Chief Complaint (Nursing): Medical Clearance Past Medical History Vital Signs: Last Vital Signs Temp 98.5 F 03/18/18 17:05 Pulse 67 03/18/18 17:05 Resp 18 03/18/18 17:05 BP 165/66 H 03/18/18 17:05 Pulse Ox 96 03/18/18 17:19 - Medical History PMH: Anemia, Arthritis (R HAND FX), Asthma, Atrial Fibrillation, CAD, Diabetes, Fractures (right wrist w/soft cast s/p fall 2 weeks ago), HTN, Hyperlipidemia, Hypothyroidism, End Stage Renal Disease (on dialysis M/W/F), Chronic Kidney Disease Denies: Kidney Stones Surgical History: Coronary Stent - [facility] Procedures ASPIRATION SKIN & SUBQ (04/23/14) EXCISION OF RIGHT LOBE LIVER, PERCUTANEOUS APPROACH, DIAGN (04/01/16) FLUOROSCOPY OF GALLBLADDER & BILE DUCT USING L OSM CONTRAST (04/01/16) HEMODIALYSIS (02/17/15) PERFORMANCE OF URINARY FILTRATION, MULTIPLE (05/26/17) PERFORMANCE OF URINARY FILTRATION, SINGLE (09/02/16) RESECTION OF GALLBLADDER, PERCUTANEOUS ENDOSCOPIC APPROACH (04/01/16) Family History: States: Unknown Family Hx - Social History Hx Tobacco Use: No Hx Alcohol Use: No Hx Substance Use: No - Immunization History Hx Tetanus Toxoid Vaccination: No Hx Influenza Vaccination: Yes Hx Pneumococcal Vaccination: Yes Review Of Systems Except As Marked, All Systems Reviewed And Found Negative. Cardiovascular: Negative for: Palpitations Respiratory: Negative for: Shortness of Breath Physical Exam - Physical Exam Appears: Non-toxic, No Acute Distress Skin: No Rash Head: Normacephalic Eye(s): bilateral: PERRL Oral Mucosa: Moist Cardiovascular: Rhythm Regular Respiratory: Normal Breath Sounds Gastrointestinal/Abdominal: Soft Extremity: No Swelling Pulses: Left Radial: Normal, Right Radial: Normal Neurological/Psych: Normal Speech, Normal Cognition ED Course And Treatment O2 Sat by Pulse Oximetry: 96 Disposition - Disposition Referrals: Ab Monae MD [Staff Provider] - Disposition: HOME/ ROUTINE Disposition Time: 17:17 Condition: STABLE Instructions: Low Blood Sugar, Adult (DC) Forms: [employer] [facility] (Hebrew) - Clinical Impression Clinical Impression: Abnormal glucose measurement
== END 2018-03-18 17:30 | disposition home or self-care (01) ==
LOC: C.ER 16:52
DX: R73.09 Other abnormal glucose (principal)

== ENCOUNTER 2018-08-31 17:27 | Observation (INO) | payer MEDICARE, OTHER ==
[2018-08-31 17:28] VITALS: BMI 28.3
[2018-08-31 19:35] LABS: BASO # 0.1 K/uL (0.0-0.2); BASO % 1.7 % (0.0-2.0); EOS # 0.5 K/uL (0.0-0.7); EOS % 7.2 % (0.0-4.0); HEMOGLOBIN 12.4 g/dL (11.0-16.0); LYMPH # 1.2 K/uL (1.0-4.3); LYMPH % 16.8 % (20.0-40.0); MEAN CORPUSCULAR HEMOGLOBIN 26.9 pg (27.0-31.0); MEAN CORPUSCULAR HGB CONC 32.8 g/dL (33.0-37.0); MEAN PLATELET VOLUME 8.3 fL (7.2-11.7); MONO # 0.8 K/uL (0.0-0.8); MONO % 11.5 % (0.0-10.0); NEUT # 4.6 K/uL (1.8-7.0); NEUT % 62.8 % (50.0-75.0); NRBC % 0.1 % (0.0-2.0); RBC 4.61 Mil/uL (3.80-5.20); RED CELL DISTRIBUTION WIDTH 15.8 % (11.5-14.5); WHITE BLOOD COUNT 7.3 K/uL (4.8-10.8)
[2018-08-31 19:52] LABS: ALB/GLOB RATIO 1.1 (1.0-2.1); ALBUMIN 4.1 g/dL (3.5-5.0); CALCIUM 8.3 mg/dl (8.6-10.4)
[2018-08-31 19:58] LABS: TROPONIN I 0.05 ng/mL (0.00-0.120)
--- NOTE | 2018-08-31 20:08 | C.PDOC ---
History Of Present Illness 78 y/o female with PMHx of insulin-dependent diabetes, hypertension, A Fib, and end stage renal disease (on dialysis M-W-F), brought in by ambulance for evaluation s/p hypoglycemic episode. As per family, patient was talking on the p franco with her daughter today and began not making sense so 911 was called. EMS found blood sugar to be 26, 1 amp of D50 given in the field. On arrival patient is AAOx3, speaking in full sentences, offering no physical complaints. Reports she was given food on arrival and feels fine. Patient states she took all medications as prescribed, and completed dialysis session earlier today without complication. Son at bedside states patient has been having similar episodes recently, as patient lives on her own and sometimes only eats a biscuit prior to taking her insulin. Time Seen by Provider: 08/31/18 19:30 Chief Complaint (Nursing): High Blood Sugar History Per: Patient History/Exam Limitations: no limitations Onset/Duration Of Symptoms: Mins Current Symptoms Are (Timing): Gone Current Diabetic Medications: Insulin Treatment Prior To Provider Evaluation: D50W Given Response To Treatment: Good Response Additional History Per: Family (son at bedside) Past Medical History Reviewed: Historical Data, Nursing Documentation, Vital Signs Vital Signs: Last Vital Signs Temp 97.5 F L 08/31/18 17:45 Pulse 63 08/31/18 19:01 Resp 18 08/31/18 19:01 BP 162/58 H 08/31/18 19:01 Pulse Ox 100 08/31/18 19:01 - Medical History PMH: Anemia, Arthritis (R HAND FX), Asthma, Atrial Fibrillation, CAD, Diabetes, Fractures (right wrist w/soft cast s/p fall 2 weeks ago), HTN, Hyperlipidemia, Hypothyroidism, End Stage Renal Disease (on dialysis M/W/F), Chronic Kidney Disease Denies: Kidney Stones Surgical History: Coronary Stent - [facility] Procedures ASPIRATION SKIN & SUBQ (04/23/14) EXCISION OF RIGHT LOBE LIVER, PERCUTANEOUS APPROACH, DIAGN (04/01/16) FLUOROSCOPY OF GALLBLADDER & BILE DUCT USING L OSM CONTRAST (04/01/16) HEMODIALYSIS (02/17/15) PERFORMANCE OF URINARY FILTRATION, MULTIPLE (05/26/17) PERFORMANCE OF URINARY FILTRATION, SINGLE (09/02/16) RESECTION OF GALLBLADDER, PERCUTANEOUS ENDOSCOPIC APPROACH (04/01/16) Family History: States: Unknown Family Hx - Social History Hx Tobacco Use: No Hx Alcohol Use: No Hx Substance Use: No - Immunization History Hx Tetanus Toxoid Vaccination: No Hx Influenza Vaccination: Yes Hx Pneumococcal Vaccination: Yes Review Of Systems Except As Marked, All Systems Reviewed And Found Negative. Constitutional: Positive for: Other (Hypoglycemic episode). Negative for: Fever, Chills Eyes: Negative for: Vision Change ENT: Negative for: Nose Congestion Cardiovascular: Negative for: Chest Pain Respiratory: Negative for: Cough, Shortness of Breath Gastrointestinal: Negative for: Nausea, Vomiting, Abdominal Pain Neurological: Negative for: Weakness, Numbness, Change in Speech, Altered Mental Status, Headache, Dizziness Physical Exam - Physical Exam Appears: Non-toxic, No Acute Distress Skin: Warm, Dry Head: Atraumatic, Normacephalic Eye(s): bilateral: Normal Inspection, PERRL, EOMI Oral Mucosa: Moist Neck: Normal ROM Chest: Symmetrical Cardiovascular: Rhythm Regular Respiratory: Normal Breath Sounds, No Rales, No Rhonchi, No Wheezing Gastrointestinal/Abdominal: Soft, No Tenderness, No Distention Extremity: Normal ROM, Capillary Refill (less than 2 sec), Swelling (Bilateral 1+ pitting edema), Other (RUE with AV fistula) Neurological/Psych: Oriented x3, Normal Speech, Normal Cognition, Normal Cranial Nerves, Normal Motor, Normal Sensation Gait: Steady ED Course And Treatment - Laboratory Results Result Diagrams: 08/31/18 19:29 08/31/18 19:29 ECG: Interpreted By Me, Viewed By Me Interpretation Of ECG: bigeminy, left axis deviation Rate From EC (bpm) O2 Sat by Pulse Oximetry: 100 (NC) Pulse Ox Interpretation: Normal Medical Decision Making Medical Decision Making: Time: 19:35 Initial Impression: Hypoglycemic episode Initial Plan: --CMP --troponin I --CBC --Chest x-ray --EKG 20:[address] Monae, patient accepted for admission. Disposition Discussed With : Ab Monae Doctor Will See Patient In The: Hospital Counseled Patient/Family Regarding: Studies Performed, Diagnosis - Disposition Disposition: HOSPITALIZED Disposition Time: 20:15 Condition: IMPROVED - POA Present On Arrival: Poor Glycemic Control - Clinical Impression Clinical Impression: Hypoglycemia - Scribe Statement The provider has reviewed the documentation as recorded by the Scribe (Maggie Cunha) Provider Attestation: All medical record entries made by the Scribe were at my direction and personally dictated by me. I have reviewed the chart and agree that the record accurately reflects my personal performance of the history, physical exam, medical decision making, and the department course for this patient. I have also personally directed, reviewed, and agree with the discharge instructions and disposition.
[2018-08-31] MEDS ORDERED: Dextrose 50% SYRINGE Inj (50 ml) IV PRN (22:00)
[2018-08-31] MEDS ORDERED: Glucagon Recombinant 1 mg Inj IM PRN (22:00)
[2018-08-31 23:16] VITALS: RESP 20
[2018-09-01] MEDS: (Novolog) Insulin Aspart, Recombinant 100 u/ml 10 ml vial SC SCH ×4 (00:45→12:13)
[2018-09-01 08:11] VITALS: BP 163/67; PULSE 71; TEMP 97.3
--- NOTE | 2018-09-01 09:02 | RAD ---
Chest x-ray single frontal view HISTORY: Infiltrate. COMPARISON: 05/26/2017 Findings: Venous congestion. Right hilar prominence. Mild patchy increased markings at the left lung base. Biapical pleural thickening with upper lobe granulomatous changes. Top normal heart size. Degenerative changes in the spine and shoulders. Impression: Venous congestion. Right hilar prominence. Mild patchy increased markings at the left lung base. Biapical pleural thickening with upper lobe granulomatous changes.
[2018-09-01] MEDS ORDERED: Pantoprazole 40 mg EC Tab PO SCH (10:00)
--- NOTE | 2018-09-01 14:19 | CP.PCM.HP ---
History of Present Illness - History of Present Illness History of Present Illness: 78 years old female suddenly became confused while on the phone with her daughter. (11 was called, and the EMS found her glucose to be 29 . She received one ampule od D50 IV and recovered her full normal mental status. She states that she was eating normally and took her regular Lantus 6 units s/c the night previously. Her blood glucose has been good since her hospitalization, and she is eating normally. [facility] Present on Admission - Present on Admission Any Indicators Present on Admission: No Review of Systems - Neurological Neurological: Confusion Past Patient History - Infectious Disease Hx of Infectious Diseases: None - Tetanus Immunizations Tetanus Immunization: Unknown - Past Medical History & Family History Past Medical History?: Yes - Past Social History Smoking Status: Never Smoked Chewing Tobacco Use: No Cigar Use: No Alcohol: None Drugs: Denies Home Situation {Lives}: Alone - CARDIAC Hx Atrial Fibrillation: Yes Hx Hypertension: Yes - PULMONARY Hx Asthma: Yes - NEUROLOGICAL Hx Neurological Disorder: No - HEENT Hx HEENT Problems: Yes Other/Comment: wear eyeglasses - RENAL Hx Chronic Kidney Disease: Yes Hx Kidney Stones: No - ENDOCRINE/METABOLIC Hx Hypothyroidism: Yes - HEMATOLOGICAL/ONCOLOGICAL Hx Anemia: Yes - INTEGUMENTARY Hx Dermatological Problems: No - MUSCULOSKELETAL/RHEUMATOLOGICAL Hx Falls: Yes - GASTROINTESTINAL Hx Gastrointestinal Disorders: Yes Hx Constipation: Yes - GENITOURINARY/GYNECOLOGICAL Hx Genitourinary Disorders: No - PSYCHIATRIC Hx Substance Use: No - SURGICAL HISTORY Hx Coronary Stent: Yes - ANESTHESIA Hx Anesthesia: Yes Hx Anesthesia Reactions: No Hx Malignant Hyperthermia: No Meds Allergies/Adverse Reactions: Allergies Allergy/AdvReac Type Severity Reaction Status Date / Time No Known Allergies Allergy Verified 03/18/18 17:08 Physical Exam - Constitutional Appears: Well, No Acute Distress - Head Exam Head Exam: NORMAL INSPECTION - Eye Exam Eye Exam: Normal appearance Pupil Exam: NORMAL ACCOMODATION - ENT Exam ENT Exam: Normal Exam - Neck Exam Neck exam: Positive for: Normal Inspection - Respiratory Exam Respiratory Exam: Clear to Auscultation Bilateral, NORMAL BREATHING PATTERN - Cardiovascular Exam Cardiovascular Exam: REGULAR RHYTHM, Systolic Murmur - GI/Abdominal Exam GI & Abdominal Exam: Normal Bowel Sounds, Soft - Rectal Exam Rectal Exam: Deferred - Exam Exam: NORMAL INSPECTION - Extremities Exam Extremities exam: Positive for: normal inspection - Back Exam Back exam: NORMAL INSPECTION - Neurological Exam Neurological exam: Alert, CN II-XII Intact, Oriented x3 - Psychiatric Exam Psychiatric exam: Anxious - Skin Skin Exam: Dry, Intact, Normal Color, Warm Results - Vital Signs Recent Vital Signs: Last Vital Signs Temp 97.3 F L 09/01/18 08:10 Pulse 71 09/01/18 08:10 Resp 20 09/01/18 08:10 BP 163/67 H 09/01/18 08:10 Pulse Ox 95 09/01/18 08:10 - Labs Result Diagrams: 08/31/18 19:29 08/31/18 19:29 Labs: Laboratory Results - last 24 hr 08/31/18 08/31/18 08/31/18 17:31 18:03 18:58 WBC RBC Hgb Hct MCV MCH MCHC RDW Plt Count MPV Neut % (Auto) Lymph % (Auto) [place] % (Auto) Eos % (Auto) Baso % (Auto) Neut # (Auto) Lymph # (Auto) [place] # (Auto) Eos # (Auto) Baso # (Auto) Sodium Potassium Chloride Carbon Dioxide Anion Gap BUN Creatinine Est GFR ( Amer) Est GFR (Non-Af Amer) POC Glucose (mg/dL) 113 H 71 114 H Random Glucose Calcium Total Bilirubin AST ALT Alkaline Phosphatase Troponin I Total Protein Albumin Globulin Albumin/Globulin Ratio 08/31/18 08/31/18 08/31/18 19:29 19:29 19:33 WBC 7.3 RBC 4.61 Hgb 12.4 Hct 37.8 MCV 82.0 D MCH 26.9 L MCHC 32.8 L RDW 15.8 H Plt Count 244 MPV 8.3 Neut % (Auto) 62.8 Lymph % (Auto) 16.8 L [place] % (Auto) 11.5 H Eos % (Auto) 7.2 H Baso % (Auto) 1.7 Neut # (Auto) 4.6 Lymph # (Auto) 1.2 [place] # (Auto) 0.8 Eos # (Auto) 0.5 Baso # (Auto) 0.1 Sodium 133 Potassium 3.9 Chloride 86 L Carbon Dioxide 34 H Anion Gap 17 BUN 29 H Creatinine 4.8 H Est GFR ( Amer) 11 Est GFR (Non-Af Amer) 9 POC Glucose (mg/dL) 134 H Random Glucose 159 H Calcium 8.3 L Total Bilirubin 0.6 AST 35 ALT 19 Alkaline Phosphatase 171 H Troponin I 0.0500 Total Protein 7.9 Albumin 4.1 Globulin 3.8 Albumin/Globulin Ratio 1.1 09/01/18 09/01/18 09/01/18 00:50 04:01 07:12 WBC RBC Hgb Hct MCV MCH MCHC RDW Plt Count MPV Neut % (Auto) Lymph % (Auto) [place] % (Auto) Eos % (Auto) Baso % (Auto) Neut # (Auto) Lymph # (Auto) [place] # (Auto) Eos # (Auto) Baso # (Auto) Sodium Potassium Chloride Carbon Dioxide Anion Gap BUN Creatinine Est GFR ( Amer) Est GFR (Non-Af Amer) POC Glucose (mg/dL) 183 H 161 H 154 H Random Glucose Calcium Total Bilirubin AST ALT Alkaline Phosphatase Troponin I Total Protein Albumin Globulin Albumin/Globulin Ratio 09/01/18 11:05 WBC RBC Hgb Hct MCV MCH MCHC RDW Plt Count MPV Neut % (Auto) Lymph % (Auto) [place] % (Auto) Eos % (Auto) Baso % (Auto) Neut # (Auto) Lymph # (Auto) [place] # (Auto) Eos # (Auto) Baso # (Auto) Sodium Potassium Chloride Carbon Dioxide Anion Gap BUN Creatinine Est GFR ( Amer) Est GFR (Non-Af Amer) POC Glucose (mg/dL) 279 H Random Glucose Calcium Total Bilirubin AST ALT Alkaline Phosphatase Troponin I Total Protein Albumin Globulin Albumin/Globulin Ratio Assessment & Plan (1) Hypoglycemia Status: Resolved (2) CAD (coronary artery disease) Status: Chronic (3) Hypothyroidism Status: Chronic Decision To Admit - Pt Status Changed To: Hospital Disposition Of: Observation - . Bed Request Type: Regular Admitting Physician: Ab Monae
--- NOTE | 2018-09-01 14:27 | CP.PCM.PN ---
Subjective - Date & Time of Evaluation Date of Evaluation: 09/01/18 Time of Evaluation: 14:25 - Subjective Subjective: Patient has no complaint, eating well. Serial blood glucose has been OK. To discharge home today. Discontinue Lantus. Try Januvia 25 mg PO qd. Resume all home meds, except Lantus. HD in AM. Objective - Vital Signs/Intake and Output Vital Signs (last 24 hours): Temp Pulse Resp BP Pulse Ox 97.3 F L 71 20 163/67 H 95 09/01/18 08:10 09/01/18 08:10 09/01/18 08:10 09/01/18 08:10 09/01/18 08:10 - Medications Medications: Current Medications Amlodipine Besylate (Norvasc) 10 mg PO DAILY [facility] Last Admin: 09/01/18 09:43 Dose: 10 mg Aspirin (Ecotrin) 81 mg PO DAILY [facility] Last Admin: 09/01/18 09:43 Dose: 81 mg Calcium Acetate (Phoslo) 667 mg PO BIDCC [facility] Last Admin: 09/01/18 08:42 Dose: 667 mg Carvedilol (Coreg) 6.25 mg PO BID [facility] Last Admin: 09/01/18 09:43 Dose: 6.25 mg Cinacalcet (Sensipar) 30 mg PO DAILY [facility] Last Admin: 09/01/18 10:53 Dose: 30 mg Clonidine HCl (Catapres) 0.2 mg PO BID [facility] Last Admin: 09/01/18 09:43 Dose: 0.2 mg Dextrose (Dextrose 50% Inj) 0 ml IV STAT PRN; Protocol PRN Reason: Hypoglycemia Protocol Dextrose (Glutose 15) 0 gm PO ONCE PRN; Protocol PRN Reason: Hypoglycemia Protocol Glucagon (Glucagen Diagnostic Kit) 0 mg IM STAT PRN; Protocol PRN Reason: Hypoglycemia Protocol Heparin Sodium (Porcine) (Heparin) 5,000 units SC Q8 [facility] Last Admin: 09/01/18 13:57 Dose: 5,000 units Dextrose (Dextrose 5% In Water 1000 Ml) 1,000 mls @ 40 mls/hr IV .Q24H [facility] Last Admin: 08/31/18 22:39 Dose: 40 mls/hr Dextrose (Dextrose 5% In Water 1000 Ml) 1,000 mls @ 0 mls/hr IV .Q0M PRN; Protocol PRN Reason: Hypoglycemia Protocol Influenza Virus Vaccine (Fluzone Quad [id number]) 60 mcg IM .ONCE ONE Stop: 09/03/18 10:01 Insulin Aspart (Novolog) 0 unit SC Q4 [facility]; Protocol Last Admin: 09/01/18 12:13 Dose: 3 unit Losartan Potassium (Cozaar) 50 mg PO DAILY [facility] Last Admin: 09/01/18 12:13 Dose: 50 mg Oxcarbazepine (Trileptal) 150 mg PO BID [facility] Last Admin: 09/01/18 09:43 Dose: 150 mg Pantoprazole Sodium (Protonix Ec Tab) 40 mg PO DAILY [facility] Last Admin: 09/01/18 09:43 Dose: 40 mg Pneumococcal Polyvalent Vaccine (Pneumovax 23 Vaccine) 0.5 ml IM .ONCE ONE Stop: 09/03/18 10:01 Rosuvastatin Calcium (Crestor) 10 mg PO HS [facility] Last Admin: 08/31/18 22:41 Dose: 10 mg - Labs Labs: 08/31/18 19:29 08/31/18 19:29 - Constitutional Appears: Well, No Acute Distress - Head Exam Head Exam: NORMAL INSPECTION - Eye Exam Eye Exam: Normal appearance Pupil Exam: NORMAL ACCOMODATION - ENT Exam ENT Exam: Normal Exam - Neck Exam Neck Exam: Normal Inspection - Respiratory Exam Respiratory Exam: Clear to Ausculation Bilateral, NORMAL BREATHING PATTERN - Cardiovascular Exam Cardiovascular Exam: REGULAR RHYTHM - GI/Abdominal Exam GI & Abdominal Exam: Soft, Normal Bowel Sounds - Rectal Exam Rectal Exam: Deferred - Extremities Exam Extremities Exam: Normal Inspection - Back Exam Back Exam: NORMAL INSPECTION - Neurological Exam Neurological Exam: Alert, Awake, Oriented x3 - Psychiatric Exam Psychiatric exam: Anxious - Skin Skin Exam: Dry, Intact, Normal Color, Warm Assessment and Plan (1) Hypoglycemia Assessment & Plan: Discontinue Lantus. Try Januvia 25 mg PO qd. Status: Resolved (2) CAD (coronary artery disease) Status: Chronic (3) Hypothyroidism Status: Chronic
[2018-09-02 00:54] VITALS: O2SAT 100
--- NOTE | 2018-09-02 12:31 | CARD ---
APPROVED REPORT Date of service: 08/31/2018 EKG Measurement Heart [id number] <Conclusion> Sinus rhythm with frequent premature ventricular complexes in a pattern of bigeminy Left axis deviation Anterior infarct, age undetermined Prolonged QT Abnormal ECG
[2018-09-03] MEDS ORDERED: Pneumococcal 23-Valent Vaccine IM ONE (10:00)
[2018-09-03] MEDS ORDERED: Influenza Vaccine 60 MCG/0.5 ML SYR (3 yr & up) IM ONE (10:00)
== END 2018-09-01 15:25 | disposition home or self-care (01) ==
LOC: C.ER 17:27 → C.9E 20:18 → C.3T 21:07
PROVIDERS: ADMIT Internal Medicine Cardiovascular Disease; ATTEND Internal Medicine Cardiovascular Disease
DX: E11.22 Type 2 diabetes mellitus with diabetic chronic kidney disease (principal); E11.649 Type 2 diabetes mellitus with hypoglycemia without coma; I12.0 Hypertensive chronic kidney disease with stage 5 chronic kidney disease or end stage renal disease; D50.9 Iron deficiency anemia, unspecified; I48.91 Unspecified atrial fibrillation; E78.5 Hyperlipidemia, unspecified; I25.10 Atherosclerotic heart disease of native coronary artery without angina pectoris; N18.6 End stage renal disease; J45.909 Unspecified asthma, uncomplicated; M19.041 Primary osteoarthritis, right hand; E03.9 Hypothyroidism, unspecified; Z99.2 Dependence on renal dialysis; Z95.5 Presence of coronary angioplasty implant and graft; Z91.81 History of falling; Z79.4 Long term (current) use of insulin
CPT/HCPCS: 71045; 80053; 82948; 84484; 85025; 93005; 99285; G0378; J1644; J7070